=== PATIENT | female | born 1940 | race Caucasian/White ===

== ENCOUNTER 2017-06-03 06:57 | Outpatient (RCR) | payer MEDICARE, SELFPAY ==
[2017-06-03 08:18] LABS: Absolute Neutrophil Count 1.9 X10^3/uL (2.0-7.7); Basophil# 0.01 X10^3/uL; Basophil% 0.3 % (0-1); Eosinophil# 0.07 X10^3/uL; Eosinophils% 2.4 % (0-5); Hematocrit 28.4 % (37-47); Hemoglobin 9.3 g/dl (12.0-15.0); Lymphocyte % 24.1 % (19-41); Mean Corp Hgb Conc 32.7 g/gl (32-36); Mean Corpuscular Hgb 36.5 pg (27.0-32.0); Mean Corpuscular Volume 111.4 fL (81-99); Mean Platelet Vol. 12.2 fl (6.2-12.0); Monocyte# 0.18 X10^3/uL; Monocyte% 6.2 % (0-10); Neutrophil # 1.93 X10^3/uL (2.7-7.7); Neutrophil % 66.7 % (47-70); Platelet Count 105 K/mm3 (150-450); RBC Distribution Width CV 16.4 % (11.6-14.6); RBC Distribution Width SD 66.6 fl (35.1-43.9); Red Blood Count 2.55 M/mm3 (4.2-5.4); White Blood Count 2.9 K/mm3 (4.4-11.0)
[2017-06-03 08:20] LABS: Differential Indicated SCAN CRITERIA MET; POSITIVE COUNT NO; POSITIVE DIFFERENTIAL NO; POSITIVE MORPHOLOGY YES
[2017-06-03 08:42] LABS: ALB/GLOB Ratio 1.1 RATIO (0.9-2.4); AST(SGOT) 21 U/L (15-37); Alanine Aminotransfer ALT/SGPT 24 U/L (12-78); Albumin, Serum 3.5 g/dL (3.4-5.0); Alkaline Phosphatase 51 U/L (45-117); Anion Gap 11 (5-15); Anisocytosis 2+; BUN 30 mg/dL (7-18); BUN/Creat Ratio 26.5 RATIO (10-20); Calcium,Total 8.9 mg/dL (8.5-10.1); Chloride 106 mmol/L (98-107); Creatinine, Serum 1.13 mg/dL (0.55-1.02); Differential Comment SCANNED; EST Glomerular Filtration Rate 50 mL/min (>60); Est Glom Filt Rate - Afr Amer 60 mL/min (>60); Globulin 3.3 g/dL (2.2-4.2); Glucose 148 mg/dL (70-110); Potassium 4.4 mmol/L (3.5-5.1); Protein, Total 6.8 g/dL (6.4-8.2); Sodium Level 140 mmol/L (136-145)
[2017-06-03 08:43] LABS: Macrocytosis 2+
== END 2017-06-03 07:15 | disposition home or self-care (01) ==
LOC: LAB 06:57
PROVIDERS: Family Provider Internal Medicine; PCP Internal Medicine; Visit Provider Nurse Practitioner Acute Care
DX: G70.00 Myasthenia gravis without (acute) exacerbation (principal); Z51.81 Encounter for therapeutic drug level monitoring
CPT/HCPCS: 36415; 80053; 85025

== ENCOUNTER 2017-07-01 07:02 | Outpatient (RCR) | payer MEDICARE, SELFPAY ==
[2017-07-01 09:22] LABS: Absolute Lymphocyte Count 0.53 X10^3/ul (0.83-4.51); Absolute Neutrophil Count 1.7 X10^3/uL (2.0-7.7); Basophil# 0.01 X10^3/uL; Basophil% 0.4 % (0-1); Eosinophil# 0.06 X10^3/uL; Eosinophils% 2.4 % (0-5); Hematocrit 27.9 % (37-47); Hemoglobin 9.1 g/dl (12.0-15.0); Lymphocyte # 0.53 X10^3/ul (4.0); Lymphocyte % 21.5 % (19-41); Mean Corp Hgb Conc 32.6 g/gl (32-36); Mean Corpuscular Volume 113.4 fL (81-99); Mean Platelet Vol. 10.6 fl (6.2-12.0); Monocyte% 8.1 % (0-10); Neutrophil # 1.66 X10^3/uL (2.7-7.7); Neutrophil % 67.6 % (47-70); Platelet Count 103 K/mm3 (150-450); RBC Distribution Width CV 16.2 % (11.6-14.6); RBC Distribution Width SD 63.2 fl (35.1-43.9); Red Blood Count 2.46 M/mm3 (4.2-5.4); White Blood Count 2.5 K/mm3 (4.4-11.0)
[2017-07-01 09:24] LABS: Differential Indicated SCAN CRITERIA MET; POSITIVE COUNT NO; POSITIVE DIFFERENTIAL YES; POSITIVE MORPHOLOGY NO
[2017-07-01 09:27] LABS: ALB/GLOB Ratio 1.1 RATIO (0.9-2.4); AST(SGOT) 27 U/L (15-37); Alanine Aminotransfer ALT/SGPT 22 U/L (13-56); Albumin, Serum 3.5 g/dL (3.2-5.0); Alkaline Phosphatase 53 U/L (45-117); Anion Gap 12 (5-15); BUN 19 mg/dL (7-18); BUN/Creat Ratio 19.5 RATIO (10-20); Chloride 102 mmol/L (98-107); Creatinine, Serum 0.98 mg/dL (0.55-1.02); EST Glomerular Filtration Rate 59 mL/min (>60); Est Glom Filt Rate - Afr Amer 72 mL/min (>60); Globulin 3.1 g/dL (2.2-4.2); Glucose 150 mg/dL (74-106); Potassium 4.2 mmol/L (3.5-5.1); Protein, Total 6.6 g/dL (6.4-8.2); Sodium Level 138 mmol/L (136-145)
[2017-07-08 08:30] LABS: ACHR AB Modulating <12 % (0-20); ACHR Recep AB, Blocking 47 % (0-25)
== END 2017-07-01 07:30 | disposition home or self-care (01) ==
LOC: LAB 07:02
PROVIDERS: Psychiatry & Neurology Neurology; Family Provider Internal Medicine; PCP Internal Medicine; Visit Provider Nurse Practitioner Acute Care
DX: Z51.81 Encounter for therapeutic drug level monitoring (principal); G70.00 Myasthenia gravis without (acute) exacerbation
CPT/HCPCS: 36415; 80053; 83519; 85025

== ENCOUNTER 2017-08-05 06:59 | Outpatient (RCR) | payer MEDICARE, SELFPAY ==
[2017-08-05 08:05] LABS: Absolute Lymphocyte Count 0.72 X10^3/ul (0.83-4.51); Absolute Neutrophil Count 2.4 X10^3/uL (2.0-7.7); Basophil# 0.01 X10^3/uL; Basophil% 0.3 % (0-1); Eosinophil# 0.09 X10^3/uL; Eosinophils% 2.6 % (0-5); Hematocrit 27.9 % (37-47); Hemoglobin 9.3 g/dl (12.0-15.0); Lymphocyte # 0.72 X10^3/ul (4.0); Lymphocyte % 20.7 % (19-41); Mean Corp Hgb Conc 33.3 g/gl (32-36); Mean Corpuscular Volume 108.1 fL (81-99); Mean Platelet Vol. 11.9 fl (6.2-12.0); Monocyte# 0.27 X10^3/uL; Monocyte% 7.8 % (0-10); Neutrophil # 2.39 X10^3/uL (2.7-7.7); Neutrophil % 68.6 % (47-70); Platelet Count 95 K/mm3 (150-450); RBC Distribution Width CV 16.3 % (11.6-14.6); RBC Distribution Width SD 64.2 fl (35.1-43.9); Red Blood Count 2.58 M/mm3 (4.2-5.4); White Blood Count 3.5 K/mm3 (4.4-11.0)
[2017-08-05 08:14] LABS: POSITIVE COUNT NO; POSITIVE DIFFERENTIAL NO; POSITIVE MORPHOLOGY NO
[2017-08-05 08:49] LABS: ALB/GLOB Ratio 1.1 RATIO (0.9-2.4); AST(SGOT) 26 U/L (15-37); Alanine Aminotransfer ALT/SGPT 23 U/L (13-56); Albumin, Serum 3.4 g/dL (3.2-5.0); Alkaline Phosphatase 52 U/L (45-117); Anion Gap 10 (5-15); BUN 26 mg/dL (7-18); BUN/Creat Ratio 24.5 RATIO (10-20); Calcium,Total 8.4 mg/dL (8.5-10.1); Chloride 105 mmol/L (98-107); Creatinine, Serum 1.06 mg/dL (0.55-1.02); EST Glomerular Filtration Rate 54 mL/min (>60); Est Glom Filt Rate - Afr Amer 65 mL/min (>60); Glucose 162 mg/dL (74-106); Potassium 4.3 mmol/L (3.5-5.1); Protein, Total 6.4 g/dL (6.4-8.2); Sodium Level 137 mmol/L (136-145)
== END 2017-08-05 07:00 | disposition home or self-care (01) ==
LOC: LAB 06:59
PROVIDERS: Family Provider Internal Medicine; PCP Internal Medicine; Visit Provider Nurse Practitioner Acute Care
DX: Z51.81 Encounter for therapeutic drug level monitoring (principal)
CPT/HCPCS: 36415; 80053; 85025

== ENCOUNTER 2017-09-02 07:02 | Outpatient (RCR) | payer MEDICARE, SELFPAY ==
[2017-09-02 08:28] LABS: Absolute Lymphocyte Count 1.12 X10^3/ul (0.83-4.51); Absolute Neutrophil Count 2.6 X10^3/uL (2.0-7.7); Basophil# 0.02 X10^3/uL; Basophil% 0.5 % (0-1); Eosinophil# 0.09 X10^3/uL; Eosinophils% 2.1 % (0-5); Hematocrit 29.7 % (37-47); Hemoglobin 9.6 g/dl (12.0-15.0); Lymphocyte # 1.12 X10^3/ul (4.0); Lymphocyte % 25.9 % (19-41); Mean Corp Hgb Conc 32.3 g/gl (32-36); Mean Corpuscular Hgb 34.3 pg (27.0-32.0); Mean Corpuscular Volume 106.1 fL (81-99); Mean Platelet Vol. 10.3 fl (6.2-12.0); Monocyte# 0.45 X10^3/uL; Monocyte% 10.4 % (0-10); Neutrophil # 2.64 X10^3/uL (2.7-7.7); Neutrophil % 60.9 % (47-70); Platelet Count 84 K/mm3 (150-450); RBC Distribution Width CV 15.1 % (11.6-14.6); White Blood Count 4.3 K/mm3 (4.4-11.0)
[2017-09-02 08:29] LABS: POSITIVE COUNT NO; POSITIVE DIFFERENTIAL NO; POSITIVE MORPHOLOGY NO
[2017-09-02 09:00] LABS: ALB/GLOB Ratio 1.2 RATIO (0.9-2.4); AST(SGOT) 25 U/L (15-37); Alanine Aminotransfer ALT/SGPT 29 U/L (13-56); Albumin, Serum 3.5 g/dL (3.2-5.0); Alkaline Phosphatase 60 U/L (45-117); Anion Gap 5 (5-15); BUN 24 mg/dL (7-18); BUN/Creat Ratio 20.9 RATIO (10-20); Calcium,Total 8.7 mg/dL (8.5-10.1); Chloride 109 mmol/L (98-107); Creatinine, Serum 1.15 mg/dL (0.55-1.02); EST Glomerular Filtration Rate 49 mL/min (>60); Est Glom Filt Rate - Afr Amer 59 mL/min (>60); Globulin 2.9 g/dL (2.2-4.2); Glucose 140 mg/dL (74-106); Potassium 4.1 mmol/L (3.5-5.1); Protein, Total 6.4 g/dL (6.4-8.2); Sodium Level 140 mmol/L (136-145)
== END 2017-09-02 08:00 | disposition home or self-care (01) ==
LOC: LAB 07:02
PROVIDERS: Family Provider Internal Medicine; PCP Internal Medicine; Visit Provider Nurse Practitioner Acute Care
DX: Z51.81 Encounter for therapeutic drug level monitoring (principal)
CPT/HCPCS: 36415; 80053; 85025

== ENCOUNTER 2017-09-24 15:22 | Emergency (ER) | payer MEDICARE, SELFPAY ==
[2017-09-24 15:25] VITALS: BP 178/80; PULSE 71; RESP 16; TEMP 36.5; O2SAT 98; BMI 45.1
--- NOTE | 2017-09-24 15:37 | RAD_ITS ---
STUDY: X-RAY CHEST REASON FOR EXAM: Female, 77 years old. Cough and shortness of breath. TECHNIQUE: PA and lateral views of the chest. COMPARISON: CT of the chest dated September 26, 2014 FINDINGS: Cardiac monitoring leads are present. The lungs are clear and expanded. There is no demonstrated pleural abnormality. There is mild cardiac enlargement. There are calcified mediastinal and hilar lymph nodes. Normal visualized pulmonary arteries. There is atherosclerotic calcification of the aortic arch with tortuosity. There is demineralization of the osseous structures. There is multilevel thoracic spondylosis. Normal visualized ribs, clavicles, and shoulders. There is no demonstrated abnormality of the visualized soft tissue structures of the upper abdomen. RAD/Chest PA and Lateral IMPRESSION: Mild cardiomegaly without evidence of acute cardiopulmonary disease. Electronically Signed: Sparkle Lu MD at 16:43 EDT , Service support ,
--- NOTE | 2017-09-24 15:37 | EKG12_ITS ---
Test Reason : DYSRHYTHMIA Blood Pressure : / mmHG Vent. Rate : 066 BPM Atrial Rate : 066 BPM P-R Int : 216 ms QRS Dur : 078 ms QT Int : 382 ms P-R-T Axes : -06 047 016 degrees QTc Int : 400 ms Sinus rhythm with 1st degree A-V block Low voltage QRS Borderline ECG Confirmed by SAMMY SHERWOOD, ANIYA ([id number]), science editor AMISHA ESCOTO ([id number]) on 09/26/2017 3:03:40 PM Referred By: RUSTAM Confirmed By:ANIYA CHRISTIANSON MD
--- NOTE | 2017-09-24 15:40 | NURSING ---
NO OLD EKGS
[2017-09-24 16:00] VITALS: RESP 12
[2017-09-24 16:01] VITALS: O2SAT 96
[2017-09-24] MEDS: Ipratropium/Albuterol Sulfate 3 ML AMPUL.NEB INHALATION (16:13)
[2017-09-24 16:15] VITALS: PULSE 67; RESP 12
[2017-09-24 16:20] LABS: Absolute Lymphocyte Count 0.56 X10^3/ul (0.83-4.51); Absolute Neutrophil Count 2.2 X10^3/uL (2.0-7.7); Anion Gap 7 (5-15); BUN 22 mg/dL (7-18); BUN/Creat Ratio 21.2 RATIO (10-20); Basophil# 0.02 X10^3/uL; Basophil% 0.6 % (0-1); Chloride 105 mmol/L (98-107); Creatinine, Serum 1.04 mg/dL (0.55-1.02); EST Glomerular Filtration Rate 55 mL/min (>60); Eosinophil# 0.11 X10^3/uL; Eosinophils% 3.2 % (0-5); Est Glom Filt Rate - Afr Amer 66 mL/min (>60); Estimated Creatinine Clearance 36.97 ml/min; Glucose 236 mg/dL (74-106); Hematocrit 29.4 % (37-47); Hemoglobin 9.6 g/dl (12.0-15.0); Lymphocyte # 0.56 X10^3/ul (4.0); Lymphocyte % 16.2 % (19-41); Mean Corp Hgb Conc 32.7 g/gl (32-36); Mean Corpuscular Hgb 33.8 pg (27.0-32.0); Mean Corpuscular Volume 103.5 fL (81-99); Mean Platelet Vol. 11.3 fl (6.2-12.0); Monocyte# 0.52 X10^3/uL; Monocyte% 15.1 % (0-10); Neutrophil # 2.24 X10^3/uL (2.7-7.7); Neutrophil % 64.9 % (47-70); Platelet Count 81 K/mm3 (150-450); Potassium 4.9 mmol/L (3.5-5.1); RBC Distribution Width CV 14.5 % (11.6-14.6); RBC Distribution Width SD 53.5 fl (35.1-43.9); Red Blood Count 2.84 M/mm3 (4.2-5.4); Sodium Level 136 mmol/L (136-145); White Blood Count 3.5 K/mm3 (4.4-11.0)
[2017-09-24 16:21] LABS: Differential Indicated SCAN CRITERIA MET; POSITIVE COUNT NO; POSITIVE DIFFERENTIAL YES; POSITIVE MORPHOLOGY NO
[2017-09-24 16:40] LABS: Anisocytosis RARE; Platelet Estimate MOD DEC (ADEQ)
[2017-09-24 16:41] LABS: Macrocytosis 1+; Ovalocyte RARE
[2017-09-24 17:08] LABS: BNP,B-Type NATRIURETIC PEPTIDE 44.9 pg/mL (0-100)
--- NOTE | 2017-09-24 17:28 | ED.DCSUM_ITS ---
- ER Visit Summary Date of Service: 09/24/17 Chief Complaint: [Dyspnea] History of Present Illness: The patient is a 77 F [presents the emergency department with shortness of breath over the last 2 days. Patient states that she has had a cough for about 4 or 5 days but thought it was just some allergies. Patient is concerned because she has had issues with her myasthenia gravis in the past where she required intubation 3 years ago. Since patient's been medicated and compliant with her myasthenia medication she has not had any issues. Patient has not had a fever at home. Cough is mostly nonproductive.] Physical Examination: [HEENT-PERRLA, EOMI. Cranial nerves II through XII grossly intact. TMs clear. Mucous membranes moist. No adenopathy. Cardiovascular-regular rate and rhythm without murmur or ectopy Lungs-good aeration bilaterally with some faint expiratory wheezes noted bilaterally. There is no accessory muscle use or retractions. Abdomen-normoactive bowel sounds, soft, nontender, no rebound or rigidity, no peritoneal signs. Extremities-intact ?4, normal range of motion, normal pulses, atraumatic] Test Results: [EKG obtained on arrival showed a sinus rhythm with a ventricular rate of 66 bpm. CBC with differential showed a white blood cell count of 3.5, hemoglobin 9.6, hematocrit 30, platelets E1. Chemistries unremarkable. Glucose was 236. Troponin is less than 0.015. BNP was 45. NIF was 30. Chest x-ray showed some mild cardiomegaly otherwise nothing acute.] Emergency Department Course and Treatment: [Patient was treated with DuoNeb aerosol. Patient was started on Zithromax.] Treatment Plan: [Patient will be started on Zithromax and given an albuterol MDI.] Patient advised to follow-up with her primary care physician within next 3-5 days. Disposition: [Discharged home in stable condition.] Impression: [Asthmatic bronchitis] This note was generated with [employer] dictation software. It may contain incorrect words, spelling, and punctuation that were not noted in review of the chart prior to signing ED Disposition - Plan for ED Patient: Chief Complaint: Shortness of Breath Referrals: Hector Del Cid MD [Primary Care Provider] -
--- NOTE | 2017-09-24 17:28 | ED.DEP ---
ED Disposition - Plan for ED Patient: Chief Complaint: Shortness of Breath Instructions: ED Bronchitis Asthmatic Prescriptions: Azithromycin [Zithromax] 250 mg PO DAILY #4 tab Referrals: Hector Del Cid MD [Primary Care Provider] - 3-5 Days
[2017-09-24 17:40] VITALS: PULSE 68; RESP 16
[2017-09-24 17:59] VITALS: BP 152/83; PULSE 64; RESP 18; O2SAT 97
--- NOTE | 2017-09-25 15:52 | CM.ED ---
ED CALLBACK: Follow-up call placed to patient. No answer and no voicemail machine.
== END 2017-09-24 18:01 | disposition home or self-care (01) ==
LOC: ED 16:22
PROVIDERS: Emergency Provider Emergency Medicine; Family Provider Internal Medicine; PCP Internal Medicine
DX: J45.909 Unspecified asthma, uncomplicated (principal); G70.00 Myasthenia gravis without (acute) exacerbation; I10 Essential (primary) hypertension; E11.9 Type 2 diabetes mellitus without complications; E78.00 Pure hypercholesterolemia, unspecified; Z79.82 Long term (current) use of aspirin; Z79.4 Long term (current) use of insulin; Z79.84 Long term (current) use of oral hypoglycemic drugs; Z79.899 Other long term (current) drug therapy
CPT/HCPCS: 71046; 80048; 83880; 84484; 85025; 93005; 94640; 95831; 99284; A4216

== ENCOUNTER 2017-09-30 06:57 | Outpatient (RCR) | payer MEDICARE, SELFPAY ==
[2017-09-30 07:52] LABS: Absolute Lymphocyte Count 0.78 X10^3/ul (0.83-4.51); Absolute Neutrophil Count 1.9 X10^3/uL (2.0-7.7); Basophil# 0.01 X10^3/uL; Basophil% 0.3 % (0-1); Eosinophil# 0.11 X10^3/uL; Eosinophils% 3.6 % (0-5); Hematocrit 28.3 % (37-47); Hemoglobin 9.3 g/dl (12.0-15.0); Lymphocyte # 0.78 X10^3/ul (4.0); Lymphocyte % 25.6 % (19-41); Mean Corp Hgb Conc 32.9 g/gl (32-36); Mean Corpuscular Hgb 33.5 pg (27.0-32.0); Mean Corpuscular Volume 101.8 fL (81-99); Mean Platelet Vol. 10.8 fl (6.2-12.0); Monocyte# 0.25 X10^3/uL; Monocyte% 8.2 % (0-10); Neutrophil # 1.89 X10^3/uL (2.7-7.7); POSITIVE COUNT NO; POSITIVE DIFFERENTIAL NO; POSITIVE MORPHOLOGY NO; Platelet Count 78 K/mm3 (150-450); RBC Distribution Width CV 14.2 % (11.6-14.6); RBC Distribution Width SD 50.5 fl (35.1-43.9); Red Blood Count 2.78 M/mm3 (4.2-5.4); White Blood Count 3.1 K/mm3 (4.4-11.0)
[2017-09-30 08:22] LABS: ALB/GLOB Ratio 1.1 RATIO (0.9-2.4); AST(SGOT) 32 U/L (15-37); Alanine Aminotransfer ALT/SGPT 33 U/L (13-56); Albumin, Serum 3.5 g/dL (3.2-5.0); Alkaline Phosphatase 55 U/L (45-117); Anion Gap 9 (5-15); BUN 21 mg/dL (7-18); Calcium,Total 8.6 mg/dL (8.5-10.1); Chloride 107 mmol/L (98-107); Creatinine, Serum 1.31 mg/dL (0.55-1.02); EST Glomerular Filtration Rate 42 mL/min (>60); Est Glom Filt Rate - Afr Amer 51 mL/min (>60); Globulin 3.2 g/dL (2.2-4.2); Glucose 129 mg/dL (74-106); Potassium 4.3 mmol/L (3.5-5.1); Protein, Total 6.7 g/dL (6.4-8.2); Sodium Level 136 mmol/L (136-145)
== END 2017-09-30 07:00 | disposition home or self-care (01) ==
LOC: LAB 06:57
PROVIDERS: Family Provider Internal Medicine; PCP Internal Medicine; Visit Provider Nurse Practitioner Acute Care
DX: Z51.81 Encounter for therapeutic drug level monitoring (principal); G70.00 Myasthenia gravis without (acute) exacerbation
CPT/HCPCS: 36415; 80053; 85025

== ENCOUNTER → 2017-10-25 16:02 | Outpatient (CLI) | payer MEDICARE, SELFPAY ==
[2017-10-25 17:18] LABS: Ferritin 42 ng/mL (8-252); Iron 70 ug/dL (50-170); Iron Binding Capacity,Total 393 ug/dL (250-450); Rheumatoid Factor < 10.0 IU/mL (<15)
[2017-10-25 17:24] LABS: Vitamin B12 949 pg/mL (211-911)
[2017-10-26 13:48] LABS: ANTINUCLEAR ANTIBODIES DIRECT Negative (Negative)
[2017-10-27 11:19] LABS: CCP IgG Antibodies 9 units (0-19)
== END ==
PROVIDERS: Family Provider Internal Medicine; PCP Internal Medicine; Visit Provider Internal Medicine Hematology & Oncology
DX: D61.818 Other pancytopenia (principal); D63.8 Anemia in other chronic diseases classified elsewhere; M06.9 Rheumatoid arthritis, unspecified
CPT/HCPCS: 82607; 82728; 83540; 83550; 86038; 86200; 86431

== ENCOUNTER 2017-11-04 07:05 | Outpatient (RCR) | payer MEDICARE, SELFPAY ==
[2017-11-04 07:55] LABS: Absolute Lymphocyte Count 0.95 X10^3/ul (0.83-4.51); Absolute Neutrophil Count 3.2 X10^3/uL (2.0-7.7); Basophil# 0.02 X10^3/uL; Basophil% 0.4 % (0-1); Eosinophil# 0.13 X10^3/uL; Eosinophils% 2.7 % (0-5); Hematocrit 31.5 % (37-47); Hemoglobin 10.4 g/dl (12.0-15.0); Lymphocyte # 0.95 X10^3/ul (4.0); Lymphocyte % 19.6 % (19-41); Mean Corpuscular Hgb 30.3 pg (27.0-32.0); Mean Corpuscular Volume 91.8 fL (81-99); Mean Platelet Vol. 10.8 fl (6.2-12.0); Monocyte# 0.56 X10^3/uL; Monocyte% 11.6 % (0-10); Neutrophil # 3.18 X10^3/uL (2.7-7.7); Neutrophil % 65.7 % (47-70); Platelet Count 103 K/mm3 (150-450); RBC Distribution Width CV 14.8 % (11.6-14.6); RBC Distribution Width SD 50.3 fl (35.1-43.9); Red Blood Count 3.43 M/mm3 (4.2-5.4); White Blood Count 4.8 K/mm3 (4.4-11.0)
[2017-11-04 07:56] LABS: POSITIVE COUNT NO; POSITIVE DIFFERENTIAL NO; POSITIVE MORPHOLOGY NO
[2017-11-04 08:08] LABS: AST(SGOT) 31 U/L (15-37); Alanine Aminotransfer ALT/SGPT 32 U/L (13-56); Albumin, Serum 3.4 g/dL (3.2-5.0); Alkaline Phosphatase 54 U/L (45-117); Anion Gap 9 (5-15); BUN 24 mg/dL (7-18); BUN/Creat Ratio 22.9 RATIO (10-20); Calcium,Total 9.2 mg/dL (8.5-10.1); Chloride 99 mmol/L (98-107); Creatinine, Serum 1.05 mg/dL (0.55-1.02); EST Glomerular Filtration Rate 54 mL/min (>60); Est Glom Filt Rate - Afr Amer 66 mL/min (>60); Globulin 3.5 g/dL (2.2-4.2); Glucose 148 mg/dL (74-106); Potassium 4.3 mmol/L (3.5-5.1); Protein, Total 6.9 g/dL (6.4-8.2); Sodium Level 126 mmol/L (136-145)
== END 2017-11-04 08:30 | disposition home or self-care (01) ==
LOC: LAB 07:05
PROVIDERS: Family Provider Internal Medicine; PCP Internal Medicine; Visit Provider Nurse Practitioner Acute Care
DX: G70.00 Myasthenia gravis without (acute) exacerbation (principal); Z51.81 Encounter for therapeutic drug level monitoring
CPT/HCPCS: 36415; 80053; 85025

== ENCOUNTER 2017-12-02 07:00 | Outpatient (RCR) | payer MEDICARE, SELFPAY ==
[2017-12-02 08:47] LABS: Absolute Lymphocyte Count 0.95 X10^3/ul (0.83-4.51); Absolute Neutrophil Count 2.7 X10^3/uL (2.0-7.7); Basophil# 0.02 X10^3/uL; Basophil% 0.5 % (0-1); Eosinophil# 0.12 X10^3/uL; Eosinophils% 2.9 % (0-5); Hematocrit 31.5 % (37-47); Hemoglobin 10.2 g/dl (12.0-15.0); Lymphocyte # 0.95 X10^3/ul (4.0); Lymphocyte % 23.1 % (19-41); Mean Corp Hgb Conc 32.4 g/gl (32-36); Mean Corpuscular Hgb 30.1 pg (27.0-32.0); Mean Corpuscular Volume 92.9 fL (81-99); Mean Platelet Vol. 10.9 fl (6.2-12.0); Monocyte% 7.3 % (0-10); Neutrophil # 2.72 X10^3/uL (2.7-7.7); Neutrophil % 66.2 % (47-70); Platelet Count 100 K/mm3 (150-450); RBC Distribution Width CV 14.7 % (11.6-14.6); Red Blood Count 3.39 M/mm3 (4.2-5.4); White Blood Count 4.1 K/mm3 (4.4-11.0)
[2017-12-02 08:48] LABS: POSITIVE COUNT NO; POSITIVE DIFFERENTIAL NO; POSITIVE MORPHOLOGY NO
[2017-12-02 09:01] LABS: ALB/GLOB Ratio 1.1 RATIO (0.9-2.4); AST(SGOT) 23 U/L (15-37); Alanine Aminotransfer ALT/SGPT 28 U/L (13-56); Albumin, Serum 3.6 g/dL (3.2-5.0); Alkaline Phosphatase 51 U/L (45-117); Anion Gap 8 (5-15); BUN 23 mg/dL (7-18); BUN/Creat Ratio 21.9 RATIO (10-20); Calcium,Total 9.2 mg/dL (8.5-10.1); Chloride 102 mmol/L (98-107); Creatinine, Serum 1.05 mg/dL (0.55-1.02); EST Glomerular Filtration Rate 54 mL/min (>60); Est Glom Filt Rate - Afr Amer 66 mL/min (>60); Globulin 3.2 g/dL (2.2-4.2); Glucose 159 mg/dL (74-106); Potassium 4.1 mmol/L (3.5-5.1); Protein, Total 6.8 g/dL (6.4-8.2); Sodium Level 134 mmol/L (136-145)
== END 2017-12-02 08:00 | disposition home or self-care (01) ==
LOC: LAB 07:00
PROVIDERS: Family Provider Internal Medicine; PCP Internal Medicine; Visit Provider Nurse Practitioner Acute Care
DX: Z51.81 Encounter for therapeutic drug level monitoring (principal)
CPT/HCPCS: 36415; 80053; 85025

== ENCOUNTER 2017-12-30 07:04 | Outpatient (RCR) | payer MEDICARE, SELFPAY ==
[2017-12-30 09:16] LABS: Absolute Lymphocyte Count 0.85 X10^3/ul (0.83-4.51); Absolute Neutrophil Count 2.8 X10^3/uL (2.0-7.7); Basophil# 0.01 X10^3/uL; Basophil% 0.2 % (0-1); Eosinophil# 0.08 X10^3/uL; Hematocrit 32.4 % (37-47); Hemoglobin 10.5 g/dl (12.0-15.0); Lymphocyte # 0.85 X10^3/ul (4.0); Lymphocyte % 20.9 % (19-41); Mean Corp Hgb Conc 32.4 g/gl (32-36); Mean Corpuscular Hgb 29.7 pg (27.0-32.0); Mean Corpuscular Volume 91.8 fL (81-99); Mean Platelet Vol. 10.7 fl (6.2-12.0); Monocyte# 0.35 X10^3/uL; Monocyte% 8.6 % (0-10); Neutrophil # 2.78 X10^3/uL (2.7-7.7); Neutrophil % 68.3 % (47-70); Platelet Count 98 K/mm3 (150-450); RBC Distribution Width CV 15.1 % (11.6-14.6); RBC Distribution Width SD 50.8 fl (35.1-43.9); Red Blood Count 3.53 M/mm3 (4.2-5.4); White Blood Count 4.1 K/mm3 (4.4-11.0)
[2017-12-30 09:21] LABS: POSITIVE COUNT NO; POSITIVE DIFFERENTIAL NO; POSITIVE MORPHOLOGY NO
[2017-12-30 09:35] LABS: Microalbumin,Random Urine 8.8 mg/L (NO RANGE EST.); Microalbumin:Creatinine Ratio 15.3 mg/g CRE (<30 mg/g CRE)
[2017-12-30 09:48] LABS: ALB/GLOB Ratio 1.2 RATIO (0.9-2.4); AST(SGOT) 28 U/L (15-37); Alanine Aminotransfer ALT/SGPT 29 U/L (13-56); Albumin, Serum 3.6 g/dL (3.2-5.0); Alkaline Phosphatase 56 U/L (45-117); Anion Gap 10 (5-15); BUN 17 mg/dL (7-18); BUN/Creat Ratio 16.2 RATIO (10-20); Calcium,Total 8.8 mg/dL (8.5-10.1); Chloride 103 mmol/L (98-107); Cholesterol 130 mg/dL (200); Creatinine, Serum 1.05 mg/dL (0.55-1.02); EST Glomerular Filtration Rate 54 mL/min (>60); Est Glom Filt Rate - Afr Amer 66 mL/min (>60); Globulin 3.1 g/dL (2.2-4.2); Glucose 142 mg/dL (74-106); High Density Lipoprotein 61 mg/dL; Potassium 4.1 mmol/L (3.5-5.1); Protein, Total 6.7 g/dL (6.4-8.2); Sodium Level 136 mmol/L (136-145); Triglycerides 146 mg/dL; Very Low Density Lipoprotein 29 mg/dL (5-40)
[2017-12-30 09:49] LABS: Hemoglobin A1c 6.2 % (4.2-6.3)
== END 2017-12-30 08:00 | disposition home or self-care (01) ==
LOC: LAB 07:04
PROVIDERS: Family Provider Internal Medicine; PCP Internal Medicine; Visit Provider Nurse Practitioner Acute Care
DX: Z51.81 Encounter for therapeutic drug level monitoring (principal); G70.00 Myasthenia gravis without (acute) exacerbation; E11.42 Type 2 diabetes mellitus with diabetic polyneuropathy; E78.5 Hyperlipidemia, unspecified
CPT/HCPCS: 36415; 80053; 80061; 82043; 82570; 83036; 85025

== ENCOUNTER → 2018-01-25 16:00 | Outpatient (CLI) | payer MEDICARE, SELFPAY | PROVIDERS: Family Provider Internal Medicine; PCP Internal Medicine; Visit Provider Nurse Practitioner Acute Care | DX: G47.33 Obstructive sleep apnea (adult) (pediatric) (principal) ==

== ENCOUNTER → 2018-02-01 16:51 | Outpatient (CLI) | payer MEDICARE, SELFPAY ==
[2018-02-01 17:19] LABS: Ferritin 34 ng/mL (8-252); Iron 67 ug/dL (50-170); Iron Binding Capacity,Total 412 ug/dL (250-450)
== END ==
PROVIDERS: Referring Provider Internal Medicine Hematology & Oncology; Visit Provider Internal Medicine Hematology & Oncology
DX: N18.3 Chronic kidney disease, stage 3 (moderate) (principal); D63.1 Anemia in chronic kidney disease
CPT/HCPCS: 82728; 83540; 83550

== ENCOUNTER 2018-02-03 07:02 | Outpatient (RCR) | payer MEDICARE, SELFPAY ==
[2018-02-03 07:42] LABS: Hematocrit 31.5 % (37-47); Hemoglobin 10.5 g/dl (12.0-15.0); Mean Corp Hgb Conc 33.3 g/gl (32-36); Mean Corpuscular Hgb 30.6 pg (27.0-32.0); Mean Corpuscular Volume 91.8 fL (81-99); Mean Platelet Vol. 10.2 fl (6.2-12.0); Platelet Count 90 K/mm3 (150-450); RBC Distribution Width CV 14.6 % (11.6-14.6); RBC Distribution Width SD 47.3 fl (35.1-43.9); Red Blood Count 3.43 M/mm3 (4.2-5.4); Scan Indicated on CBC? Y/N NO; White Blood Count 4.2 K/mm3 (4.4-11.0)
== END 2018-02-03 08:00 | disposition home or self-care (01) ==
LOC: LAB 07:02
PROVIDERS: Referring Provider Nurse Practitioner Acute Care; Visit Provider Nurse Practitioner Acute Care
DX: G70.00 Myasthenia gravis without (acute) exacerbation (principal); E11.42 Type 2 diabetes mellitus with diabetic polyneuropathy; E87.5 Hyperkalemia; Z51.81 Encounter for therapeutic drug level monitoring; Z79.899 Other long term (current) drug therapy
CPT/HCPCS: 36415; 85027

== ENCOUNTER → 2018-02-13 14:58 | Outpatient (CLI) | payer MEDICARE, SELFPAY | PROVIDERS: Family Provider Internal Medicine; PCP Internal Medicine; Visit Provider Nurse Practitioner Acute Care | DX: Z00.00 Encounter for general adult medical examination without abnormal findings (principal) ==

== ENCOUNTER 2018-03-03 06:59 | Outpatient (RCR) | payer MEDICARE, SELFPAY ==
[2018-03-03 09:46] LABS: Hemoglobin 10.8 g/dl (12.0-15.0); Mean Corp Hgb Conc 32.7 g/gl (32-36); Mean Corpuscular Hgb 29.9 pg (27.0-32.0); Mean Corpuscular Volume 91.4 fL (81-99); Mean Platelet Vol. 11.8 fl (6.2-12.0); Platelet Count 108 K/mm3 (150-450); RBC Distribution Width CV 14.5 % (11.6-14.6); RBC Distribution Width SD 47.4 fl (35.1-43.9); Red Blood Count 3.61 M/mm3 (4.2-5.4); White Blood Count 5.3 K/mm3 (4.4-11.0)
[2018-03-03 09:49] LABS: Scan Indicated on CBC? Y/N NO
== END 2018-03-03 08:00 | disposition home or self-care (01) ==
LOC: LAB 06:59
PROVIDERS: Family Provider Internal Medicine; PCP Internal Medicine; Referring Provider Nurse Practitioner Acute Care; Visit Provider Nurse Practitioner Acute Care
DX: G70.00 Myasthenia gravis without (acute) exacerbation (principal); Z51.81 Encounter for therapeutic drug level monitoring
CPT/HCPCS: 36415; 85027

== ENCOUNTER 2018-03-31 06:58 | Outpatient (RCR) | payer MEDICARE, SELFPAY ==
[2018-03-31 08:02] LABS: Hematocrit 32.8 % (37-47); Hemoglobin 10.7 g/dl (12.0-15.0); Mean Corp Hgb Conc 32.6 g/gl (32-36); Mean Corpuscular Volume 88.9 fL (81-99); Mean Platelet Vol. 10.8 fl (6.2-12.0); Platelet Count 100 K/mm3 (150-450); RBC Distribution Width CV 14.3 % (11.6-14.6); RBC Distribution Width SD 46.4 fl (35.1-43.9); Red Blood Count 3.69 M/mm3 (4.2-5.4); White Blood Count 4.7 K/mm3 (4.4-11.0)
[2018-03-31 08:07] LABS: Scan Indicated on CBC? Y/N NO
== END 2018-04-06 10:20 | disposition home or self-care (01) ==
LOC: LAB 06:58
PROVIDERS: Family Provider Internal Medicine; PCP Internal Medicine; Referring Provider Nurse Practitioner Acute Care; Visit Provider Nurse Practitioner Acute Care
DX: G70.00 Myasthenia gravis without (acute) exacerbation (principal); Z51.81 Encounter for therapeutic drug level monitoring
CPT/HCPCS: 36415; 85027

== ENCOUNTER 2018-05-05 07:03 | Outpatient (RCR) | payer MEDICARE, SELFPAY ==
[2018-05-05 08:45] LABS: Hemoglobin 10.5 g/dl (12.0-15.0); Mean Corp Hgb Conc 31.8 g/gl (32-36); Mean Corpuscular Hgb 28.5 pg (27.0-32.0); Mean Corpuscular Volume 89.7 fL (81-99); Mean Platelet Vol. 10.5 fl (6.2-12.0); Platelet Count 104 K/mm3 (150-450); RBC Distribution Width CV 14.5 % (11.6-14.6); RBC Distribution Width SD 47.2 fl (35.1-43.9); Red Blood Count 3.68 M/mm3 (4.2-5.4); White Blood Count 4.1 K/mm3 (4.4-11.0)
[2018-05-05 08:57] LABS: Scan Indicated on CBC? Y/N NO
== END 2018-05-05 08:00 | disposition home or self-care (01) ==
LOC: LAB 07:03
PROVIDERS: Family Provider Internal Medicine; PCP Internal Medicine; Referring Provider Nurse Practitioner Acute Care; Visit Provider Nurse Practitioner Acute Care
DX: G70.00 Myasthenia gravis without (acute) exacerbation (principal); Z51.81 Encounter for therapeutic drug level monitoring
CPT/HCPCS: 36415; 85027

== ENCOUNTER 2018-06-02 06:55 | Outpatient (RCR) | payer MEDICARE, SELFPAY ==
[2018-06-02 08:18] LABS: Hematocrit 33.5 % (37-47); Hemoglobin 10.8 g/dl (12.0-15.0); Mean Corp Hgb Conc 32.2 g/gl (32-36); Mean Corpuscular Volume 89.8 fL (81-99); Mean Platelet Vol. 10.9 fl (6.2-12.0); Platelet Count 107 K/mm3 (150-450); RBC Distribution Width CV 14.5 % (11.6-14.6); RBC Distribution Width SD 46.6 fl (35.1-43.9); Red Blood Count 3.73 M/mm3 (4.2-5.4); White Blood Count 5.3 K/mm3 (4.4-11.0)
[2018-06-02 08:19] LABS: Scan Indicated on CBC? Y/N NO
[2018-06-30 08:02] LABS: Hemoglobin 10.9 g/dl (12.0-15.0); Mean Corp Hgb Conc 32.1 g/gl (32-36); Mean Corpuscular Hgb 28.3 pg (27.0-32.0); Mean Corpuscular Volume 88.3 fL (81-99); Mean Platelet Vol. 10.9 fl (6.2-12.0); Platelet Count 124 K/mm3 (150-450); RBC Distribution Width CV 14.3 % (11.6-14.6); RBC Distribution Width SD 44.9 fl (35.1-43.9); Red Blood Count 3.85 M/mm3 (4.2-5.4); White Blood Count 5.4 K/mm3 (4.4-11.0)
[2018-06-30 08:10] LABS: Scan Indicated on CBC? Y/N NO
== END 2018-06-02 07:55 | disposition home or self-care (01) ==
LOC: LAB 06:55
PROVIDERS: Family Provider Internal Medicine; PCP Internal Medicine; Referring Provider Nurse Practitioner Acute Care; Visit Provider Nurse Practitioner Acute Care
DX: G70.00 Myasthenia gravis without (acute) exacerbation (principal); Z51.81 Encounter for therapeutic drug level monitoring
CPT/HCPCS: 36415; 85027

== ENCOUNTER 2018-06-30 07:00 | Outpatient (RCR) | payer MEDICARE, SELFPAY | END 2018-07-05 13:50 | disposition home or self-care (01) | LOC: LAB 07:00 | PROVIDERS: Family Provider Internal Medicine; PCP Internal Medicine; Referring Provider Nurse Practitioner Acute Care; Visit Provider Nurse Practitioner Acute Care | DX: G70.00 Myasthenia gravis without (acute) exacerbation (principal); Z51.81 Encounter for therapeutic drug level monitoring ==

== ENCOUNTER 2018-08-04 07:02 | Outpatient (RCR) | payer MEDICARE, SELFPAY ==
[2018-08-04 07:56] LABS: Hematocrit 31.4 % (37-47); Hemoglobin 10.3 g/dl (12.0-15.0); Mean Corp Hgb Conc 32.8 g/gl (32-36); Mean Corpuscular Hgb 28.3 pg (27.0-32.0); Mean Corpuscular Volume 86.3 fL (81-99); Mean Platelet Vol. 10.5 fl (6.2-12.0); Platelet Count 111 K/mm3 (150-450); RBC Distribution Width CV 14.8 % (11.6-14.6); RBC Distribution Width SD 46.5 fl (35.1-43.9); Red Blood Count 3.64 M/mm3 (4.2-5.4); White Blood Count 4.6 K/mm3 (4.4-11.0)
[2018-08-04 07:57] LABS: Scan Indicated on CBC? Y/N NO
== END 2018-08-04 08:00 | disposition home or self-care (01) ==
LOC: LAB 07:02
PROVIDERS: Family Provider Internal Medicine; PCP Internal Medicine; Referring Provider Nurse Practitioner Acute Care; Visit Provider Nurse Practitioner Acute Care
DX: G70.00 Myasthenia gravis without (acute) exacerbation (principal); Z51.81 Encounter for therapeutic drug level monitoring
CPT/HCPCS: 36415; 85027

== ENCOUNTER 2018-08-04 13:16 | Emergency (ER) | payer MEDICARE, SELFPAY ==
[2018-08-04 13:18] VITALS: BP 170/67; PULSE 65; PULSE 69; RESP 17; TEMP 37.4; O2SAT 95; O2SAT 96; BMI 46.6
--- NOTE | 2018-08-04 14:25 | EKG12_ITS ---
Test Reason : WEAKNESS Blood Pressure : / mmHG Vent. Rate : 064 BPM Atrial Rate : 064 BPM P-R Int : 228 ms QRS Dur : 080 ms QT Int : 378 ms P-R-T Axes : -13 046 013 degrees QTc Int : 389 ms Sinus rhythm with 1st degree A-V block Low voltage QRS Borderline ECG Confirmed by SAMMY SHERWOOD, ANIYA ([id number]), acquisitions editor DORIAN JACKSON ([id number]) on 08/07/2018 1:09:55 PM Referred By: NELLI Confirmed By:ANIYA CHRISTIANSON MD
[2018-08-04 14:38] LABS: Mucous, Urine 0 SEEN /hpf (<or=2+); Red Blood Cells-Urine 0 SEEN /hpf (0-5); Squamous Epithelial Cells - UA 0 SEEN /hpf (5-10)
[2018-08-04 14:43] LABS: Color, Urine Yellow (Yellow); Glucose, Dipstick Normal (Normal); Ketone-Dipstick Negative (Negative); Leukocyte Esterase-Dipstick 25 /ul (Negative); Nitrite-Dipstick Negative (Negative); Occult Blood-Urine Negative /ul (Negative); Protein-Dipstick Negative (Negative); Urine Bilirubin Dipstick Negative (Negative); Urine Clarity Clear (Clear); Urine Urobilinogen Normal (Normal)
[2018-08-04 14:50] LABS: Bacteria 1+ /hpf (None Seen); White Blood Cells 0-5 SEEN /hpf (0-5)
--- NOTE | 2018-08-04 14:50 | RAD_ITS ---
STUDY: X-RAY CHEST REASON FOR EXAM: Female, 78 years old. Shortness of breath TECHNIQUE: AP COMPARISON: 09/24/2017 FINDINGS: EKG leads project over the chest. The lungs are clear and expanded. There is no demonstrated pleural abnormality. There is mild cardiac enlargement. Normal mediastinum and adriana. Normal visualized pulmonary arteries. Normal visualized aortic arch and descending thoracic aorta. No acute bony process. There is no demonstrated abnormality of the visualized soft tissue structures of the upper abdomen. RAD/Chest 1 View (Portable) IMPRESSION: Stable, nonacute portable x-ray examination of the chest. Electronically Signed: Carlos Srinivasan MD at 15:07 EDT , Service support ,
[2018-08-04] MEDS: 0.9% Normal Saline 1,000 ML 150 ML IV (14:55)
[2018-08-04 15:07] LABS: Absolute Lymphocyte Count 0.43 X10^3/ul (0.83-4.51); Absolute Neutrophil Count 3.6 X10^3/uL (2.0-7.7); Basophil# 0.02 X10^3/uL; Basophil% 0.4 % (0-1); Differential Indicated SCAN CRITERIA MET; Eosinophil# 0.11 X10^3/uL; Eosinophils% 2.5 % (0-5); Hematocrit 32.4 % (37-47); Hemoglobin 10.5 g/dl (12.0-15.0); Lymphocyte # 0.43 X10^3/ul (4.0); Lymphocyte % 9.6 % (19-41); Mean Corp Hgb Conc 32.4 g/gl (32-36); Mean Corpuscular Hgb 28.1 pg (27.0-32.0); Mean Corpuscular Volume 86.6 fL (81-99); Mean Platelet Vol. 11.1 fl (6.2-12.0); Monocyte# 0.35 X10^3/uL; Monocyte% 7.8 % (0-10); Neutrophil # 3.55 X10^3/uL (2.7-7.7); Neutrophil % 79.7 % (47-70); POSITIVE COUNT NO; POSITIVE DIFFERENTIAL YES; POSITIVE MORPHOLOGY NO; Platelet Count 104 K/mm3 (150-450); RBC Distribution Width CV 14.9 % (11.6-14.6); Red Blood Count 3.74 M/mm3 (4.2-5.4); White Blood Count 4.5 K/mm3 (4.4-11.0)
[2018-08-04 15:21] LABS: Anion Gap 6 (5-15); BUN 22 mg/dL (7-18); BUN/Creat Ratio 18.6 RATIO (10-20); Calcium,Total 9.2 mg/dL (8.5-10.1); Chloride 103 mmol/L (98-107); Creatinine, Serum 1.18 mg/dL (0.55-1.02); EST Glomerular Filtration Rate 47 mL/min (>60); Est Glom Filt Rate - Afr Amer 57 mL/min (>60); Estimated Creatinine Clearance 30.61 ml/min; Glucose 178 mg/dL (74-106); Potassium 4.3 mmol/L (3.5-5.1); Sodium Level 134 mmol/L (136-145)
[2018-08-04 15:35] LABS: Anisocytosis 1+; Differential Comment SCANNED; Platelet Estimate SLT DEC (ADEQ)
[2018-08-04 15:54] VITALS: BP 163/71; PULSE 64; RESP 17; O2SAT 95
--- NOTE | 2018-08-04 17:39 | ED.VISSUMM ---
- ER Visit Summary Date of Service: 08/04/18 Chief Complaint: Weakness, short of breath History of Present Illness: The patient is a 78 F with weakness over the past several days. Today she had a near fall. She reported shortness of breath with exertion. She was seen by Dr. Green this week and had blood work drawn. She received a phone call that she is to come in next Monday for a ferritin and iron infusion. Patient was not sure if her levels might be too low and that is why she worsened today. Physical Examination: Blood pressure is 170/67, temperature 99.4, heart rate 65, respiratory rate 17, pulse ox 96% on room air. Patient sitting upright in bed no acute distress. Head neck examination normal. Heart is regular rate and rhythm. Lung sounds are clear. Abdomen is soft and nontender. Neuro exam reveals no focal deficits. Test Results: EKG is sinus at 64 with no acute ischemia. CBC was a hemoglobin of 10.5. I did review her last hemoglobin from [facility] at 10.3. Chemistry studies reveal a sodium of 134. Glucose is 178. BUN is 22 and creatinine is 1.18. Urinalysis shows no acute infection. Troponin is less than 0.015. Emergency Department Course and Treatment: Patient was given IV fluids while here. She embolized to the restroom multiple times without difficulty and feels steady on her feet. I do not think there is anything to gain by admitting her to the hospital this point. She can follow-up Monday for her ferritin infusion. Treatment Plan: [] Disposition: Discharge Impression: Mild weakness, uncertain etiology This note was generated with [employer] dictation software. It may contain incorrect words, spelling, and punctuation that were not noted in review of the chart prior to signing ED Disposition - Plan for ED Patient: Referrals: Hector Del Cid MD [Primary Care Provider] -
--- NOTE | 2018-08-04 17:41 | ED.DEP ---
ED Disposition - Plan for ED Patient: Disposition: Home or Assisted Living Instructions: ED Weakness [facility] Referrals: Hector Del Cid MD [Primary Care Provider] - Additional Instructions: Follow-up on Monday for your iron infusion as scheduled.
[2018-08-04 18:04] VITALS: BP 167/73; PULSE 62; RESP 18; O2SAT 96
== END 2018-08-04 18:07 | disposition home or self-care (01) ==
PROVIDERS: Emergency Provider Emergency Medicine; Family Provider Internal Medicine; PCP Internal Medicine
DX: R53.1 Weakness (principal); R06.02 Shortness of breath; I12.9 Hypertensive chronic kidney disease with stage 1 through stage 4 chronic kidney disease, or unspecified chronic kidney disease; E11.22 Type 2 diabetes mellitus with diabetic chronic kidney disease; N18.9 Chronic kidney disease, unspecified; G70.00 Myasthenia gravis without (acute) exacerbation; Z79.82 Long term (current) use of aspirin; Z79.4 Long term (current) use of insulin; Z79.84 Long term (current) use of oral hypoglycemic drugs; Z51.81 Encounter for therapeutic drug level monitoring; Z79.899 Other long term (current) drug therapy
CPT/HCPCS: 36415; 71045; 80048; 81001; 84484; 85025; 85027; 86850; 86900; 93005; 99285; A4216

== ENCOUNTER → 2018-08-16 14:56 | Outpatient (CLI) | payer MEDICARE, SELFPAY ==
[2018-08-04 13:18] VITALS: BMI 46.6
[2018-08-16 17:24] LABS: Thyroid Stim Hormone (TSH) 1.31 uIU/mL (0.358-3.74)
== END ==
PROVIDERS: Family Provider Internal Medicine; PCP Internal Medicine
DX: E04.1 Nontoxic single thyroid nodule (principal); E04.9 Nontoxic goiter, unspecified
CPT/HCPCS: 36415; 84443

== ENCOUNTER 2018-09-01 07:05 | Outpatient (RCR) | payer MEDICARE, SELFPAY ==
[2018-09-01 07:57] LABS: Absolute Neutrophil Count 3.5 X10^3/uL (2.0-7.7); Basophil# 0.01 X10^3/uL; Basophil% 0.2 % (0-1); Eosinophil# 0.11 X10^3/uL; Eosinophils% 2.2 % (0-5); Hematocrit 34.1 % (37-47); Hemoglobin 11.1 g/dl (12.0-15.0); Lymphocyte % 16.2 % (19-41); Mean Corp Hgb Conc 32.6 g/gl (32-36); Mean Corpuscular Hgb 29.2 pg (27.0-32.0); Mean Corpuscular Volume 89.7 fL (81-99); Mean Platelet Vol. 10.4 fl (6.2-12.0); Monocyte# 0.53 X10^3/uL; Monocyte% 10.7 % (0-10); Neutrophil # 3.48 X10^3/uL (2.7-7.7); Neutrophil % 70.5 % (47-70); Platelet Count 98 K/mm3 (150-450); RBC Distribution Width CV 17.3 % (11.6-14.6); RBC Distribution Width SD 56.7 fl (35.1-43.9); White Blood Count 4.9 K/mm3 (4.4-11.0)
[2018-09-01 08:03] LABS: POSITIVE COUNT NO; POSITIVE DIFFERENTIAL NO; POSITIVE MORPHOLOGY NO
== END 2018-09-04 16:00 | disposition home or self-care (01) ==
LOC: LAB 07:05
PROVIDERS: Family Provider Internal Medicine; PCP Internal Medicine; Referring Provider Nurse Practitioner Acute Care; Visit Provider Nurse Practitioner Acute Care
DX: G70.00 Myasthenia gravis without (acute) exacerbation (principal); Z51.81 Encounter for therapeutic drug level monitoring
CPT/HCPCS: 36415; 85025

== ENCOUNTER → 2018-09-12 13:20 | Outpatient (CLI) | payer MEDICARE, SELFPAY ==
[2018-09-12 14:09] LABS: Ferritin 621 ng/mL (8-252); Iron Binding Capacity,Total 295 ug/dL (250-450)
== END ==
PROVIDERS: Family Provider Internal Medicine; PCP Internal Medicine; Referring Provider Internal Medicine Hematology & Oncology; Visit Provider Internal Medicine Hematology & Oncology
DX: D64.9 Anemia, unspecified (principal)
CPT/HCPCS: 82728; 83550

== ENCOUNTER 2018-09-29 07:00 | Outpatient (RCR) | payer MEDICARE, SELFPAY ==
[2018-09-29 08:09] LABS: Hematocrit 34.3 % (37-47); Hemoglobin 11.4 g/dl (12.0-15.0); Mean Corp Hgb Conc 33.2 g/gl (32-36); Mean Corpuscular Volume 90.3 fL (81-99); Platelet Count 100 K/mm3 (150-450); RBC Distribution Width CV 15.8 % (11.6-14.6); RBC Distribution Width SD 51.4 fl (35.1-43.9); White Blood Count 5.2 K/mm3 (4.4-11.0)
[2018-09-29 08:11] LABS: Scan Indicated on CBC? Y/N NO
== END 2018-09-29 08:00 | disposition home or self-care (01) ==
LOC: LAB 07:00
PROVIDERS: Family Provider Internal Medicine; PCP Internal Medicine; Referring Provider Nurse Practitioner Acute Care; Visit Provider Nurse Practitioner Acute Care
DX: G70.00 Myasthenia gravis without (acute) exacerbation (principal); Z51.81 Encounter for therapeutic drug level monitoring
CPT/HCPCS: 36415; 85027

== ENCOUNTER 2018-11-03 07:02 | Outpatient (RCR) | payer MEDICARE, SELFPAY ==
[2018-11-03 07:47] LABS: Hematocrit 32.9 % (37-47); Hemoglobin 11.2 g/dl (12.0-15.0); Mean Corpuscular Volume 91.1 fL (81-99); Mean Platelet Vol. 10.4 fl (6.2-12.0); Platelet Count 90 K/mm3 (150-450); RBC Distribution Width CV 14.3 % (11.6-14.6); Red Blood Count 3.61 M/mm3 (4.2-5.4); Scan Indicated on CBC? Y/N NO; White Blood Count 5.6 K/mm3 (4.4-11.0)
== END 2018-11-03 08:00 | disposition home or self-care (01) ==
LOC: LAB 07:02
PROVIDERS: Family Provider Internal Medicine; PCP Internal Medicine; Referring Provider Nurse Practitioner Acute Care; Visit Provider Nurse Practitioner Acute Care
DX: G70.00 Myasthenia gravis without (acute) exacerbation (principal); Z79.899 Other long term (current) drug therapy
CPT/HCPCS: 36415; 85027

== ENCOUNTER 2018-12-01 07:02 | Outpatient (RCR) | payer MEDICARE, SELFPAY ==
[2018-11-21 12:32] VITALS: BMI 46.8
[2018-12-01 08:19] LABS: Hematocrit 33.1 % (37-47); Hemoglobin 11.2 g/dL (12.0-15.0); Mean Corp Hgb Conc 33.8 g/dL (32-36); Mean Corpuscular Hgb 31.6 pg (27.0-32.0); Mean Corpuscular Volume 93.5 fL (81-99); Mean Platelet Vol. 10.7 fl (6.2-12.0); Platelet Count 105 K/mm3 (150-450); RBC Distribution Width CV 13.4 % (11.6-14.6); RBC Distribution Width SD 45.7 fl (35.1-43.9); Red Blood Count 3.54 M/mm3 (4.2-5.4); White Blood Count 4.7 K/mm3 (4.4-11.0)
== END 2018-12-05 16:00 | disposition home or self-care (01) ==
LOC: LAB 07:02
PROVIDERS: Family Provider Internal Medicine; PCP Internal Medicine; Referring Provider Nurse Practitioner Acute Care; Visit Provider Nurse Practitioner Acute Care
DX: G70.00 Myasthenia gravis without (acute) exacerbation (principal); Z79.899 Other long term (current) drug therapy
CPT/HCPCS: 36415; 85027

== ENCOUNTER → 2018-12-24 15:15 | Outpatient (CLI) | payer MEDICARE, SELFPAY ==
[2018-11-21 12:32] VITALS: BMI 46.8
[2018-12-24 16:10] LABS: Ferritin 443 ng/mL (8-252); Iron 67 ug/dL (50-170); Iron Binding Capacity,Total 311 ug/dL (250-450); PERCENT IRON SATURATION 21.5 % (15.0-55.0)
== END ==
PROVIDERS: Family Provider Internal Medicine; PCP Internal Medicine; Referring Provider Internal Medicine Hematology & Oncology; Visit Provider Internal Medicine Hematology & Oncology
DX: N18.3 Chronic kidney disease, stage 3 (moderate) (principal); D63.1 Anemia in chronic kidney disease
CPT/HCPCS: 82728; 83540; 83550

== ENCOUNTER 2019-01-05 07:05 | Outpatient (RCR) | payer MEDICARE, SELFPAY ==
[2018-11-21 12:32] VITALS: BMI 46.8
[2019-01-05 08:09] LABS: Hematocrit 34.8 % (37-47); Hemoglobin 11.4 g/dL (12.0-15.0); Mean Corp Hgb Conc 32.8 g/dL (32-36); Mean Corpuscular Hgb 30.6 pg (27.0-32.0); Mean Corpuscular Volume 93.5 fL (81-99); Mean Platelet Vol. 10.8 fl (6.2-12.0); Platelet Count 102 K/mm3 (150-450); RBC Distribution Width CV 13.2 % (11.6-14.6); RBC Distribution Width SD 44.9 fl (35.1-43.9); Red Blood Count 3.72 M/mm3 (4.2-5.4); Scan Indicated on CBC? Y/N NO; White Blood Count 5.3 K/mm3 (4.4-11.0)
== END 2019-01-05 18:00 | disposition home or self-care (01) ==
LOC: LAB 07:05
PROVIDERS: Family Provider Internal Medicine; PCP Internal Medicine; Referring Provider Nurse Practitioner Acute Care; Visit Provider Nurse Practitioner Acute Care
DX: G70.00 Myasthenia gravis without (acute) exacerbation (principal); Z79.899 Other long term (current) drug therapy
CPT/HCPCS: 36415; 85027

== ENCOUNTER 2019-02-02 07:09 | Outpatient (RCR) | payer MEDICARE, SELFPAY ==
[2018-11-21 12:32] VITALS: BMI 46.8
[2019-02-02 08:07] LABS: Hematocrit 33.8 % (37-47); Hemoglobin 11.1 g/dL (12.0-15.0); Mean Corp Hgb Conc 32.8 g/dL (32-36); Mean Corpuscular Hgb 30.2 pg (27.0-32.0); Mean Corpuscular Volume 91.8 fL (81-99); Mean Platelet Vol. 10.8 fl (6.2-12.0); Platelet Count 104 K/mm3 (150-450); RBC Distribution Width CV 13.1 % (11.6-14.6); RBC Distribution Width SD 43.5 fl (35.1-43.9); Red Blood Count 3.68 M/mm3 (4.2-5.4); White Blood Count 4.9 K/mm3 (4.4-11.0)
== END 2019-02-02 16:00 | disposition home or self-care (01) ==
LOC: LAB 07:09
PROVIDERS: Family Provider Internal Medicine; PCP Internal Medicine; Referring Provider Nurse Practitioner Acute Care; Visit Provider Nurse Practitioner Acute Care
DX: G70.00 Myasthenia gravis without (acute) exacerbation (principal); Z79.899 Other long term (current) drug therapy
CPT/HCPCS: 36415; 85027

== ENCOUNTER → 2019-03-22 06:32 | Outpatient (CLI) | payer MEDICARE, SELFPAY ==
[2018-11-21 12:32] VITALS: BMI 46.8
[2019-03-22 07:24] LABS: Cholesterol 144 mg/dL (200); High Density Lipoprotein 73 mg/dL; Triglycerides 135 mg/dL; Very Low Density Lipoprotein 27 mg/dL (5-40)
== END ==
LOC: LAB.FUTURE 06:34 → LAB 06:40
PROVIDERS: Family Provider Internal Medicine; PCP Internal Medicine; Referring Provider Internal Medicine; Visit Provider Internal Medicine
DX: E11.42 Type 2 diabetes mellitus with diabetic polyneuropathy (principal); E78.5 Hyperlipidemia, unspecified
CPT/HCPCS: 36415; 80061; 83036

== ENCOUNTER → 2019-03-25 16:39 | Outpatient (CLI) | payer MEDICARE, SELFPAY ==
[2018-11-21 12:32] VITALS: BMI 46.8
[2019-03-25 18:01] LABS: Microalbumin,Random Urine 7.3 mg/L (NO RANGE EST.); Microalbumin:Creatinine Ratio 20.2 mg/g CRE (<30 mg/g CRE)
== END ==
PROVIDERS: Family Provider Internal Medicine; PCP Internal Medicine; Referring Provider Internal Medicine; Visit Provider Internal Medicine
DX: E11.42 Type 2 diabetes mellitus with diabetic polyneuropathy (principal)
CPT/HCPCS: 82043; 82570

== ENCOUNTER → 2019-06-20 15:05 | Outpatient (CLI) | payer MEDICARE, SELFPAY ==
[2018-11-21 12:32] VITALS: BMI 46.8
[2019-06-20 16:08] LABS: Anion Gap 6 (5-15); BUN 36 mg/dL (7-18); BUN/Creat Ratio 32.4 RATIO (10-20); Calcium,Total 10.1 mg/dL (8.5-10.1); Chloride 100 mmol/L (98-107); Creatinine, Serum 1.11 mg/dL (0.55-1.02); EST Glomerular Filtration Rate 51 mL/min (>60); Est Glom Filt Rate - Afr Amer 61 mL/min (>60); Glucose 117 mg/dL (74-106); Potassium 4.5 mmol/L (3.5-5.1); Sodium Level 130 mmol/L (136-145)
== END ==
PROVIDERS: PCP Internal Medicine; Referring Provider Internal Medicine; Visit Provider Internal Medicine
DX: I10 Essential (primary) hypertension (principal)
CPT/HCPCS: 36415; 80048

== ENCOUNTER → 2019-07-08 13:24 | Outpatient (CLI) | payer MEDICARE, SELFPAY ==
[2018-11-21 12:32] VITALS: BMI 46.8
[2019-07-08 14:10] LABS: Ferritin 465 ng/mL (8-252); Iron Binding Capacity,Total 320 ug/dL (250-450)
[2019-07-09 11:34] LABS: Iron 66 ug/dL (50-170)
== END ==
PROVIDERS: PCP Internal Medicine; Referring Provider Internal Medicine Hematology & Oncology; Visit Provider Internal Medicine Hematology & Oncology
DX: D69.59 Other secondary thrombocytopenia (principal); D63.8 Anemia in other chronic diseases classified elsewhere
CPT/HCPCS: 82728; 83540; 83550

== ENCOUNTER → 2020-02-08 06:54 | Outpatient (CLI) | payer MEDICARE, SELFPAY ==
[2019-11-26 14:36] VITALS: BMI 45.3
[2020-02-08 07:51] LABS: Absolute Lymphocyte Count 0.81 X10^3/uL (0.83-4.51); Absolute Neutrophil Count 5.2 X10^3/uL (2.0-7.7); Basophil# 0.03 X10^3/uL; Basophil% 0.4 % (0-1); Eosinophil# 0.18 X10^3/uL; Eosinophils% 2.6 % (0-5); Hematocrit 33.2 % (37-47); Hemoglobin 11.1 g/dL (12.0-15.0); Lymphocyte # 0.81 X10^3/ul (4.0); Lymphocyte % 11.7 % (19-41); Mean Corp Hgb Conc 33.4 g/dL (32-36); Mean Corpuscular Hgb 29.3 pg (27.0-32.0); Mean Corpuscular Volume 87.6 fL (81-99); Mean Platelet Vol. 11.1 fl (6.2-12.0); Monocyte# 0.65 X10^3/uL; Monocyte% 9.4 % (0-10); NRBC Flagged by Analyzer 0 % (0-5); Neutrophil % 75.5 % (47-70); Platelet Count 141 K/mm3 (150-450); RBC Distribution Width CV 14.2 % (11.6-14.6); RBC Distribution Width SD 44.9 fl (35.1-43.9); Red Blood Count 3.79 M/mm3 (4.2-5.4); White Blood Count 6.9 K/mm3 (4.4-11.0)
[2020-02-08 08:21] LABS: Anion Gap 6 (5-15); BUN 25 mg/dL (7-18); BUN/Creat Ratio 23.1 RATIO (10-20); Calcium,Total 9.2 mg/dL (8.5-10.1); Chloride 95 mmol/L (98-107); Cholesterol 138 mg/dL (200); Creatinine, Serum 1.08 mg/dL (0.55-1.02); EST Glomerular Filtration Rate 52 mL/min (>60); Est Glom Filt Rate - Afr Amer 63 mL/min (>60); Ferritin 356 ng/mL (8-252); Glucose 138 mg/dL (74-106); High Density Lipoprotein 74 mg/dL; Iron 60 ug/dL (50-170); Iron Binding Capacity,Total 327 ug/dL (250-450); PERCENT IRON SATURATION 18.3 % (15.0-55.0); Potassium 4.7 mmol/L (3.5-5.1); Sodium Level 127 mmol/L (136-145); Triglycerides 120 mg/dL; Very Low Density Lipoprotein 24 mg/dL (5-40)
[2020-02-08 14:40] LABS: Hemoglobin A1c 5.6 % (3.8-5.6)
[2020-02-12 09:39] LABS: Vitamin B12 1350 pg/mL (211-911)
== END ==
PROVIDERS: PCP Internal Medicine; Referring Provider Internal Medicine; Visit Provider Internal Medicine
DX: E11.22 Type 2 diabetes mellitus with diabetic chronic kidney disease (principal); N18.30 Chronic kidney disease, stage 3 unspecified; D63.1 Anemia in chronic kidney disease; E11.42 Type 2 diabetes mellitus with diabetic polyneuropathy
CPT/HCPCS: 36415; 80048; 80061; 82607; 82728; 83036; 83540; 83550; 85025

== ENCOUNTER → 2020-03-21 06:55 | Outpatient (CLI) | payer MEDICARE, SELFPAY ==
[2019-11-26 14:36] VITALS: BMI 45.3
[2020-03-21 07:56] LABS: Absolute Lymphocyte Count 0.72 X10^3/uL (0.83-4.51); Absolute Neutrophil Count 5.1 X10^3/uL (2.0-7.7); Basophil# 0.03 X10^3/uL; Basophil% 0.4 % (0-1); Eosinophil# 0.18 X10^3/uL; Eosinophils% 2.7 % (0-5); Hematocrit 32.8 % (37-47); Hemoglobin 10.6 g/dL (12.0-15.0); Lymphocyte # 0.72 X10^3/ul (4.0); Lymphocyte % 10.7 % (19-41); Mean Corp Hgb Conc 32.3 g/dL (32-36); Mean Corpuscular Hgb 29.1 pg (27.0-32.0); Mean Corpuscular Volume 90.1 fL (81-99); Monocyte# 0.63 X10^3/uL; Monocyte% 9.4 % (0-10); NRBC Flagged by Analyzer 0 % (0-5); Neutrophil # 5.12 X10^3/uL (2.7-7.7); Neutrophil % 76.2 % (47-70); Platelet Count 125 K/mm3 (150-450); RBC Distribution Width SD 46.2 fl (35.1-43.9); Red Blood Count 3.64 M/mm3 (4.2-5.4); White Blood Count 6.7 K/mm3 (4.4-11.0)
[2020-03-21 08:33] LABS: Anion Gap 10 (5-15); BUN 23 mg/dL (7-18); BUN/Creat Ratio 24.8 RATIO (10-20); Calcium,Total 8.9 mg/dL (8.5-10.1); Chloride 96 mmol/L (98-107); Creatinine, Serum 0.93 mg/dL (0.55-1.02); EST Glomerular Filtration Rate 62 mL/min (>60); Est Glom Filt Rate - Afr Amer 75 mL/min (>60); Glucose 148 mg/dL (74-106); Potassium 4.2 mmol/L (3.5-5.1); Sodium Level 127 mmol/L (136-145)
[2020-03-21 08:39] LABS: Microalbumin,Random Urine 17.8 mg/L (NO RANGE EST.); Microalbumin:Creatinine Ratio 19.6 mg/g CRE (<30 mg/g CRE)
[2020-03-23 09:15] LABS: Vitamin B12 713 pg/mL (211-911)
== END ==
PROVIDERS: PCP Internal Medicine; Referring Provider Internal Medicine; Visit Provider Internal Medicine
DX: E11.42 Type 2 diabetes mellitus with diabetic polyneuropathy (principal); E87.1 Hypo-osmolality and hyponatremia
CPT/HCPCS: 36415; 80048; 82043; 82570; 82607; 83036; 85025

== ENCOUNTER → 2020-04-09 06:52 | Outpatient (CLI) | payer MEDICARE, SELFPAY ==
[2019-11-26 14:36] VITALS: BMI 45.3
[2020-04-09 07:43] LABS: Anion Gap 6 (5-15); BUN 52 mg/dL (7-18); BUN/Creat Ratio 39.1 RATIO (10-20); Calcium,Total 9.7 mg/dL (8.5-10.1); Chloride 108 mmol/L (98-107); Creatinine, Serum 1.33 mg/dL (0.55-1.02); EST Glomerular Filtration Rate 41 mL/min (>60); Est Glom Filt Rate - Afr Amer 50 mL/min (>60); Glucose 186 mg/dL (74-106); Potassium 4.4 mmol/L (3.5-5.1); Sodium Level 140 mmol/L (136-145)
== END ==
PROVIDERS: PCP Internal Medicine; Referring Provider Internal Medicine; Visit Provider Internal Medicine
DX: E87.1 Hypo-osmolality and hyponatremia (principal)
CPT/HCPCS: 36415; 80048

== ENCOUNTER → 2020-05-16 06:54 | Outpatient (CLI) | payer MEDICARE, SELFPAY ==
[2019-11-26 14:36] VITALS: BMI 45.3
[2020-05-16 07:54] LABS: Anion Gap 7 (5-15); BUN 33 mg/dL (7-18); BUN/Creat Ratio 30.8 RATIO (10-20); Calcium,Total 9.1 mg/dL (8.5-10.1); Chloride 108 mmol/L (98-107); Creatinine, Serum 1.07 mg/dL (0.55-1.02); EST Glomerular Filtration Rate 53 mL/min (>60); Est Glom Filt Rate - Afr Amer 64 mL/min (>60); Glucose 152 mg/dL (74-106); Potassium 4.2 mmol/L (3.5-5.1); Sodium Level 137 mmol/L (136-145)
== END ==
PROVIDERS: PCP Internal Medicine; Referring Provider Internal Medicine; Visit Provider Internal Medicine
DX: N18.30 Chronic kidney disease, stage 3 unspecified (principal)
CPT/HCPCS: 36415; 80048

== ENCOUNTER → 2020-07-25 06:57 | Outpatient (CLI) | payer MEDICARE, SELFPAY ==
[2019-11-26 14:36] VITALS: BMI 45.3
[2020-07-25 08:02] LABS: Cholesterol 156 mg/dL (200); High Density Lipoprotein 67 mg/dL; Triglycerides 122 mg/dL; Very Low Density Lipoprotein 24 mg/dL (5-40)
== END ==
PROVIDERS: PCP Internal Medicine; Referring Provider Internal Medicine; Visit Provider Internal Medicine
DX: E78.5 Hyperlipidemia, unspecified (principal)
CPT/HCPCS: 36415; 80061

== ENCOUNTER 2020-09-02 07:17 | Day surgery (SDC) | payer MEDICARE, SELFPAY ==
[2019-11-26 14:36] VITALS: BMI 45.3
--- NOTE | 2020-08-29 19:15 | HP.PCM_ITS ---
History and Physical Date of Admission: 09/02/20 HISTORY AND PHYSICAL ? Griselda Mcneil 1940 ? REFERRING PHYSICIAN: Hector Del Cid MD ? CHIEF COMPLAINT: Consult ? HPI: The patient is a 80 year old female referred for endoscopy. Patient was evaluated by me previously. Per my note from 07/08/2019: ? ?Griselda notes personal history of colon polyps and previously underwent ileocolectomy for a large cecal polyp in 2015. ?She notes no colon complaints currently. Patient denies any change in bowel habits, weight changes, blood in stools, black tarry stools or abdominal pain.??Denies?family history of colon issues. ? Patient's past medical history is significant for type iI diabetes mellitus, myasthenia gravis, hypertension, obstructive sleep apnea, anemia associated with chronic kidney disease, arrhythmia. ? ? Most recent colonoscopy was performed 07/13/[address] Edgar under [facility] with no concerning findings at that time, 3 year follow-up recommended.? ? Griselda notes no new colon complaints. She states she has chronic loose stools ever since her colon resection, which was bee worsened with taking metformin and cellcept. ? Patient NOTES abdominal bloating and history of NSAID use, denies having recent EGD. ? Patient's past medical history is sinificant for myasthenia gravis, type II diabetes mellitus, chronic kidney disease, obstructive sleep apnea, atrial arrhythmia, anemia, thrombocytopenia, hypertensive heart disease. ? PAST MEDICAL HISTORY PAST MEDICAL HISTORY Diagnosis Date ? Achilles bursitis or tendinitis 06/23/2009 ? Anemia due to stage 3 chronic kidney disease (HCC) 10/25/2017 ? Anemia of chronic disease 06/22/2011 ? Arrhythmia ? ? Arthropathy, unspecified, site unspecified ? ? Atrial arrhythmia 06/24/2015 ? Calcaneal spur 06/25/2009 ? Diffuse cystic mastopathy ? ? Diverticulosis of colon (without mention of hemorrhage) ? ? Essential hypertension, benign ? ? Hypertensive heart disease without heart failure 01/01/2015 ? Internal hemorrhoids without mention of complication ? ? Lymphedema of leg 04/18/2012 ? Myasthenia gravis (HCC) 09/03/2014 ? 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 CHUN (obstructive sleep apnea) 12/26/2011 ? CHUN on CPAP ? ? Other and unspecified hyperlipidemia ? ? Other vitamin B12 deficiency anemia 01/06/2015 ? PMH - PAST MEDICAL HISTORY OF ? ? pt states RA in history ? Postoperative anemia due to acute blood loss 06/13/2014 ? Postoperative ileus (HCC) 06/18/2014 ? Thrombocytopenia, secondary 02/01/2018 ? Tubulovillous adenoma of colon 03/13/2014 ? Type II or unspecified type diabetes mellitus without mention of complication, uncontrolled ? ? ? PAST SURGICAL HISTORY PAST SURGICAL HISTORY Procedure Laterality Date ? BONE MARROW ASPIRATE &BIOPSY ? 10/17/2014 ? BX BREAST PERC NEED W/GUID Right 09/26/2011 ? U/S needle core outer mid right breast ? BX OF BREAST; INCISIONAL Right 1991 ? Bx of breast, incisional right ? COLONOSCOP W/ OR W/O BRSH SPEC ? 07/2003 ? Colonoscopy ? COLONOSCOP W/ OR W/O BRSH SPEC ? 03/13/2014 ? Colonoscopy ? COLONOSCOP W/ OR W/O BRSH SPEC ? 06/29/15 ? Colonoscopy ? COLONOSCOP W/ OR W/O BRSH SPEC N/A 07/13/2016 ? MAC ? EYE SURGERY HX ? ? ? FNA (FINE NEEDLE ASPIRATION) Left 11/28/2014 ? thyroid nodule. Benign follicular nodule, abundant colloid. [facility] ? PART REMOVAL COLON W ANASTOMOSIS ? 06/12/2014 ? Hemicolectomy ? PAST SURGICAL HISTORY OF ? 1992 ? hysterectomy, bilateral oophorectomy ? PAST SURGICAL HISTORY OF Right 1953 ? R ankle compound fracture, childhood ? REM LESIO TRUNK,ARM,LEG 2.1-3.0CM Right 03/23/16 ? Exc. right upper arm infected pebbles cyst ? REP INIT INCI/VENTRAL HERNIA REDUCIBLE ? 06/12/2014 ? ? ? CURRENT MEDICATIONS Current Outpatient Medications Medication Sig ? insulin glargine (LANTUS SOLOSTAR U-100 INSULIN) 100 unit/mL (3 mL) Inject 40 Units subcutaneously every morning. Dx: E11.42 ? furosemide (LASIX) 40 mg tablet Take 1 tablet by mouth once daily. ? simvastatin (ZOCOR) 20 mg tablet Take 1 tablet by mouth daily at bedtime. ? fosinopril sodium (MONOPRIL) 40 mg tablet Take 1 tablet by mouth once daily. ? insulin aspart U-100 (NOVOLOG FLEXPEN U-100 INSULIN) 100 unit/mL (3 mL) Inject 18 units SQ TID with meals. HOLD IF GLUCOSE <100. If before meal glucose 200-299, add 2 units; 300 or higher, add 4 units. ? metFORMIN ER (GLUCOPHAGE XR) 500 mg 24 hr tablet Take 2 tablets by mouth daily with dinner. ? insulin needles, DISPOSABLE, (UNIFINE PENTIPS) 31 gauge x 5/16 Use one needle per dose. 4 times per day. Dx E11.42 ? celecoxib (CELEBREX) 100 mg capsule Take 1 capsule by mouth twice daily as needed (knee pain). ? spironolactone (ALDACTONE) 25 mg tablet Take 1 tablet by mouth once daily. ? mycophenolate Mofetil (CELLCEPT) 500 mg tablet Take 1 tablet by mouth twice daily. ? COMPOUNDED PRESCRIPTION diabetic shoes and orthotics Dx is E11.6. Insulin dependent ? BIPAP daily at bedtime. ? blood sugar diagnostic (FREESTYLE LITE STRIPS) test strip TEST BLOOD SUGARS 4-5 TIMES DAILY. Dx: E11.42. On insulin. Labile. ? Calcium-Cholecalciferol, D3, (CALCIUM 500 + D) 500 mg(1,250mg) -400 unit per tablet Take 1 tablet by mouth once daily. ? ? pyridostigmine (MESTINON) 60 mg tablet Take 0.5 tablets by mouth four times daily. ? aspirin, enteric coated (ASPIRIN, ENTERIC COATED) 81 mg EC tablet Take 1 tablet by mouth once daily. ? No current facility-administered medications for this visit. ? ? ALLERGIES: Codeine, Lipitor [Atorvastatin Calcium], Bacitracin, Bandaide [Other], [place] Trees [Other], Grass Pollen, Paper Trees [Other], Polyester Fibers, Sulfa (Sulfonamide Antibiotics), and Vicodin [Hydrocodone-Acetaminophen] ? PERSONAL HISTORY: SOCIAL HISTORY Social History ? Tobacco Use ? Smoking status: Former Smoker ? ? Packs/day: 0.20 ? ? Years: 15.00 ? ? Pack years: 3.00 ? ? Types: Cigarettes ? ? Quit date: 05/08/1995 ? ? Years since quittin.2 ? Smokeless tobacco: Never Used Substance Use Topics ? Alcohol use: Not Currently ? Drug use: No ? FAMILY HISTORY: FAMILY HISTORY FAMILY HISTORY Problem Relation Age of Onset ? Ischemic Heart Disease Mother ? ? Diabetes Mother ? ? other (CHFf) Mother ? ? other (lymphoma) Father ? ? other (Hyperlipidemia) Brother ? ? Heart Brother ? ? HI pacemaker ? ? REVIEW OF SYMPTOMS: The review of systems data was entered by the nurse and reviewed by me ? Nursing Notes: Rupali Arce RN 08/11/2020 3:16 PM Signed REVIEW OF SYSTEMS: General: The patient denies fatigue, notes weight loss, denies weight gain, denies feeling hot, and denies feelings of cold. Eyes: The patient denies glaucoma, notes eye injury/surgery, wears glasses or contacts. Ear/Nose/Throat: The patient notes allergies, denies hayfever, denies ear infections, and denies bloody noses. Cardiovascular: The patient denies chest pain, denies heart disease, notes high blood pressure,denies cardiac stent, denies prior heart attack, denies irregular heart beat, notes high cholesterol, denies poor circulation, denies heart failure, other cardiac issues, denies claudication, denies cold feet, denies peripheral arterial stent. Respiratory: The patient denies tuberculosis, denies pneumonia, denies frequent cough, denies pulmonary embolism, notes shortness of breath, and denies coughing up blood. Gastrointestinal: The patient denies difficulty swallowing, denies acid reflux, denies ulcers, denies vomiting, denies jaundice/hepatitis, denies gallbladder problems, denies black or tarry stools, denies hemorrhoids, denies bleeding from rectum, notes diverticulitis, denies constipation, notes diarrhea, denies loss of stool control, and denies hernias. Kidney/Bladder: The patient denies kidney stones, denies urine infections, and denies bloody urine, notes kidney failure. Skin: The patient denies a history of skin cancer, denies bleeding/changing moles, and notes a history of skin rash. Neurologic: The patient denies a history of epilepsy/convulsions, denies headaches, denies head/spinal injuries, and denies stroke/TIA. Psychiatric: The patient denies psychiatric medications, denies depression, and denies voices, denies substance abuse. Endocrine: The patient denies thyroid disorders, notes diabetes, and denies hormonal problems. Hematologic: The patient notes a history of bruising, denies bleeding, and notes anemia, denies blood clots. Infections: The patient notes a history of measles and mumps, notes rheumatic fever, and denies sexually transmitted diseases. Musculoskeletal: The patient denies back pain/injury, denies back problems, denies sciatica, notes knee/foot trouble, notes arthritis, or denies gout. ? ? When was patient's last Mammogram screening? 03/2018 ? Last Colonoscopy: 07/2016 ? Rupali Arce RN I have confirmed and edited as necessary, the PFSH and ROS obtained by others. ? PHYSICAL EXAMINATION: ? General: The patient is 80 year old female, well nourished, well hydrated in no acute distress. The patient is oriented to time, place, and person. ? VITALS: Blood pressure 110/70, pulse 86, temperature 36.3 ?C (97.4 ?F), temperature source Temporal Artery, weight 109.8 kg (242 lb), SpO2 93 %. Body mass index is 47.26 kg/m?. ? HEENT: Normal cephalic, ataumatic, pupils are equally round, sclera are anicteric, mucous membranes are moist, oropharynx is clear. Neck has no masses, asymmetry or lymphadenopathy. ? Respiratory: Clear to auscultation and percussion. Normal respiratory excursion and pattern. ? Cardiac: Examination is regular rate and rhythm. Normal S1/S2 ? Abdominal exam: Soft, nontender, with no palpable masses. No hepatosplenomegaly. No palpable hernias. ? Extremities: no clubbing, cyanosis or edema. No adenopathy. ? LABORATORY VALUES: As Noted ? RADIOLOGIC STUDIES: As Noted ? ? Assessment IMPRESSION: encounter for surveillance colonoscopy due to personal history of polyps. S/p ileocolectomy. Abdominal bloating and history of NSaID use- recommend EGD in addition to colonoscopy ? PLAN: I have reviewed my findings with the surgeon. Will plan for upper and lower endoscopy. We discussed the risks and benefits of the planned endoscopy. I have informed the patient that complications can occur including failure to complete the endoscopy and perforation. The patient had the opportunity to ask questions concerning the planned endoscopy. My staff has also explained the pr ocedure to the patient in understandable terms and has given the patient printed material concerning the procedure. The patient freely consents to surgery. ? The patient was offered a surgery/procedure at a [facility] facility. I have counseled the patient regarding the risk of exposure to and/or potential harm posed by the COVID-19 virus with having a surgery/procedure at this time versus the risk of? delaying the surgery/procedure. It is not possible to know either the risk of delaying the surgery or procedure or chance of getting an infection with perfect accuracy, but a joint decision was made between the patient and myself?to proceed at this time with endoscopy. ? ? I plan to use Miralax bowel preparation ? Patient instructed to contact PCP for instructions regarding diabetic medication, which may require adjustment during bowel preparation and/or day of procedure ? ? The patient has medical comorbidities for which we will plan for the procedure to be performed under Monitored Anesthetic [facility]. ? ? ? Diagnoses: (Z12.11) Encounter for screening for malignant neoplasm of colon (primary encounter diagnosis) (G70.00) Myasthenia gravis (HCC) (E66.01, Z68.42) Morbid obesity with BMI of 45.0-49.9, adult (HCC) (N18.30, D63.1) Anemia due to stage 3 chronic kidney disease, unspecified whether stage 3a or 3b CKD (HCC) (E11.22, N18.30, Z79.4) Type 2 diabetes mellitus with stage 3 chronic kidney disease, with long-term current use of insulin, unspecified whether stage 3a or 3b CKD (HCC) ? I spent a total of 30 minutes on the date of the service which included preparing to see the patient, [id number] patient care, completing clinical documentation, obtaining and/or reviewing separately obtained history, performing a medically appropriate examination, counseling and educating the patient/family/caregiver and ordering medications, tests, or procedures. ? Therese Gallego PA-C
[2020-09-02] VITALS (7 sets, daily range): BP systolic 118–154; BP diastolic 61–109; PULSE 53–77; RESP 16–18; TEMP 35.5–36.4; O2SAT 95–98; BMI 45.3
--- NOTE | 2020-09-02 | GASB_PTH ---
PATIENT: SERGIO WARREN LOC: EN U#:[id number] AGE/SX: 80/F ROOM: RE09/02/[address]: Dr. Carol Vergara MD : 1940 BED: DIS: 09/02/2020 SPEC #: [id number] RECD: 09/02/20 12:10 STATUS: CATINA REBailey #: [id number] MADELEINE: 09/02/20 00:[address]: Carol Vergara DEPT: SURGICAL PATHOLOGY RECD BY: Taras Quiroga ENTERED: 09/02/20 12:10 SP TYPE: Gastric Bx OTHR DR: Dr. Hector Del Cid MD Tissues: Gastric mucous membrane Procedures: Surgery Specimen Level IV HEADER OPERATION: Colonoscopy, EGD ([facility] [place]) PRE-OP DIAGNOSIS: History of colon polyps, ileocolectomy for large cecal polyp, abdomen bloating TISSUE SUBMITTED: Antral biopsy for H. pylori and path MICROSCOPIC DIAGNOSIS Antral biopsy: Mild gastritis. See microscopic description and comment. EVELINE:gertrudis 09/03/2020 COMMENT The results of immunohistochemistry for Helicobacter pylori will be reported separately ([id number]). MICROSCOPIC DESCRIPTION Slides are reviewed. The specimen shows fragments of gastric mucosa with chronic inflammatory cell infiltrates in the lamina propria consisting of lymphocytes and plasma cells, consistent with mild chronic gastritis. GROSS DESCRIPTION Received in fixative is one container labeled with the patient's name and designated antrum biopsy. The specimen consists of two irregular fragments of light cabrera soft tissue that in aggregate measure 0.6 x 0.3 x 0.1 cm. The specimen is totally submitted in one cassette. / EVELINE:gertrudis 09/02/20 TC:5 CPT: 87324
[2020-09-02] MEDS: Lactated Ringers 1,000 ML 100 ML IV (08:06)
[2020-09-02 08:15] LABS: Bedside Glucose 185 mg/dL (70-110)
--- NOTE | 2020-09-02 08:30 | IMM_PTH ---
PATIENT: SERGIO WARREN LOC: EN U#:[id number] AGE/SX: 80/F ROOM: RE09/02/[address]: Dr. Carol Vergara MD : 1940 BED: DIS: 09/02/2020 SPEC #: [id number] RECD: 09/02/20 13:03 STATUS: CATINA REBailey #: [id number] MADELEINE: 09/02/20 08:[address]: Carol Vergara DEPT: IMMUNOHISTOCHEMISTRY RECD BY: Laverne Mcleod ENTERED: 09/02/20 13:20 SP TYPE: IMMUNO OTHR DR: Dr. Hector Del Cid MD Tissues: Stomach, NOS Procedures: H Pylori (initial) PHYSICIAN & INSTITUTION [place] [id number] SPECIMEN INFORMATION: Tissue Source: Antral biopsy Clinical Info: History of colon polyps Specimen Number: [id number] CPT code: 12794 METHODOLOGY: Deparaffinized sections of prefer/formalin-fixed tissue or PAP/DQ stained slides are incubated with monoclonal/polyclonal antibodies/oligonucleotide probes. Localization is made via biotin free immunoperoxidase method. Appropriate controls are performed and reacted as expected. Results on target cell population are indicated in the following table: RESULTS: ANTIBODY / CLONE RESULT H Pylori (polyclonal) negative These tests were developed and their performance characteristics determined by [facility]. They may not have been cleared or approved by the U.S. Food and Drug Administration. The FDA has determined that such clearance or approval is not necessary. INTERPRETATION: Antral biopsy: Negative for Helicobacter pylori organisms. EVELINE:gertrudis 09/03/2020
--- NOTE | 2020-09-02 09:13 | OP.CCLET_ITS ---
09/02/2020 Hector Del Cid [address] [place] [address] Re : Upper GI endoscopy procedure for Griselda Tarun Dear Dr. Del Cid This procedure was performed on Wednesday, September 02, 2020. My impressions and recommendations are as follows: Impressions : - Normal first portion of the duodenum and second portion of the duodenum. - Erythematous mucosa in the antrum. Biopsied. - Small hiatal hernia. Recommendations : - Discharge patient to home (ambulatory). - Resume previous diet. - Continue present medications. - Await pathology results. - Follow up visit via telemedicine with Therese Gallego PA-C to discuss results. Call to set this up, thank you My findings are described in the full procedure note, which is enclosed. If I can be of further assistance, please feel free to contact me at Doctor phone number(s): , Work: . Sincerely, MD Carol Rocha MD 09/02/2020 9:13:03 AM This report has been signed electronically.
--- NOTE | 2020-09-02 09:13 | OP.EGD_ITS ---
Patient Name: Griselda Mcneil Procedure Date: 09/02/2020 8:30 AM Date of : 1940 Age: 80 Procedure: Upper GI endoscopy Indications: Dyspepsia Providers: Carol Vergara MD Referring MD: Hector Del Cid Medicines: See the Anesthesia note for documentation of the administered medications Patient Profile: Refer to note in patient chart for documentation of history and physical. Complications: No immediate complications. Procedure: Pre-Anesthesia Assessment: - see anesthesia note - see anesthesia note After obtaining informed consent, the endoscope was passed under direct vision. Throughout the procedure, the patient's blood pressure, pulse, and oxygen saturations were monitored continuously. The gastroscope was introduced through the mouth, and advanced to the second part of duodenum. The upper GI endoscopy was accomplished without difficulty. The patient tolerated the procedure well. Scope In: 8:36:05 AM Scope Out: 8:42:41 AM Total Procedure Duration Time 0 hours 6 minutes 36 seconds Findings: The first portion of the duodenum and second portion of the duodenum were normal. Striped mildly erythematous mucosa without bleeding was found in the gastric antrum. Biopsies were taken with a cold forceps for histology. Estimated blood loss was minimal. A small hiatal hernia was present. Impression: - Normal first portion of the duodenum and second portion of the duodenum. - Erythematous mucosa in the antrum. Biopsied. - Small hiatal hernia. Recommendation: - Discharge patient to home (ambulatory). - Resume previous diet. - Continue present medications. - Await pathology results. - Follow up visit via telemedicine with Therese Gallego PA-C to discuss results. Call to set this up, thank you Procedure Code(s): --- Professional --- 30613, Esophagogastroduodenoscopy, flexible, transoral; with biopsy, single or multiple Diagnosis Code(s): --- Professional --- K31.89, Other diseases of stomach and duodenum K44.9, Diaphragmatic hernia without obstruction or gangrene R10.13, Epigastric pain CPT copyright 2017 [employer]. All rights reserved. The codes documented in this report are preliminary and upon delivery engineer review may be revised to meet current compliance requirements. MD Carol Rocha MD 09/02/2020 9:13:03 AM This report has been signed electronically. Number of Addenda: 0 Note Initiated On: 09/02/2020 8:30 AM
--- NOTE | 2020-09-02 09:17 | OP.CCLET_ITS ---
09/02/2020 Hector Del Cid [id number] [place] [address] Re : Colonoscopy procedure for Griselda Tarun Dear Dr. Del Cid This procedure was performed on Wednesday, September 02, 2020. My impressions and recommendations are as follows: Impressions : - Non-bleeding external and internal hemorrhoids. - No specimens collected. Recommendations : - Repeat colonoscopy in 10 years for screening purposes. - Return to primary care physician PRN. - Continue present medications. My findings are described in the full procedure note, which is enclosed. If I can be of further assistance, please feel free to contact me at Doctor phone number(s): , Work: . Sincerely, MD Carol Rocha MD 09/02/2020 9:17:26 AM This report has been signed electronically.
--- NOTE | 2020-09-02 09:17 | OP.COLON_ITS ---
Patient Name: Griselda Mcneil Procedure Date: 09/02/2020 8:45 AM Date of : 1940 Age: 80 Procedure: Colonoscopy Indications: Screening for colorectal malignant neoplasm Providers: Carol Vergara MD Referring MD: Hector Del Cid Medicines: See the Anesthesia note for documentation of the administered medications Patient Profile: Refer to note in patient chart for documentation of history and physical. Last Colonoscopy: 3 years ago. Complications: No immediate complications. Procedure: Pre-Anesthesia Assessment: - see anesthesia note - see anesthesia note After I obtained informed consent, the scope was passed under direct vision. Throughout the procedure, the patient's blood pressure, pulse, and oxygen saturations were monitored continuously. The Colonoscope was introduced through the anus and advanced to the cecum, identified by the appendiceal orifice, ileocecal valve and palpation. The colonoscopy was performed without difficulty. The patient tolerated the procedure well. The quality of the bowel preparation was poor, there was still retained fecal material. Therefore lavage and aspiration was done to clear the fecal material. This took some time. The ferrell were cleared adequately. Scope In: 8:45:55 AM Scope Withdrawal Time 0 hours 16 minutes 24 seconds Scope Out: 9:08:30 AM Total Procedure Duration Time 0 hours 22 minutes 35 seconds Findings: The perianal and digital rectal examinations were normal. Non-bleeding external and internal hemorrhoids were found. Impression: - Non-bleeding external and internal hemorrhoids. - No specimens collected. Recommendation: - Repeat colonoscopy in 10 years for screening purposes. - Return to primary care physician PRN. - Continue present medications. Procedure Code(s): --- Professional --- G0121, Colorectal cancer screening; colonoscopy on individual not meeting criteria for high risk Diagnosis Code(s): --- Professional --- Z12.11, Encounter for screening for malignant neoplasm of colon K64.8, Other hemorrhoids CPT copyright 2017 [employer]. All rights reserved. The codes documented in this report are preliminary and upon director geophysical laboratory review may be revised to meet current compliance requirements. MD Carol Rocha MD 09/02/2020 9:17:26 AM This report has been signed electronically. Number of Addenda: 0 Note Initiated On: 09/02/2020 8:45 AM
== END 2020-09-02 10:11 ==
LOC: EN 07:18 → AC 07:18
PROVIDERS: PCP Internal Medicine; Referring Provider Internal Medicine; Visit Provider Surgery
PROC: 0DJD8ZZ Inspection of Lower Intestinal Tract, Via Natural or Artificial Opening Endoscopic (ICD-10-PCS; CPT 45378; principal; 2020-09-02 08:25)
DX: Z12.11 Encounter for screening for malignant neoplasm of colon (principal); K29.70 Gastritis, unspecified, without bleeding; K64.4 Residual hemorrhoidal skin tags; K64.8 Other hemorrhoids; K44.9 Diaphragmatic hernia without obstruction or gangrene; I13.10 Hypertensive heart and chronic kidney disease without heart failure, with stage 1 through stage 4 chronic kidney disease, or unspecified chronic kidney disease; E11.22 Type 2 diabetes mellitus with diabetic chronic kidney disease; N18.30 Chronic kidney disease, stage 3 unspecified; E66.01 Morbid (severe) obesity due to excess calories; G70.00 Myasthenia gravis without (acute) exacerbation; D63.1 Anemia in chronic kidney disease; E78.5 Hyperlipidemia, unspecified; M19.90 Unspecified osteoarthritis, unspecified site; G47.33 Obstructive sleep apnea (adult) (pediatric); M81.0 Age-related osteoporosis without current pathological fracture; Z87.19 Personal history of other diseases of the digestive system; Z79.82 Long term (current) use of aspirin; Z86.010 Personal history of colon polyps; Z79.4 Long term (current) use of insulin; Z95.0 Presence of cardiac pacemaker; Z90.710 Acquired absence of both cervix and uterus; Z87.891 Personal history of nicotine dependence; Z68.42 Body mass index [BMI] 45.0-49.9, adult; Z79.899 Other long term (current) drug therapy
CPT/HCPCS: 43239; 45378; 82962; 88305; 88342; J7050; J7120; J2405

== ENCOUNTER → 2020-09-19 07:01 | Outpatient (CLI) | payer MEDICARE, SELFPAY ==
[2020-09-02 07:49] VITALS: BMI 45.3
[2020-09-30 13:32] LABS: ACHR AB Modulating <12 % (0-20); ACHR Recep AB, Blocking 48 % (0-25); Acetylcholine Receptor Binding 1.78 nmol/L (0.00-0.24)
== END ==
PROVIDERS: PCP Internal Medicine; Referring Provider Psychiatry & Neurology Neurology; Visit Provider Psychiatry & Neurology Neurology
DX: G70.00 Myasthenia gravis without (acute) exacerbation (principal)
CPT/HCPCS: 36415; 83519; 84238

== ENCOUNTER → 2021-01-30 06:56 | Outpatient (CLI) | payer MEDICARE, SELFPAY ==
[2021-01-30 08:07] LABS: Anion Gap 8 (5-15); BUN 28 mg/dL (7-18); Chloride 103 mmol/L (98-107); Creatinine, Serum 1.12 mg/dL (0.55-1.02); EST Glomerular Filtration Rate 50 mL/min (>60); Est Glom Filt Rate - Afr Amer 60 mL/min (>60); Glucose 160 mg/dL (74-106); Potassium 4.2 mmol/L (3.5-5.1); Sodium Level 134 mmol/L (136-145)
[2021-01-30 08:34] LABS: Microalbumin,Random Urine 22.7 mg/L (NO RANGE EST.)
[2021-01-30 08:57] LABS: Hemoglobin A1c 6.1 % (3.8-5.6)
== END ==
LOC: LAB.FUTURE 06:58 → LAB 06:59
PROVIDERS: PCP Internal Medicine; Referring Provider Internal Medicine; Visit Provider Internal Medicine
DX: E11.22 Type 2 diabetes mellitus with diabetic chronic kidney disease (principal); N18.31 Chronic kidney disease, stage 3a; Z79.4 Long term (current) use of insulin
CPT/HCPCS: 36415; 80048; 82043; 82570; 83036

== ENCOUNTER 2021-02-21 19:47 | Emergency (ER) | payer MEDICARE, SELFPAY ==
[2021-02-21 19:50] VITALS: BP 164/113; PULSE 65; RESP 16; TEMP 36.8; O2SAT 94; BMI 46.7
[2021-02-21 19:53] VITALS: BP 164/113; PULSE 65; RESP 16; TEMP 36.8; O2SAT 94
--- NOTE | 2021-02-21 20:49 | EKG12_ITS ---
Test Reason : FEVER Blood Pressure : / mmHG Vent. Rate : 065 BPM Atrial Rate : 065 BPM P-R Int : 266 ms QRS Dur : 078 ms QT Int : 376 ms P-R-T Axes : -06 030 015 degrees QTc Int : 391 ms Sinus rhythm with 1st degree A-V block Low voltage QRS Borderline ECG Confirmed by SAMMY SHERWOOD, ANIYA ([id number]), film or videotape editor DORIAN JACKSON ([id number]) on 02/23/2021 9:20:58 AM Referred By: SOFI Confirmed By:ANIYA CHRISTIANSON MD
--- NOTE | 2021-02-21 21:28 | CPS ---
pt states lost taste and smell after mdi use-does not want to try-states breathing fine
--- NOTE | 2021-02-21 21:40 | RAD_ITS ---
INDICATION: cough EXAMINATION/TECHNIQUE: X-RAY - XR Chest 1 View COMPARISON: CT chest and x-ray 09/26/2014. COMPARED with chest x-ray 08/04/2018 and 09/24/2017. FINDINGS: LINES/DEVICES: None. LUNGS: Right lower lobe, perihilar increased attenuation suspicious for developing airspace disease. No appreciable air bronchograms. Lungs are otherwise clear with no appreciable pleural fluid. No pneumothorax. MEDIASTINUM AND CARDIOVASCULAR STRUCTURES: Heart size is increased however there is no cephalization or other evidence of pulmonary vascular congestion. BONES AND SOFT TISSUES: Age expected degenerative endplate changes distal thoracic spine. RAD/Chest 1 View (Portable) IMPRESSION: 1. Likely early pneumonia right lower lobe. Electronically Signed: Roderick Marrero DO at 22:59 EDT Tel , Service support ,
[2021-02-21 21:45] LABS: Absolute Lymphocyte Count 0.21 X10^3/uL (0.83-4.51); Absolute Neutrophil Count 2.2 X10^3/uL (2.0-7.7); Basophil# 0.01 X10^3/uL; Basophil% 0.4 % (0-1); Differential Indicated SCAN CRITERIA MET; Eosinophil# 0.03 X10^3/uL; Eosinophils% 1.1 % (0-5); Hematocrit 30.5 % (37-47); Hemoglobin 10.2 g/dL (12.0-15.0); Lymphocyte # 0.21 X10^3/ul (0.83-4.51); Lymphocyte % 7.7 % (19-41); Mean Corp Hgb Conc 33.4 g/dL (32-36); Mean Corpuscular Hgb 28.7 pg (27.0-32.0); Mean Corpuscular Volume 85.7 fL (81-99); Mean Platelet Vol. 11.7 fl (6.2-12.0); Monocyte# 0.27 X10^3/uL; NRBC Flagged by Analyzer 0 % (0-5); Neutrophil # 2.18 X10^3/uL (2.7-7.7); Neutrophil % 80.4 % (47-70); POSITIVE COUNT YES; POSITIVE DIFFERENTIAL YES; Platelet Count 64 K/mm3 (150-450); RBC Distribution Width CV 14.7 % (11.6-14.6); RBC Distribution Width SD 46.4 fl (35.1-43.9); Red Blood Count 3.56 M/mm3 (4.2-5.4); White Blood Count 2.7 K/mm3 (4.4-11.0)
[2021-02-21 22:05] LABS: ALB/GLOB Ratio 0.8 RATIO (0.9-2.4); AST(SGOT) 47 U/L (15-37); Alanine Aminotransfer ALT/SGPT 32 U/L (13-56); Albumin, Serum 2.8 g/dL (3.2-5.0); Alkaline Phosphatase 70 U/L (45-117); Anion Gap 9 (5-15); BUN 38 mg/dL (7-18); BUN/Creat Ratio 41.8 RATIO (10-20); Calcium,Total 8.4 mg/dL (8.5-10.1); Chloride 105 mmol/L (98-107); Creatinine, Serum 0.91 mg/dL (0.55-1.02); EST Glomerular Filtration Rate 63 mL/min (>60); Est Glom Filt Rate - Afr Amer 77 mL/min (>60); Estimated Creatinine Clearance 38.45 ml/min; Globulin 3.7 g/dL (2.2-4.2); Glucose 65 mg/dL (74-106); Hypochromasia RARE; Platelet Estimate MKD DEC (ADEQ); Potassium 5.4 mmol/L (3.5-5.1); Protein, Total 6.5 g/dL (6.4-8.2); Sodium Level 132 mmol/L (136-145); Troponin-I HS 17 pg/mL (3.0-54.0)
[2021-02-21 22:14] VITALS: BP 153/70; PULSE 65; RESP 20; O2SAT 94
[2021-02-21 22:23] LABS: Lactic Acid 0.6 mmol/L (0.4-1.9)
--- NOTE | 2021-02-21 23:16 | EDS_ITS ---
HPI History of Present Illness Chief Complaint: Fever Informant: patient Onset/Context/Timing Onset: Weeks (2) Context: Gradual Onset Timing: Continuous Quality: Chest Location: Aching Worsened by: Nothing Relieved by: Nothing Narrative Narrative: Patient presents with cough and shortness of breath that has been getting worse over the past 2 weeks. Patient states she was tested at the [facility] Covid test center on 1015 and tested positive for COVID-19. Patient states she feels like she is having a fever. Patient admits to some aching chest pain. Patient admits to a cough but denies any sputum production. Patient states nothing makes her symptoms worse and nothing makes them better. Patient admits to nausea but denies any vomiting. Patient states that her primary care physician told her to stop taking her Lasix, spironolactone, and fosinopril. [facility] Medical History Anemia Appendiceal tumor Atrial arrhythmia BiPAP (biphasic positive airway pressure) dependence Cancer Cardiopulmonary arrest CKD (chronic kidney disease) stage 3, GFR 30-59 ml/min Diabetes Diabetic peripheral neuropathy associated with type 2 diabetes mellitus Edema Essential hypertension Hx of thyroid nodule Hyperlipidemia Hypertension Injury of head and neck Irregular heart beat Kidney disease Loose, teeth Lymphedema Mild nonproliferative diabetic retinopathy of both eyes without macular edema associated with diabetes mellitus due to underlying condition Morbid obesity with body mass index of 40.0-49.9 Multiple thyroid nodules Myasthenia gravis Myasthenia gravis with acute exacerbation Non-rheumatic aortic stenosis Non-smoker CHUN treated with BiPAP Osteoarthritis Osteoporosis Post-menopausal Shortness of breath on exertion Stroke/cerebrovascular accident Type 2 diabetes mellitus without complication Wears glasses Home Medications aspirin 81 tab PO DAILY 06/24/14 [History Last Taken 06/24/14 09:00] calcium carbonate 500 mg (1,250 mg)-vitamin D3 400 unit tablet 1 tab PO DAILY tab 11/20/18 [History Last Taken Unknown] fosinopril 40 mg tablet 40 mg PO DAILY 11/20/18 [History Last Taken Unknown] mycophenolate mofetil 500 mg tablet 500 mg PO BID 11/20/18 [History Last Taken Unknown] pyridostigmine bromide 60 mg tablet 30 mg PO 4X/DAY tab 11/20/18 [History Last Taken 09/02/20 07:00] simvastatin 20 mg tablet 20 mg PO QHS 11/20/18 [History Last Taken Unknown] furosemide 40 mg tablet 40 mg PO DAILY tab 11/26/19 [History Last Taken Unknown] metformin 500 mg tablet,extended release 24 hr 1,000 mg PO QHS tab 11/26/19 [History Last Taken Unknown] celecoxib [Celebrex] 200 mg PO DAILY PRN 09/01/20 [History Last Taken Unknown] insulin aspart U-100 [Novolog Flexpen U-100 Insulin] 18 unit SUBCUT TID 09/01/20 [History Last Taken Unknown] insulin glargine [Lantus U-100 Insulin] 40 unit SUBCUT DAILY 09/01/20 [History Last Taken Unknown] acetaminophen 500 mg oral powder packet 500 mg PO Q6H PRN 11/24/20 [History Last Taken Unknown] spironolactone 25 mg tablet 25 mg PO DAILY #90 tab 11/24/20 [Rx Last Taken Unknown] Allergy/AdvReac Type Severity Reaction Status Date / Time acetaminophen [From Vicodin] Allergy Unknown Verified 11/24/20 13:02 atorvastatin calcium Allergy Unknown Verified 11/24/20 13:02 [From Lipitor] bacitracin Allergy Unknown Verified 11/24/20 13:02 codeine Allergy Unknown Verified 11/24/20 13:02 hydrocodone bitartrate Allergy Unknown Verified 11/24/20 13:02 [From Vicodin] Sulfa (Sulfonamide Allergy Unknown Verified 11/24/20 13:02 Antibiotics) BANDAIDS Allergy Unknown Uncoded 09/01/20 14:46 CHESTNUT TREES Allergy Unknown Uncoded 09/01/20 14:46 GRASS Allergy Unknown Uncoded 09/01/20 14:46 PAPER TREES Allergy Unknown Uncoded 09/01/20 14:46 POLYESTER FIBERS Allergy Unknown Uncoded 09/01/20 14:46 Family History Mother Heart disease Diabetes Cancer Surgical History History of appendectomy History of colectomy History of eyelid surgery History of herniorrhaphy History of hysterectomy History of right hemicolectomy (2014) Hx of cataract extraction Social History Smoking Status: Never smoker ROS ROS ED Constitutional Constitutional ED: Reports fever(s) and subjective; Denies chills Eyes Eyes: Denies blurry vision or change in vision ENT ENT ED: Denies rhinorrhea or sore throat Cardiovascular Cardiovascular: Reports chest pain; Denies palpitations Respiratory/Chest Respiratory/Chest: Reports cough and dyspnea Gastrointestinal Gastrointestinal: Reports nausea; Denies vomiting Genitourinary Genitourinary ED: Denies dysuria or hematuria Musculoskeletal Musculoskeletal: Denies back pain or neck pain Integumentary Denies abscess or rash Neurologic Neurologic: Denies headache(s) or weakness Allergic/Immunologic Allergic/Immunologic ED: Denies mouth swelling or urticaria EXAM Physical Exam Const Vital Signs: 02/21/21 19:50 02/21/21 19:53 02/21/21 19:54 Temperature 98.3 F 98.3 F Temperature Source Oral Oral Pulse Rate 65 65 Respiratory Rate 16 16 Respiratory Effort Non-Labored Short of Breath Blood Pressure 164/113 H 164/113 H Blood Pressure Mean 130 130 Pulse Ox 94 94 Oxygen Delivery Method Room Air Room Air 02/21/21 22:14 02/22/21 00:19 Temperature Temperature Source Pulse Rate 65 71 Respiratory Rate 20 H 20 H Respiratory Effort Blood Pressure 153/70 H 186/83 H Blood Pressure Mean 97 117 Pulse Ox 94 98 Oxygen Delivery Method Room Air Positive well nourished, well developed and obese General Appearance ED: well developed Nutritional Appearance: obese HEENT Reports moist mucous membranes Neck supple and no JVD Resp normal respiratory effort and clear to auscultation bilaterally Cardio regular rate, regular rhythm and no murmurs GI normal to inspection, nondistended, normoactive bowel sounds and non-tender Palpation: soft Extremity normal to inspection General Extremety ED: Negative for edema or tenderness General Extremity: Negative for edema Neuro oriented x3, CN's II-XII intact bilaterally and no sensory deficits noted Sensorium / Orientation: alert Motor Exam: strength 5/5 throughout Psych mental status grossly normal Skin no rashes or lesions noted MDM MDM MDM Narrative Medical decision making narrative: Patient was ordered 6 puffs of an albuterol inhaler. Patient refused this. Patient states that last time she had an inhaler she lost her sense of taste and smell. EKG was obtained. On my interpretation, it showed a sinus rhythm with a first-degree AV block with a rate of 65. NE interval, QRS interval, and QTc intervals were all normal. [place] was normal. There are no acute ST or T wave changes. The T waves are not peaked. Portable chest x-ray was obtained. There is 1 view. On my interpretation, there is questionable right lower lobe infiltrate. Bony thorax is normal. There is no cardiomegaly. Radiologist also interpreted the x-ray and agrees. CBC shows a white blood cell count of 2.7. There is a mild anemia with a hemoglobin of 10.2 hematocrit 30.5. Platelets were also low at 64. Comprehensive metabolic profile showed a mild hyponatremia of 132 and a mild hyperkalemia 5.4. Lactate was normal. BUN was slightly elevated at 38. Creatinine was normal. High-sensitivity troponin was obtained and was normal. 2-hour repeat high-sensitivity troponin was ordered. Patient was given calcium gluconate, insulin, and glucose for her potassium. Patient was instructed to follow-up with her primary care physician in 3 to 5 days. Patient does not qualify for monoclonal antibody therapy because her symptoms have been more than 10 days. Patient was instructed return if her shortness of breath is worse or her oxygen is low. Patient understands and is agreeable with the plan. All questions were answered. Lab Data Attestation: I reviewed the patient's lab results. Labs: Laboratory Results - last 24 hr 02/21/21 02/21/21 02/21/21 21:35 21:35 21:35 WBC 2.7 L RBC 3.56 L Hgb 10.2 L Hct 30.5 L MCV 85.7 MCH 28.7 MCHC 33.4 RDW Std Deviation 46.4 H RDW Coeff of Brigitte 14.7 H Plt Count 64 L MPV 11.7 Immature Gran % (Auto) 0.400 Neut % (Auto) 80.4 H Lymph % (Auto) 7.7 L [place] % (Auto) 10.0 Eos % (Auto) 1.1 Baso % (Auto) 0.4 Absolute Neuts (auto) 2.2 Absolute Lymphs (auto) 0.21 L Nucleated RBC % 0 Diff Path Review May foll Platelet Estimate MKD DEC Hypochromasia RARE Sodium 132 L Potassium 5.4 H Chloride 105 Carbon Dioxide 18.0 L Anion Gap 9 BUN 38 H Creatinine 0.91 Estim Creat Clear Calc 38.45 Est GFR (MDRD) Af Amer 77 Est GFR (MDRD) Non-Af 63 BUN/Creatinine Ratio 41.8 H Glucose 65 L Lactic Acid 0.6 Calcium 8.4 L Total Bilirubin 0.60 AST 47 H ALT 32 Alkaline Phosphatase 70 Troponin I High Sens 17 Total Protein 6.5 Albumin 2.8 L Globulin 3.7 Albumin/Globulin Ratio 0.8 L Radiography Chest X-Ray - ED: 1 View, Read by ED Physician, Read by Radiologist and Right Infiltrate Diagnostic Testing: Clinical Impression(s) from Imaging Studies Chest X-Ray 02/21/21 21:40 IMPRESSION: 1. Likely early pneumonia right lower lobe. Electronically Signed: Roderick Marrero, DO at 22:59 EDT Tel , Service support , EKG Initial EKG: Attestation: I personally reviewed and interpreted this EKG as follows: Interpretation: Sinus Rhythm (With first-degree AV block with a rate of 65) and No Acute Injury Pattern Prior EKG tracings: available for review Prior: Unchanged (08/04/2018) Discharge Plan Triage Chief Complaint: Fever ED Provider: Anurag David Dx/Rx/DC Orders Clinical Impression: Pneumonia due to COVID-19 virus, Hyperkalemia Instructions: Coronavirus Disease 2019 (COVID-19): Overview, ED Hyperkalemia Prescriptions: No Action fosinopril 40 mg tablet 40 mg PO DAILY RF: 0 mycophenolate mofetil 500 mg tablet 500 mg PO BID RF: 0 simvastatin 20 mg tablet 20 mg PO QHS RF: 0 calcium carbonate-vitamin D3 [Calcium 500 + D] 500 mg(1,250mg) -400 unit tablet 1 tab PO DAILY RF: 0 pyridostigmine bromide 60 mg tablet 30 mg PO 4X/DAY RF: 0 metformin 500 mg tablet extended release 24 hr 1,000 mg PO QHS RF: 0 furosemide 40 mg tablet 40 mg PO DAILY RF: 0 Tylenol Extra Strength 500 mg powder in packet 500 mg PO Q6H PRNRF: 0 spironolactone 25 mg tablet 25 mg PO DAILY Qty: 90 RF: 3 aspirin 81 MG tablet,chewable 81 tab PO DAILY RF: 0 celecoxib [Celebrex] 200 mg Capsule 200 mg PO DAILY PRN (Reason: Pain) RF: 0 Lantus U-100 Insulin 100 unit/mL Solution 40 unit SUBCUT DAILY RF: 0 insulin aspart U-100 [Novolog Flexpen U-100 Insulin] 100 unit/mL (3 mL) Insul in Pen 18 unit SUBCUT TID RF: 0 Primary Care Provider: Hector Del Cid Referrals: Hector Del Cid MD [Primary Care Provider] - 3-5 Days Disposition Disposition: Home, Self Care
[2021-02-22 00:19] VITALS: BP 186/83; PULSE 71; RESP 20; O2SAT 98
[2021-02-22 00:38] LABS: Troponin-I HS 17 pg/mL (3.0-54.0)
[2021-02-22] MEDS: Dextrose 50%-Water 25 GM/50 ML DISP.SYRIN IV (01:12)
[2021-02-22 01:32] VITALS: BP 169/80; PULSE 75; RESP 20; O2SAT 96
[2021-02-22 02:03] VITALS: BP 169/80; RESP 20; O2SAT 96
[2021-02-22 15:52] LABS: Pathologist Review Reviewed
== END 2021-02-22 02:19 | disposition home or self-care (01) ==
PROVIDERS: Emergency Provider Emergency Medicine; PCP Internal Medicine
DX: U07.1 COVID-19 (principal); J12.82 Pneumonia due to coronavirus disease 2019; E66.9 Obesity, unspecified; E11.22 Type 2 diabetes mellitus with diabetic chronic kidney disease; E11.3293 Type 2 diabetes mellitus with mild nonproliferative diabetic retinopathy without macular edema, bilateral; E11.42 Type 2 diabetes mellitus with diabetic polyneuropathy; E78.5 Hyperlipidemia, unspecified; I12.9 Hypertensive chronic kidney disease with stage 1 through stage 4 chronic kidney disease, or unspecified chronic kidney disease; N18.30 Chronic kidney disease, stage 3 unspecified; G47.33 Obstructive sleep apnea (adult) (pediatric); Z79.4 Long term (current) use of insulin; Z79.899 Other long term (current) drug therapy
CPT/HCPCS: 71045; 80053; 83605; 84484; 85025; 87040; 93005; 94664; 96365; 96375; 99285; J7050; A4216; J0610

== ENCOUNTER 2021-02-27 12:11 | Inpatient (IN) | payer MEDICARE, SELFPAY ==
[2021-02-27] VITALS (9 sets, daily range): BP systolic 110–143; BP diastolic 59–83; PULSE 73–91; RESP 16–24; TEMP 36.7–37.2; O2SAT 93–99; BMI 45.1; BMI 43.8
--- NOTE | 2021-02-27 13:28 | RAD_ITS ---
HISTORY: sob EXAMINATION/TECHNIQUE: XR Chest 1 View: Portable upright AP chest x-ray COMPARISON: 02/21/21 FINDINGS: LINES/DEVICES: None. LUNGS: Persistent bilateral airspace opacities with slight progression on the left. No consolidation or pleural effusion. MEDIASTINUM AND CARDIOVASCULAR STRUCTURES: Cardiac silhouette not enlarged. Central airways and mediastinal contour are unremarkable. BONES AND SOFT TISSUES: No acute bony abnormalities. RAD/Chest 1 View (Portable) IMPRESSION: Slight progression of bilateral airspace disease consistent with pneumonia including atypical or viral pneumonia. at 1531 Reported and signed by: Louis Reardon MD Electronically Signed: Louis Reardon MD at 15:30 EDT Tel , Service support ,
--- NOTE | 2021-02-27 13:29 | ED.VIS.DYS ---
HPI History of Present Illness Chief Complaint: Shortness of Breath Informant: patient Onset/Context/Timing Onset: Weeks (2-3) Context: gradual Timing: Continuous Quality: Positive for Dyspnea on exertion Current Severity: Moderate Maximum Severity: Moderate Worsened by: Exertion Relieved by: Rest Associated Symptoms cough Chest Pain: Positive for None Narrative Narrative: Patient presenting for worsening dyspnea in context of having COVID-19. States she was vaccinated but has not yet had the booster. She was in contact with friends that had Covid, she tested positive on 02/19 as an outpatient, states she has been a little short of breath the whole time and feels like it is getting worse. She had some chest discomfort she was seen here last week, she states that she does not have any chest pain now. She has chronic swelling in her legs that is not different. She states fevers are gone since couple days ago, still having cough, malaise, myalgias are improved. No diarrhea. She denies any known history of heart or lung disease. Patient states she is currently in independent living and has been unable to care for herself lately due to this illness. [facility] Medical History Anemia Appendiceal tumor Atrial arrhythmia BiPAP (biphasic positive airway pressure) dependence Cancer Cardiopulmonary arrest CKD (chronic kidney disease) stage 3, GFR 30-59 ml/min Diabetes Diabetic peripheral neuropathy associated with type 2 diabetes mellitus Edema Essential hypertension Hx of thyroid nodule Hyperlipidemia Hypertension Injury of head and neck Irregular heart beat Kidney disease Loose, teeth Lymphedema Mild nonproliferative diabetic retinopathy of both eyes without macular edema associated with diabetes mellitus due to underlying condition Morbid obesity with body mass index of 40.0-49.9 Multiple thyroid nodules Myasthenia gravis Myasthenia gravis with acute exacerbation Non-rheumatic aortic stenosis Non-smoker CHUN treated with BiPAP Osteoarthritis Osteoporosis Post-menopausal Shortness of breath on exertion Stroke/cerebrovascular accident Type 2 diabetes mellitus without complication Wears glasses Home Medications aspirin 81 tab PO DAILY 06/24/14 [History Last Taken 06/24/14 09:00] calcium carbonate 500 mg (1,250 mg)-vitamin D3 400 unit tablet 1 tab PO DAILY tab 11/20/18 [History Last Taken Unknown] fosinopril 40 mg tablet 40 mg PO DAILY 11/20/18 [History Last Taken Unknown] mycophenolate mofetil 500 mg tablet 500 mg PO BID 11/20/18 [History Last Taken Unknown] pyridostigmine bromide 60 mg tablet 30 mg PO 4X/DAY tab 11/20/18 [History Last Taken 09/02/20 07:00] simvastatin 20 mg tablet 20 mg PO QHS 11/20/18 [History Last Taken Unknown] furosemide 40 mg tablet 40 mg PO DAILY tab 11/26/19 [History Last Taken Unknown] metformin 500 mg tablet,extended release 24 hr 1,000 mg PO QHS tab 11/26/19 [History Last Taken Unknown] celecoxib [Celebrex] 200 mg PO DAILY PRN 09/01/20 [History Last Taken Unknown] insulin aspart U-100 [Novolog Flexpen U-100 Insulin] 18 unit SUBCUT TID 09/01/20 [History Last Taken Unknown] insulin glargine [Lantus U-100 Insulin] 40 unit SUBCUT DAILY 09/01/20 [History Last Taken Unknown] acetaminophen 500 mg oral powder packet 500 mg PO Q6H PRN 11/24/20 [History Last Taken Unknown] spironolactone 25 mg tablet 25 mg PO DAILY #90 tab 11/24/20 [Rx Last Taken Unknown] Allergy/AdvReac Type Severity Reaction Status Date / Time acetaminophen [From Vicodin] Allergy Unknown Verified 02/27/21 13:42 atorvastatin calcium Allergy Unknown Verified 02/27/21 13:42 [From Lipitor] bacitracin Allergy Unknown Verified 02/27/21 13:42 codeine Allergy Unknown Verified 02/27/21 13:42 hydrocodone bitartrate Allergy Unknown Verified 02/27/21 13:42 [From Vicodin] Sulfa (Sulfonamide Allergy Unknown Verified 02/27/21 13:42 Antibiotics) BANDAIDS Allergy Unknown Uncoded 02/27/21 13:42 CHESTNUT TREES Allergy Unknown Uncoded 02/27/21 13:42 GRASS Allergy Unknown Uncoded 02/27/21 13:42 PAPER TREES Allergy Unknown Uncoded 02/27/21 13:42 POLYESTER FIBERS Allergy Unknown Uncoded 02/27/21 13:42 Family History Mother Heart disease Diabetes Cancer Surgical History History of appendectomy History of colectomy History of eyelid surgery History of herniorrhaphy History of hysterectomy History of right hemicolectomy (2014) Hx of cataract extraction Social History Smoking Status: Former smoker ROS ROS ED Constitutional Constitutional ED: Reports body ache(s), chills, fatigue, fever(s), headache(s) and malaise Eyes Eyes: Denies change in vision or diplopia ENT ENT ED: Denies rhinorrhea or sore throat Cardiovascular Cardiovascular: Reports pedal edema; Denies chest pain or palpitations Respiratory/Chest Respiratory/Chest: Reports cough, dyspnea and dyspnea on exertion Gastrointestinal Gastrointestinal: Denies abdominal pain, diarrhea, nausea or vomiting Genitourinary Genitourinary ED: Denies dysuria or hematuria Musculoskeletal Musculoskeletal: Denies back pain or neck pain Integumentary Denies abscess or rash Neurologic Neurologic: Reports headache(s); Denies paresthesias or weakness Psychiatric Psychiatric: Denies anxiety or suicidal thoughts EXAM Physical Exam Const Vital Signs: 02/27/21 12:19 02/27/21 13:43 Temperature 99.0 F 99 F Temperature Source Oral Oral Pulse Rate 91 88 Respiratory Rate 22 H 24 H Respiratory Effort Non-Labored Short of Breath Respiratory Depth Normal Respiratory Pattern Tachypnea Blood Pressure 110/72 139/74 H Blood Pressure Mean 84 95 Pulse Ox 95 95 Oxygen Delivery Method Room Air Room Air Positive well nourished and well developed Constitutional Narrative: Malaised-appearing, no distress General Appearance ED: well developed and NAD HEENT Reports moist mucous membranes normocephalic and atraumatic Eyes PERRL and EOMs intact bilaterally Neck full ROM and supple Resp normal respiratory effort and clear to auscultation bilaterally Cardio regular rate, regular rhythm and no murmurs Rate: Negative for tachycardic GI non-tender and non-distended Auscultation: normoactive bowel sounds Palpation: soft Back/Spine no CVA tenderness General Back: other FROM Extremity normal to inspection and no calf tenderness General Extremety ED: Yes edema; Negative for pulses abnormal or tenderness General Extremity: edema bilateral lower extremity Details: moderate; Negative for pulses abnormal Neuro oriented x3, CN's II-XII intact bilaterally and no sensory deficits noted Sensorium / Orientation: awake and alert Motor Exam: strength 5/5 throughout Skin no rashes or lesions noted and no wounds MDM MDM MDM Narrative Medical decision making narrative: Patient maneuvered to the bedside commode and became much more dyspneic than she was at rest, desatted down to 88% and remaining there for several minutes before coming up to about 90%. Another time this occurred and she desatted down to 84%. She was placed on a 2 L nasal cannula, and is now well into the 90s. Chest x-ray is slightly worse than her last 1, consistent with Covid pneumonia. She indicates that she had symptoms for too long to be a candidate for monoclonal antibody infusion therapy. She is a candidate for Decadron which I am starting on her, and her work-up is otherwise unremarkable except for an elevated D-dimer for which she is getting a CT angiography. Plan is for admission given her oxygen requirement and respiratory insufficiency, acute debility. CT of the chest does not appear to show any pulmonary embolus on my inspection, the official report is pending. Lab Data Attestation: I reviewed the patient's lab results. Labs: Laboratory Results - last 24 hr 02/27/21 02/27/21 02/27/21 14:30 14:30 14:30 WBC 4.0 L RBC 3.68 L Hgb 10.4 L Hct 32.3 L MCV 87.8 MCH 28.3 MCHC 32.2 RDW Std Deviation 46.4 H RDW Coeff of Brigitte 14.3 Plt Count 117 L MPV 11.1 Immature Gran % (Auto) 1.000 H Neut % (Auto) 80.7 H Lymph % (Auto) 7.4 L [place] % (Auto) 8.2 Eos % (Auto) 2.5 Baso % (Auto) 0.2 Absolute Neuts (auto) 3.3 Absolute Lymphs (auto) 0.30 L Nucleated RBC % 0 Differential Comment SCANNED Diff Path Review May foll D-Dimer Quant (PE/DVT) 1.88 H* Sodium 132 L Potassium 4.3 Chloride 101 Carbon Dioxide 22.0 Anion Gap 9 BUN 30 H Creatinine 1.10 H Estim Creat Clear Calc 31.81 Est GFR (MDRD) Af Amer 62 Est GFR (MDRD) Non-Af 51 L BUN/Creatinine Ratio 27.3 H Glucose 213 H Calcium 9.1 Troponin I High Sens 9 Radiography Diagnostic Testing: Clinical Impression(s) from Imaging Studies Chest X-Ray 02/27/21 13:28 IMPRESSION: Slight progression of bilateral airspace disease consistent with pneumonia including atypical or viral pneumonia. at 1531 Reported and signed by: Louis Reardon MD Electronically Signed: Louis Reardon MD at 15:30 EDT Tel , Service support , EKG Initial EKG: Attestation: I personally reviewed and interpreted this EKG as follows: Interpretation: Sinus Rhythm (80), No Acute Injury Pattern and AV Block (1st deg) Prior EKG tracings: available for review Prior: Unchanged Discharge Plan Dx/Rx/DC Orders Clinical Impression: Pneumonia due to COVID-19 virus, Hypoxemia, Acute respiratory insufficiency Disposition Disposition: Acute Care Hospital [facility]
[2021-02-27 14:42] LABS: Absolute Neutrophil Count 3.3 X10^3/uL (2.0-7.7); Basophil# 0.01 X10^3/uL; Basophil% 0.2 % (0-1); Eosinophils% 2.5 % (0-5); Hematocrit 32.3 % (37-47); Hemoglobin 10.4 g/dL (12.0-15.0); Lymphocyte % 7.4 % (19-41); Mean Corp Hgb Conc 32.2 g/dL (32-36); Mean Corpuscular Hgb 28.3 pg (27.0-32.0); Mean Corpuscular Volume 87.8 fL (81-99); Mean Platelet Vol. 11.1 fl (6.2-12.0); Monocyte# 0.33 X10^3/uL; Monocyte% 8.2 % (0-10); NRBC Flagged by Analyzer 0 % (0-5); Neutrophil # 3.26 X10^3/uL (2.7-7.7); Neutrophil % 80.7 % (47-70); POSITIVE DIFFERENTIAL YES; Platelet Count 117 K/mm3 (150-450); RBC Distribution Width CV 14.3 % (11.6-14.6); RBC Distribution Width SD 46.4 fl (35.1-43.9); Red Blood Count 3.68 M/mm3 (4.2-5.4)
[2021-02-27 14:48] LABS: Differential Indicated SCAN CRITERIA MET
[2021-02-27 15:06] LABS: Anion Gap 9 (5-15); BUN 30 mg/dL (7-18); BUN/Creat Ratio 27.3 RATIO (10-20); Calcium,Total 9.1 mg/dL (8.5-10.1); Chloride 101 mmol/L (98-107); EST Glomerular Filtration Rate 51 mL/min (>60); Est Glom Filt Rate - Afr Amer 62 mL/min (>60); Estimated Creatinine Clearance 31.81 ml/min; Glucose 213 mg/dL (74-106); Potassium 4.3 mmol/L (3.5-5.1); Sodium Level 132 mmol/L (136-145); Troponin-I HS 9 pg/mL (3.0-54.0)
[2021-02-27 15:09] LABS: D-Dimer Quantitative (DVT/PE) 1.88 FEU/ug/m (0.27-0.49)
[2021-02-27 15:12] LABS: Differential Comment SCANNED
--- NOTE | 2021-02-27 15:12 | CT_ITS ---
HISTORY: sob, elevated d-dimer, + covid EXAMINATION: CTA Chest WO/W Contrast Injection TECHNIQUE: Helically acquired images were obtained of the chest following IV contrast as per pulmonary angiogram protocol with 3D reconstructions. A radiation dose optimization technique was used for this scan. IV Contrast dosage and agent: 100mL [id number] COMPARISON: 09/26/14 FINDINGS: LUNGS, PLEURA AND LARGE AIRWAYS: Multifocal and bilateral groundglass opacities with consolidation in the superior segment left lower lobe. No pleural effusions. THYROID: Stable 2.5 cm peripherally calcified nodule left lobe. PULMONARY ARTERIES: Normal in caliber. No pulmonary embolism. AORTA AND GREAT VESSELS: No aneurysm or dissection. HEART AND PERICARDIUM: Cardiomegaly. No pericardial effusion. MEDIASTINUM AND PERFECTO: No mediastinal or hilar adenopathy. Esophagus is unremarkable. No hiatal hernia. UPPER ABDOMEN: No acute pathology. Splenomegaly. BONES: No acute or aggressive abnormality. CT/CTA Chest W/WO Contrast IMPRESSION: Negative CTA Chest. Pulmonary findings consistent with Covid pneumonia. Cardiomegaly. Individualized dose optimization techniques were used for this CT. at 1711 Reported and signed by: Louis Reardon MD Electronically Signed: Louis Reardon MD at 17:10 EDT Tel , Service support ,
--- NOTE | 2021-02-27 16:34 | HP.PCM.HOS_ITS ---
HPI - General General Date of Admission: 02/27/21 Date of Service: 02/27/21 Chief Complaint: Shortness of breath HPI Narrative SERGIO WARREN, is a 80 F with multiple comorbidities as noted below who presented to the emergency department at [facility] on February 27, 2021 with a chief complaint of shortness of breath. The patient was diagnosed with COVID-19 having a positive test on 02/19 as an outpatient. She initially presented to the emergency department on February 21, 2021 complaining of fever and approximately 2 weeks of cough and shortness of breath at that time she was able to be discharged home but unfortunately did not qualify for monoclonal antibodies because presentation of symptoms was greater than 10 days of onset. She feels at this time she has had symptoms for 2 to 3 weeks. She came in today because she felt that she was having worsening dyspnea. She complains of some intermittent chest discomfort and states that her fevers have since resolved but she is still having cough, malaise, and intermittent myalgias. She has had no diarrhea but states her p.o. intake has been poor. She is currently lives in independent living and has been unable to care for herself lately due to her acute illness. Given the above factors we were requested to admit the patient. In the emergency department her vital signs were fairly stable other than she had oxygen desaturation to 84% with minimal exertion. At rest her oxygen saturations upon my arrival to the room were 99% on 2 L. At that time I was able to decrease her oxygen to 1 L at which time she maintained oxygenation. I discussed discharge with the ED doctor to home with supplemental oxygen but given her debility, chronic comorbidities and inability to fully care for herself we felt that admission would be most warranted at this time. Her CBC shows a leukopenia which is new, a stable chronic anemia, and stable chronic thrombocytopenia. Her BMP shows mild hyponatremia with mild BUN and creatinine elevation. Her serum glucose was 213 and a troponin was then attained given her chest discomfort and was 9. Chest x-ray showed slightly worsening bilateral airspace disease consistent with atypical/viral pneumonia. A CTA was pending upon admission and done secondary to an elevated D-dimer. Her EKG was reviewed and showed normal sinus rhythm with low voltage diffusely likely related to body habitus and no ST-T wave changes consistent with acute ischemia. [facility] Medical History Anemia Appendiceal tumor Atrial arrhythmia BiPAP (biphasic positive airway pressure) dependence Cancer Cardiopulmonary arrest CKD (chronic kidney disease) stage 3, GFR 30-59 ml/min Diabetes Diabetic peripheral neuropathy associated with type 2 diabetes mellitus Edema Essential hypertension Hx of thyroid nodule Hyperlipidemia Hypertension Injury of head and neck Irregular heart beat Kidney disease Loose, teeth Lymphedema Mild nonproliferative diabetic retinopathy of both eyes without macular edema associated with diabetes mellitus due to underlying condition Morbid obesity with body mass index of 40.0-49.9 Multiple thyroid nodules Myasthenia gravis Myasthenia gravis with acute exacerbation Non-rheumatic aortic stenosis Non-smoker CHUN treated with BiPAP Osteoarthritis Osteoporosis Post-menopausal Shortness of breath on exertion Stroke/cerebrovascular accident Type 2 diabetes mellitus without complication Wears glasses Home Medications aspirin 81 tab PO DAILY 06/24/14 [History Last Taken 06/24/14 09:00] calcium carbonate 500 mg (1,250 mg)-vitamin D3 400 unit tablet 1 tab PO DAILY tab 11/20/18 [History Last Taken Unknown] fosinopril 40 mg tablet 40 mg PO DAILY 11/20/18 [History Last Taken Unknown] mycophenolate mofetil 500 mg tablet 500 mg PO BID 11/20/18 [History Last Taken U nknown] pyridostigmine bromide 60 mg tablet 30 mg PO 4X/DAY tab 11/20/18 [History Last Taken 09/02/20 07:00] simvastatin 20 mg tablet 20 mg PO QHS 11/20/18 [History Last Taken Unknown] furosemide 40 mg tablet 40 mg PO DAILY tab 11/26/19 [History Last Taken Unknown] metformin 500 mg tablet,extended release 24 hr 1,000 mg PO QHS tab 11/26/19 [History Last Taken Unknown] celecoxib [Celebrex] 200 mg PO DAILY PRN 09/01/20 [History Last Taken Unknown] insulin aspart U-100 [Novolog Flexpen U-100 Insulin] 18 unit SUBCUT TID 09/01/20 [History Last Taken Unknown] insulin glargine [Lantus U-100 Insulin] 40 unit SUBCUT DAILY 09/01/20 [History Last Taken Unknown] acetaminophen 500 mg oral powder packet 500 mg PO Q6H PRN 11/24/20 [History Last Taken Unknown] spironolactone 25 mg tablet 25 mg PO DAILY #90 tab 11/24/20 [Rx Last Taken Unknown] Allergy/AdvReac Type Severity Reaction Status Date / Time acetaminophen [From Vicodin] Allergy Unknown Verified 02/27/21 13:42 atorvastatin calcium Allergy Unknown Verified 02/27/21 13:42 [From Lipitor] bacitracin Allergy Unknown Verified 02/27/21 13:42 codeine Allergy Unknown Verified 02/27/21 13:42 hydrocodone bitartrate Allergy Unknown Verified 02/27/21 13:42 [From Vicodin] Sulfa (Sulfonamide Allergy Unknown Verified 02/27/21 13:42 Antibiotics) BANDAIDS Allergy Unknown Uncoded 02/27/21 13:42 CHESTNUT TREES Allergy Unknown Uncoded 02/27/21 13:42 GRASS Allergy Unknown Uncoded 02/27/21 13:42 PAPER TREES Allergy Unknown Uncoded 02/27/21 13:42 POLYESTER FIBERS Allergy Unknown Uncoded 02/27/21 13:42 Family History Mother Heart disease Diabetes Cancer Surgical History History of appendectomy History of colectomy History of eyelid surgery History of herniorrhaphy History of hysterectomy History of right hemicolectomy (2014) Hx of cataract extraction Social History (Updated 02/27/21 @ 16:[address] Liz Cotto DO) Smoking Status: Former smoker alcohol intake: never substance use type: does not use ROS Constitutional Constitutional: Reports anorexia, fatigue, malaise, weakness and other Details: Had fevers but now resolved ; Denies change in weight, chills, fever(s) or night sweats Eyes Eyes: Denies blurry vision, change in eye color, change in vision, discharge from eye(s), double vision, erythema, eye pain, loss of vision or other ENT HEENT: Denies abnormal hearing, dysphagia, ear pain, epistaxis, headache(s), hearing loss, nasal congestion, nasal discharge, post nasal drip, sinus pressure, sore throat or other Cardiovascular Cardiovascular: Reports chest pain and dyspnea on exertion; Denies claudication, edema, lightheadedness, orthopnea, palpitations, paroxysmal nocturnal dyspnea, rapid heart rate, syncope or other Respiratory/Chest Respiratory/Chest: Reports cough, dyspnea, shortness of breath at rest and shortness of breath with exertion; Denies excessive phlegm production, hemoptysis, productive cough, wheezing or other Gastrointestinal Gastrointestinal: Denies abdominal pain, coffee ground emesis, constipation, diarrhea, dyspepsia, hematemesis, hematochezia, loose stools, melena, nausea, vomiting or other Genitourinary Genitourinary: Reports urinary incontinence; Denies burning urination, difficulty urinating, dysuria, hematuria, nocturia, urinary frequency, urinary hesitancy, urinary urgency or other Musculoskeletal Musculoskeletal: Reports joint pain, joint stiffness and myalgias; Denies arthralgias, back pain, joint swelling, neck pain or other Neurologic Neurologic: Denies abnormal gait, abnormal speech, confusion, disequilibrium, dizziness, focal weakness, headache(s), numbness, paresthesias, seizure-like activity, seizures, syncope, tingling, tremor(s) or other Psychiatric Psychiatric: Denies anxiety, depression, homicidal ideation, suicidal ideation or other Endocrine Endocrinology: Denies change in body appearance, cold intolerance, excessive sweating, heat intolerance, polydipsia, polyuria or other Hematologic/Lymphatic Hematologic/Lymphatic: Denies anemia, easy bleeding, easy bruising, lymphadenopathy or other Allergic/Immunologic Allergic/Immunologic: Denies rhinitis, hives, eczemia, asthma or other Vital Signs Vital Signs Vital Signs: 02/27/21 12:19 02/27/21 13:43 02/27/21 16:06 Temperature 99.0 F 99 F Temperature Source Oral Oral Pulse Rate 91 88 73 Respiratory Rate 22 H 24 H 21 H Respiratory Effort Non-Labored Short of Breath Respiratory Depth Normal Respiratory Pattern Tachypnea Blood Pressure 110/72 139/74 H 124/82 H Blood Pressure Mean 84 95 96 Pulse Ox 95 95 99 Oxygen Delivery Method Room Air Room Air Nasal Cannula Oxygen Flow Rate (L/min) 2 02/27/21 16:27 Temperature 98.1 F Temperature Source Oral Pulse Rate 73 Respiratory Rate 18 Respiratory Effort Respiratory Depth Respiratory Pattern Blood Pressure 143/83 H Blood Pressure Mean 103 Pulse Ox 98 Oxygen Delivery Method Nasal Cannula Oxygen Flow Rate (L/min) 2 Weight Weight: 108.409 kg Body Mass Index (BMI) 45.1 Physical Exam Const alert, oriented x3 and no apparent distress Constitutional Narrative: Morbidly obese elderly white female lying in bed, appears comfortable and nontoxic, nursing at bedside, communicates without any dyspnea with conversation however per nursing gets quite dyspneic with exertion General Appearance: cooperative HEENT normocephalic, head/scalp atraumatic, hearing grossly normal bilaterally, moist oral mucous membranes and oropharynx normal HEENT Narrative: Mallampati 2, dentures in place, no thrush Mouth: oral and palatal mucosa normal Eyes PERRL, EOMs intact bilaterally and conjunctivae normal Eyes Narrative: No scleral icterus Neck no lymphadenopathy, supple, no JVD and no carotid bruits Neck Narrative: Short thick neck, trachea midline, no thyroid enlargement noted Resp normal respiratory effort, no retractions, no use of accessory muscles and clear to auscultation bilaterally Resp Narrative: Distant secondary to body habitus and sounds diminished but clear, respiratory effort is normal at rest Auscultation: Negative for crackles, rales, rhonchi or wheezes Cardio regular rate, regular rhythm, S1 normal heart sound, S2 normal heart sound, no murmurs, no rub, no gallops, no clicks and no JVD Cardio Narrative: Distant heart tones secondary to body habitus GI normal to inspection, nondistended, normoactive bowel sounds, soft to palpation, non-tender and non-distended Extremity Extremity Narrative: Chronic trace bilateral lower extremity edema, no cyanosis or clubbing Peripheral Pulses: Yes pulses 2+ throughout Skin no rashes or lesions noted, no wounds, skin turgor normal, no jaundice, no petechiae and no mottling Skin Narrative: Pale Neuro oriented x3, CN's II-XII intact bilaterally, moves all extremities and no focal motor deficits Sensorium / Orientation: awake, alert, oriented to person, oriented to place and oriented to time Speech: speech normal Motor Exam: strength 5/5 throughout Psych affect normal Results Lab / Micro Data Attestation: I reviewed the patient's lab results. Result Diagrams: 02/27/21 14:30 02/27/21 14:30 Labs: Laboratory Results - last 24 hr 02/27/21 14:30: WBC 4.0 L, RBC 3.68 L, Hgb 10.4 L, Hct 32.3 L, MCV 87.8, MCH 28.3, MCHC 32.2, RDW Std Deviation 46.4 H, RDW Coeff of Brigitte 14.3, Plt Count 117 L, MPV 11.1, Immature Gran % (Auto) 1.000 H, Neut % (Auto) 80.7 H, Lymph % (Aut o) 7.4 L, [place] % (Auto) 8.2, Eos % (Auto) 2.5, Baso % (Auto) 0.2, Absolute Neuts (auto) 3.3, Absolute Lymphs (auto) 0.30 L, Nucleated RBC % 0, Differential Comment SCANNED, Diff Path Review September02/27/21 14:30: D-Dimer Quant (PE/DVT) 1.88 H* 02/27/21 14:30: Sodium 132 L, Potassium 4.3, Chloride 101, Carbon Dioxide 22.0, Anion Gap 9, BUN 30 H, Creatinine 1.10 H, Estim Creat Clear Calc 31.81, Est GFR (MDRD) Af Amer 62, Est GFR (MDRD) Non-Af 51 L, BUN/Creatinine Ratio 27.3 H, Glucose 213 H, Calcium 9.1, Troponin I High Sens 9 Radiology Impression Chest X-Ray 02/27/21 13:28 IMPRESSION: Slight progression of bilateral airspace disease consistent with pneumonia including atypical or viral pneumonia. at 1531 Reported and signed by: Louis Reardon MD Electronically Signed: Louis Reardon MD at 15:30 EDT Tel , Service support , Assessment & Plan Assessment/Plan (1) Acute and chronic respiratory failure with hypoxia: (2) Pneumonia due to COVID-19 virus: (3) Leukopenia: (4) Thrombocytopenia: (5) Hyponatremia: (6) D-dimer, elevated: PLAN: Acute hypoxic respiratory failure secondary to COVID-19 pneumonia -Patient was vaccinated but has not yet received her booster -Saturations are okay at rest but patient with marked desaturations with exertion -Minimal exertion caused hypoxemia with oxygen saturation to 84% -Continue 2 L nasal cannula and wean as able -Decadron day 1 of 10 -Patient is outside the window to receive remdesivir -Patient unable to tell me exactly when she started with symptoms but feels it was at least 2 weeks ago -Check sputum culture -Viral respiratory panel -Mucinex twice daily -Incentive spirometer/Acapella -Patient will likely not tolerate prone lying given body habitus -Encourage mobilization -Check daily NIF with history of myasthenia gravis -Likely restart Lasix tomorrow if ZAINAB has improved--> try to maintain euvolemia -Would have a low threshold to consult pulmonary medicine Leukopenia -Improved when compared to recent ED visit -Anticipate related to COVID-19 -Continue to monitor Chronic anemia/thrombocytopenia -Anemia is related to chronic disease -Both hemoglobin and platelet counts are stable -Continue to monitor D-dimer elevation -CTA of chest is pending -Anticipated this is just related to her Covid infection -If CTA negative for PE will use 40 mg twice daily with Lovenox for DVT prophylaxis History of myasthenia gravis -Continue CellCept -Continue Mestinon -Monitor closely and check daily NIF -Low threshold for pulmonary consult if symptoms worsen Hyponatremia -Hold Lasix dose for now -Likely related to elevated blood sugar and COVID-19 infection -Gentle hydration with 1 L only as p.o. intake has been poor and repeat in a.m. DM-2 -Continue daily Lantus 40 units subcu -Continue NovoLog 18 units 3 times daily -Accu-Cheks before meals and at bedtime -SSI -Hold home metformin Chronic pain -Hold Celebrex -Tylenol as needed Aortic stenosis -Echo from 2019 showed a valve area of 1.36 indicating mild left ear -No audible murmur with exam but patient was supine in body habitus is limiting -Continue to monitor Essential hypertension -Hold home Lasix for today and likely restart tomorrow -Continue fosinopril 40 mg daily -Continue Aldactone Hyperlipidemia -Continue simvastatin CHUN -Continue CPAP at 15 Morbid obesity -BMI is 45.2 -This complicates treatment, prognosis, and outcomes -Recommend weight loss DVT prophylaxis SCDs -Lovenox 40 mg subcu twice daily CODE STATUS -Full code-verified with the patient emergency department on admission Charges/Coding Visit Charges Inpatient E&M: 38825 Init Hosp L3
[2021-02-27] MEDS: 0.9% Normal Saline 1,000 ML 75 ML IV (17:45)
[2021-02-27 18:01] LABS: Bedside Glucose 163 mg/dL (70-110)
--- NOTE | 2021-02-27 21:16 | NURSING ---
Lab called concerning a swab received by them with no order able to be seen. Verified order for respiratory panel with primary RN, she states she was not the one that collected sample. Respiratory therapy called, they verified they collected sample and sent to lab. Voiced okay to lurdes as collected so lab will have access to order on their end and therefore able to run sample. Order marked collected.
[2021-02-27] MEDS: Enoxaparin 40 MG/0.4 ML Syringe SC (23:55)
[2021-02-27] MEDS: Simvastatin 20 MG Tablet PO (23:56)
[2021-02-27] MEDS: guaiFENesin 1,200 MG Tablet 1200 MG PO (23:56)
[2021-02-28] MEDS: Insulin Lispro 100 UNIT/ML INSULN.PEN SC ×5 (00:09→20:11)
[2021-02-28 00:21] LABS: Bedside Glucose 256 mg/dL (70-110)
[2021-02-28 04:47] VITALS: BP 146/76; PULSE 77; RESP 16; TEMP 36.4; O2SAT 93
--- NOTE | 2021-02-28 05:13 | NURSING ---
Pt reports taking Mestinon at approximately 5:50 am at home.
[2021-02-28 06:03] LABS: Absolute Lymphocyte Count 0.28 X10^3/uL (0.83-4.51); Absolute Neutrophil Count 2.2 X10^3/uL (2.0-7.7); Hematocrit 29.4 % (37-47); Hemoglobin 9.6 g/dL (12.0-15.0); Lymphocyte # 0.28 X10^3/ul (0.83-4.51); Lymphocyte % 10.1 % (19-41); Mean Corp Hgb Conc 32.7 g/dL (32-36); Mean Corpuscular Hgb 28.2 pg (27.0-32.0); Mean Corpuscular Volume 86.5 fL (81-99); Mean Platelet Vol. 10.6 fl (6.2-12.0); Monocyte# 0.23 X10^3/uL; Monocyte% 8.3 % (0-10); NRBC Flagged by Analyzer 0 % (0-5); Neutrophil # 2.24 X10^3/uL (2.7-7.7); Neutrophil % 80.5 % (47-70); POSITIVE DIFFERENTIAL YES; Platelet Count 126 K/mm3 (150-450); RBC Distribution Width CV 14.4 % (11.6-14.6); RBC Distribution Width SD 44.6 fl (35.1-43.9); White Blood Count 2.8 K/mm3 (4.4-11.0)
[2021-02-28 06:04] LABS: Differential Indicated SCAN CRITERIA MET
[2021-02-28 06:42] LABS: ALB/GLOB Ratio 0.6 RATIO (0.9-2.4); AST(SGOT) 61 U/L (15-37); Alanine Aminotransfer ALT/SGPT 100 U/L (13-56); Albumin, Serum 2.5 g/dL (3.2-5.0); Alkaline Phosphatase 157 U/L (45-117); Anion Gap 9 (5-15); BUN 31 mg/dL (7-18); BUN/Creat Ratio 32.2 RATIO (10-20); Calcium,Total 8.4 mg/dL (8.5-10.1); Chloride 106 mmol/L (98-107); Creatinine, Serum 0.96 mg/dL (0.55-1.02); EST Glomerular Filtration Rate 59 mL/min (>60); Est Glom Filt Rate - Afr Amer 72 mL/min (>60); Estimated Creatinine Clearance 36.44 ml/min; Globulin 3.9 g/dL (2.2-4.2); Glucose 200 mg/dL (74-106); Magnesium 1.8 mg/dL (1.6-2.6); Potassium 4.7 mmol/L (3.5-5.1); Protein, Total 6.4 g/dL (6.4-8.2); Sodium Level 135 mmol/L (136-145)
[2021-02-28 06:46] LABS: Differential Comment SCANNED
--- NOTE | 2021-02-28 06:55 | NURSING ---
Attempt to obtain fingerstick blood sugar x2 without success. Initial attempt, unit went blank. Second attempt noted strip error. Reported to oncoming nurse.
[2021-02-28] MEDS: Mycophenolate Mofetil 250 MG Capsule 500 MG PO ×2 (08:03→20:01)
[2021-02-28 08:05] VITALS: O2SAT 92
[2021-02-28] MEDS: Enoxaparin 40 MG/0.4 ML Syringe SC ×2 (08:08→20:01)
[2021-02-28 08:16] VITALS: BP 146/69; PULSE 60; RESP 16; TEMP 36.7; O2SAT 95
[2021-02-28 08:25] VITALS: O2SAT 90; O2SAT 95
[2021-02-28 08:31] LABS: Bedside Glucose 173 mg/dL (70-110)
[2021-02-28] MEDS: dexAMETHasone 4 MG Tablet 6 MG PO (09:27)
[2021-02-28] MEDS: guaiFENesin 1,200 MG Tablet 1200 MG PO ×2 (09:27→20:01)
[2021-02-28] MEDS: Famotidine 20 MG Tablet PO (09:27)
[2021-02-28] MEDS: Lisinopril 40 MG Tablet PO (09:27)
[2021-02-28] MEDS: Aspirin 81 MG TAB.CHEW PO (09:27)
[2021-02-28] MEDS: Calcium Carb/Vitamin D 1 TABLET Tablet PO (09:27)
[2021-02-28 11:26] LABS: Bedside Glucose 260 mg/dL (70-110)
[2021-02-28 14:13] VITALS: BP 132/62; PULSE 67; RESP 16; TEMP 36.9; O2SAT 94
--- NOTE | 2021-02-28 14:35 | PCM.PN.HOSP ---
Subjective Subjective Patient reports that she is feeling some better today. She states that she feels her breathing has improved. She is on room air at rest but still requires oxygen with exertion. Did get up to the chair okay. Energy seem to be a little bit better today and appetite had improved this afternoon as she ate most of her lunch. Objective Data Objective Data Vital Signs: Vital Signs Temp Pulse Resp BP Pulse Ox 98.4 F 67 16 132/62 H 94 02/28/21 14:13 02/28/21 14:13 02/28/21 14:13 02/28/21 14:13 02/28/21 14:13 Oxygen Flow Rate (L/min) 2 Oxygen Delivery Method Room Air Weight: 105.233 kg Body Mass Index (BMI) 43.8 Intake & Output: Intake and Output for Last 24 Hours 02/26/21 02/27/21 02/28/21 23:59 23:59 23:59 Intake Total 500 / 500 1450 / 1450 Balance 500 / 500 1450 / 1450 Lab / Micro Data Result Diagrams: 02/28/21 05:40 02/28/21 05:40 Labs: Laboratory Results - last 24 hr 02/27/21 14:30: WBC 4.0 L, RBC 3.68 L, Hgb 10.4 L, Hct 32.3 L, MCV 87.8, MCH 28.3, MCHC 32.2, RDW Std Deviation 46.4 H, RDW Coeff of Brigitte 14.3, Plt Count 117 L, MPV 11.1, Immature Gran % (Auto) 1.000 H, Neut % (Auto) 80.7 H, Lymph % (Auto) 7.4 L, [place] % (Auto) 8.2, Eos % (Auto) 2.5, Baso % (Auto) 0.2, Absolute Neuts (auto) 3.3, Absolute Lymphs (auto) 0.30 L, Nucleated RBC % 0, Differential Comment SCANNED, Diff Path Review September02/27/21 14:30: D-Dimer Quant (PE/DVT) 1.88 H* 02/27/21 14:30: Sodium 132 L, Potassium 4.3, Chloride 101, Carbon Dioxide 22.0, Anion Gap 9, BUN 30 H, Creatinine 1.10 H, Estim Creat Clear Calc 31.81, Est GFR (MDRD) Af Amer 62, Est GFR (MDRD) Non-Af 51 L, BUN/Creatinine Ratio 27.3 H, Glucose 213 H, Calcium 9.1, Troponin I High Sens 9 02/27/21 17:43: POC Glucose 163 H 02/27/21 23:53: POC Glucose 256 H 02/28/21 05:40: WBC 2.8 L, RBC 3.40 L, Hgb 9.6 L, Hct 29.4 L, MCV 86.5, MCH 28.2, MCHC 32.7, RDW Std Deviation 44.6 H, RDW Coeff of Brigitte 14.4, Plt Count 126 L, MPV 10.6, Immature Gran % (Auto) 1.100 H, Neut % (Auto) 80.5 H, Lymph % (Auto) 10.1 L, [place] % (Auto) 8.3, Eos % (Auto) 0.0, Baso % (Auto) 0.0, Absolute Neuts (auto) 2.2, Absolute Lymphs (auto) 0.28 L, Nucleated RBC % 0, Differential Comment SCANNED, Diff Path Review September foll 02/28/21 05:40: Sodium 135 L, Potassium 4.7, Chloride 106, Carbon Dioxide 20.0 L, Anion Gap 9, BUN 31 H, Creatinine 0.96, Estim Creat Clear Calc 36.44, Est GFR (MDRD) Af Amer 72, Est GFR (MDRD) Non-Af 59 L, BUN/Creatinine Ratio 32.2 H, Glucose 200 H, Calcium 8.4 L, Phosphorus 3.0, Magnesium 1.8, Total Bilirubin 0.60, AST 61 H, ALT 100 H, Alkaline Phosphatase 157 H, Total Protein 6.4, Albumin 2.5 L, Globulin 3.9, Albumin/Globulin Ratio 0.6 L, TSH 0.40 02/28/21 08:02: POC Glucose 173 H 02/28/21 11:18: POC Glucose 260 H Micro: Microbiology 02/28/21 09:40 Sputum, Expectorated/Coughed Gram Stain - Final 02/27/21 22:05 Mucosa - Nasopharyngeal Respiratory Panel (PCR) - Final Radiography Diagnostic Testing: Radiology Impression Chest X-Ray 02/27/21 13:28 IMPRESSION: Slight progression of bilateral airspace disease consistent with pneumonia including atypical or viral pneumonia. at 1531 Reported and signed by: Louis Reardon MD Electronically Signed: Louis Reardon MD at 15:30 EDT Tel , Service support , Chest CTA 02/27/21 15:12 IMPRESSION: Negative CTA Chest. Pulmonary findings consistent with Covid pneumonia. Cardiomegaly. Individualized dose optimization techniques were used for this CT. at 1711 Reported and signed by: Louis Reardon MD Electronically Signed: Louis Reardon MD at 17:10 EDT Tel , Service support , Physical Exam Const alert, oriented x3 and no apparent distress Constitutional Narrative: Morbidly obese elderly white female sitting up in chair at the bedside on room air watching television, appears comfortable and nontoxic, communicates without any dyspnea General Appearance: cooperative HEENT normocephalic, head/scalp atraumatic, hearing grossly normal bilaterally and moist oral mucous membranes HEENT Narrative: No thrush Head and Scalp: normocephalic Resp normal respiratory effort, no retractions, no use of accessory muscles and clear to auscultation bilaterally Resp Narrative: Distant secondary to body habitus and sounds diminished but clear, respiratory effort is normal at rest Auscultation: Negative for crackles, rales, rhonchi or wheezes Cardio regular rate, regular rhythm, S1 normal heart sound, S2 normal heart sound, no murmurs, no rub, no gallops, no clicks and no JVD Cardio Narrative: Distant heart tones secondary to body habitus GI normal to inspection, nondistended, normoactive bowel sounds, soft to palpation, non-tender and non-distended Extremity Extremity Narrative: Chronic trace bilateral lower extremity edema, no cyanosis or clubbing Peripheral Pulses: Yes pulses 2+ throughout Neuro oriented x3, moves all extremities and no focal motor deficits Sensorium / Orientation: awake and alert Speech: speech normal Psych affect normal Psych Narrative: Very pleasant Assessment & Plan Assessment/Plan (1) Acute and chronic respiratory failure with hypoxia: (2) Pneumonia due to COVID-19 virus: (3) Leukopenia: (4) Thrombocytopenia: (5) Hyponatremia: (6) D-dimer, elevated: PLAN: Acute hypoxic respiratory failure secondary to COVID-19 pneumonia -Patient was vaccinated but has not yet received her booster -Saturations are okay at rest but patient with marked desaturations with exertion -Minimal exertion caused hypoxemia with oxygen saturation to 84% -Nasal cannula is off at rest -Reevaluate tomorrow--> it is possible that patient may be able to be discharged with or without oxygen and likely will need home health care -Decadron day 2 of 10 -Patient is outside the window to receive remdesivir -Patient unable to tell me exactly when she started with symptoms but feels it was at least 2 weeks ago -Sputum culture is pending -Viral respiratory panel was negative -Continue Mucinex twice daily -Continue incentive spirometer/Acapella -Patient will likely not tolerate prone lying given body habitus -Continue to encourage mobilization -Check daily NIF with history of myasthenia gravis if respiratory status changes -Restart Lasix-Home dose -Would have a low threshold to consult pulmonary medicine Leukopenia -Anticipate related to COVID-19 -Continue to monitor Chronic anemia/thrombocytopenia -Anemia is related to chronic disease -Both hemoglobin and platelet counts are stable -Continue to monitor D-dimer elevation -CTA of chest Is negative for pulmonary embolism and pulmonary findings are consistent with COVID-19 -Anticipated this is just related to her Covid infection -Continue prophylactic dose Lovenox 40 mg twice daily History of myasthenia gravis -Continue CellCept -Continue Mestinon -Monitor closely and check daily NIF if respiratory status appears to be compromised any further or worsening -Low threshold for pulmonary consult if symptoms worsen Hyponatremia -Improving -Likely related to elevated blood sugar and COVID-19 infection DM-2 -Continue daily Lantus but increase to 46 units subcu as fasting sugar was 200 -Continue NovoLog 18 units 3 times daily -Accu-Cheks before meals and at bedtime -SSI -Hold home metformin Chronic pain -Hold Celebrex -Tylenol as needed Aortic stenosis -Echo from 2018 showed a valve area of 1.36 indicating mild left ear -No audible murmur with exam but patient was supine in body habitus is limiting -Continue to monitor Essential hypertension -Hold home Lasix for today and likely restart tomorrow -Continue fosinopril 40 mg daily -Continue Aldactone Hyperlipidemia -Continue simvastatin CHUN -Continue CPAP at 15 Morbid obesity -BMI is 45.2 -This complicates treatment, prognosis, and outcomes -Recommend weight loss DVT prophylaxis SCDs -Lovenox 40 mg subcu twice daily CODE STATUS -Full code-verified with the patient emergency department on admission Charges/Coding Visit Charges Inpatient E&M: 99031 Subs Hosp L2
[2021-02-28] MEDS: Insulin Lispro 100 UNIT/ML INSULN.PEN 18 UNIT SC (16:30)
[2021-02-28 16:41] LABS: Bedside Glucose 235 mg/dL (70-110)
[2021-02-28] MEDS: Simvastatin 20 MG Tablet PO (20:01)
[2021-02-28] MEDS: Pyridostigmine Bromide 60 MG Tablet 30 MG PO (20:06)
[2021-02-28 20:16] VITALS: BP 116/54; PULSE 67; RESP 17; TEMP 36.8; O2SAT 94
[2021-02-28 21:06] LABS: Bedside Glucose 221 mg/dL (70-110)
[2021-03-01 02:25] VITALS: BP 134/53; PULSE 53; RESP 17; TEMP 36.8; O2SAT 97
[2021-03-01 07:02] LABS: Absolute Lymphocyte Count 0.49 X10^3/uL (0.83-4.51); Absolute Neutrophil Count 3.7 X10^3/uL (2.0-7.7); Basophil# 0.01 X10^3/uL; Basophil% 0.2 % (0-1); Hematocrit 28.2 % (37-47); Hemoglobin 9.2 g/dL (12.0-15.0); Lymphocyte # 0.49 X10^3/ul (0.83-4.51); Lymphocyte % 10.7 % (19-41); Mean Corp Hgb Conc 32.6 g/dL (32-36); Mean Corpuscular Hgb 28.5 pg (27.0-32.0); Mean Corpuscular Volume 87.3 fL (81-99); Mean Platelet Vol. 11.2 fl (6.2-12.0); Monocyte# 0.36 X10^3/uL; Monocyte% 7.9 % (0-10); NRBC Flagged by Analyzer 0 % (0-5); Neutrophil # 3.67 X10^3/uL (2.7-7.7); Neutrophil % 80.3 % (47-70); POSITIVE DIFFERENTIAL YES; Platelet Count 136 K/mm3 (150-450); RBC Distribution Width CV 14.2 % (11.6-14.6); RBC Distribution Width SD 45.3 fl (35.1-43.9); Red Blood Count 3.23 M/mm3 (4.2-5.4); White Blood Count 4.6 K/mm3 (4.4-11.0)
[2021-03-01 07:24] LABS: ALB/GLOB Ratio 0.7 RATIO (0.9-2.4); AST(SGOT) 48 U/L (15-37); Alanine Aminotransfer ALT/SGPT 90 U/L (13-56); Albumin, Serum 2.5 g/dL (3.2-5.0); Alkaline Phosphatase 139 U/L (45-117); Anion Gap 9 (5-15); BUN 41 mg/dL (7-18); BUN/Creat Ratio 39.8 RATIO (10-20); Calcium,Total 8.8 mg/dL (8.5-10.1); Chloride 106 mmol/L (98-107); Creatinine, Serum 1.03 mg/dL (0.55-1.02); EST Glomerular Filtration Rate 55 mL/min (>60); Est Glom Filt Rate - Afr Amer 67 mL/min (>60); Estimated Creatinine Clearance 33.97 ml/min; Globulin 3.7 g/dL (2.2-4.2); Glucose 134 mg/dL (74-106); Potassium 4.6 mmol/L (3.5-5.1); Protein, Total 6.2 g/dL (6.4-8.2); Sodium Level 136 mmol/L (136-145)
[2021-03-01 07:32] LABS: Differential Indicated SCAN CRITERIA MET
[2021-03-01 07:34] LABS: Hypochromasia 1+; Platelet Estimate SLT DEC (ADEQ)
[2021-03-01] MEDS: Insulin Lispro 100 UNIT/ML INSULN.PEN 18 UNIT SC ×3 (08:45→17:14)
[2021-03-01 08:55] LABS: Bedside Glucose 128 mg/dL (70-110)
[2021-03-01 10:57] VITALS: BP 159/61; PULSE 54; RESP 16; TEMP 36.8; O2SAT 95
[2021-03-01] MEDS: Mycophenolate Mofetil 250 MG Capsule 500 MG PO ×2 (11:03→20:52)
[2021-03-01] MEDS: Aspirin 81 MG TAB.CHEW PO (11:03)
[2021-03-01] MEDS: dexAMETHasone 4 MG Tablet 6 MG PO (11:04)
[2021-03-01] MEDS: Enoxaparin 40 MG/0.4 ML Syringe SC ×2 (11:05→20:52)
[2021-03-01] MEDS: Furosemide 40 MG Tablet PO (11:05)
[2021-03-01] MEDS: Pyridostigmine Bromide 60 MG Tablet 30 MG PO ×4 (11:06→20:53)
[2021-03-01] MEDS: guaiFENesin 1,200 MG Tablet 1200 MG PO ×2 (11:07→20:52)
[2021-03-01] MEDS: Famotidine 20 MG Tablet PO (11:07)
[2021-03-01] MEDS: Calcium Carb/Vitamin D 1 TABLET Tablet PO (11:07)
[2021-03-01] MEDS: Lisinopril 40 MG Tablet PO (11:08)
[2021-03-01 11:27] VITALS: O2SAT 92; O2SAT 93
--- NOTE | 2021-03-01 12:20 | PCM.PN.HOSP ---
Subjective Subjective Follow-up on acute COVID-19 pneumonia/debility: Patient was seen and examined. She complains of feeling weak. She is not oxygen. Denies fever or chills. Objective Data Objective Data Vital Signs: Vital Signs Temp Pulse Resp BP Pulse Ox 98.2 F 54 L 16 159/61 H 93 03/01/21 10:57 03/01/21 10:57 03/01/21 10:57 03/01/21 10:57 03/01/21 11:27 Oxygen Flow Rate (L/min) 2 Oxygen Delivery Method Room Air Weight: 105.233 kg Body Mass Index (BMI) 43.8 Intake & Output: Intake and Output for Last 24 Hours 02/27/21 02/28/21 03/01/21 23:59 23:59 23:59 Intake Total 500 / 500 1900 / 1900 350 / 350 Balance 500 / 500 1900 / 1900 350 / 350 Lab / Micro Data Result Diagrams: 03/01/21 06:10 03/01/21 06:10 Labs: Laboratory Results - last 24 hr 02/28/21 16:28: POC Glucose 235 H 02/28/21 20:11: POC Glucose 221 H 03/01/21 06:10: WBC 4.6, RBC 3.23 L, Hgb 9.2 L, Hct 28.2 L, MCV 87.3, MCH 28.5, MCHC 32.6, RDW Std Deviation 45.3 H, RDW Coeff of Brigitte 14.2, Plt Count 136 L, MPV 11.2, Immature Gran % (Auto) 0.900, Neut % (Auto) 80.3 H, Lymph % (Auto) 10.7 L, [place] % (Auto) 7.9, Eos % (Auto) 0.0, Baso % (Auto) 0.2, Absolute Neuts (auto) 3.7, Absolute Lymphs (auto) 0.49 L, Nucleated RBC % 0, Platelet Estimate SLT DEC, Hypochromasia 1+ 03/01/21 06:10: Sodium 136, Potassium 4.6, Chloride 106, Carbon Dioxide 21.0, Anion Gap 9, BUN 41 H, Creatinine 1.03 H, Estim Creat Clear Calc 33.97, Est GFR (MDRD) Af Amer 67, Est GFR (MDRD) Non-Af 55 L, BUN/Creatinine Ratio 39.8 H, Glucose 134 H, Calcium 8.8, Total Bilirubin 0.60, AST 48 H, ALT 90 H, Alkaline Phosphatase 139 H, Total Protein 6.2 L, Albumin 2.5 L, Globulin 3.7, Albumin/Globulin Ratio 0.7 L 03/01/21 08:42: POC Glucose 128 H Micro: Microbiology 02/28/21 09:40 Sputum, Expectorated/Coughed Gram Stain - Final 02/28/21 09:40 Sputum, Expectorated/Coughed Respiratory Culture - Preliminary Appears to be normal respiratory jarad. Further studies to follow. 02/27/21 22:05 Mucosa - Nasopharyngeal Respiratory Panel (PCR) - Final Physical Exam Narrative Assessment & Plan Assessment/Plan (1) Acute and chronic respiratory failure with hypoxia: (2) Pneumonia due to COVID-19 virus: (3) Leukopenia: (4) Thrombocytopenia: (5) Hyponatremia: (6) D-dimer, elevated: PLAN: 1. Acute hypoxic respiratory failure secondary to COVID-19 pneumonia, improved Not on oxygen; Will continue on Decadron 2. Pancytopenia, remains fairly stable 3.Type 2 DM, blood sugars are fairly controlled, continue on Lantus with Premeal insulin insulin sliding scale Continue to hold Metformin 5. Rest of chronic medical conditions - chronic pain, Hyperlipidemia, CHUN, Hypertension, Morbid obesity, history of myasthenia gravis Home meds reviewed 6. Disposition: Possible DC in am Charges/Coding Visit Charges Inpatient E&M: 17183 Subs Hosp L2
[2021-03-01 12:55] LABS: Bedside Glucose 118 mg/dL (70-110)
[2021-03-01 13:12] LABS: Pathologist Review Reviewed
[2021-03-01 13:12] LABS: Pathologist Review Reviewed
[2021-03-01 14:45] VITALS: BP 105/71; PULSE 54; RESP 16; TEMP 37.3; O2SAT 94
--- NOTE | 2021-03-01 16:25 | CASEMGMT ---
Addendum entered by Kandace Kenney 03/02/21 13:15: Patient states had her Covid test at [facility] on [address] and upstairs with her doctor. CHAYO Puentes Original Note: RN CM Assessment Covid isolation- met with patient at bedside. Introduced role of RN CM to patient. Patient is alert, oriented and able to participate in RN CM Assessment. Care providers, pharmacy, and demographics verified. Admit Dx: Acute hypoxic respiratory failure s/t Covid Re-Admit: No Barriers/Issues: None PCP: Hector Del Cid Specialists: Cardio- Travis, MG- Dr Bell, GI- Yadiel, POD- Natasha Stevenson at [facility], Ophth-Enrique Preferred Pharmacy: [facility] Rx Benefit: Yes LNOK: Brother Joe Celestin LW/HPOA: Thinks she has completed both, aware not on file at [facility]. HPOA-brother Joe Celestin. Living Arrangements: Lives at [facility] Independent living. Has a Ramp and 1 step entry access. ADL?s: Ambulates with rollator or cane, Independent with ADLs. Has an Aid throught [facility] Care called [employer]- Personal Pal Aide every Monday for 2hrs to assist with house cleaning. Her cousin is a retired nurse and has been helping during patient having Covid. Transportation: Patient drives. Her Cousin Carley whom is a retired nurse will transport home. DME: [facility]- [facility], Glucometer, Rollator x2, Cane. HHC: Past with [facility]. Patient with current [facility] program called [employer] that monitors her VS/Blood work. SNF: None. Has been to Rehab-outpatient PT at [facility] Goal: Home and would like HH for PT/SN- preference with [facility]. In network list with star rating provided to patient. DME list provided if home O2 is needed and preference is [facility]. Patient currently on ra at rest. DC PLAN: Home with HH- PT/SN ([facility]), and possible home O2 ([facility]). CHAYO Puentes
[2021-03-01 17:35] LABS: Bedside Glucose 126 mg/dL (70-110)
[2021-03-01 20:49] VITALS: BP 149/61; PULSE 63; RESP 18; TEMP 37.1; O2SAT 96
[2021-03-01] MEDS: Simvastatin 20 MG Tablet PO (20:53)
[2021-03-01] MEDS: Insulin Lispro 100 UNIT/ML INSULN.PEN SC (20:53)
[2021-03-01 21:06] LABS: Bedside Glucose 163 mg/dL (70-110)
[2021-03-02 02:40] VITALS: BP 154/79; PULSE 51; RESP 18; TEMP 36.6; O2SAT 96
[2021-03-02 06:00] LABS: Absolute Neutrophil Count 4.5 X10^3/uL (2.0-7.7); Basophil# 0.01 X10^3/uL; Basophil% 0.2 % (0-1); Hematocrit 30.3 % (37-47); Hemoglobin 9.8 g/dL (12.0-15.0); Mean Corp Hgb Conc 32.3 g/dL (32-36); Mean Corpuscular Hgb 28.2 pg (27.0-32.0); Mean Corpuscular Volume 87.1 fL (81-99); Mean Platelet Vol. 10.6 fl (6.2-12.0); Monocyte# 0.45 X10^3/uL; Monocyte% 8.1 % (0-10); NRBC Flagged by Analyzer 0 % (0-5); Neutrophil # 4.51 X10^3/uL (2.7-7.7); Neutrophil % 81.4 % (47-70); POSITIVE DIFFERENTIAL YES; Platelet Count 143 K/mm3 (150-450); RBC Distribution Width CV 14.1 % (11.6-14.6); RBC Distribution Width SD 44.4 fl (35.1-43.9); Red Blood Count 3.48 M/mm3 (4.2-5.4); White Blood Count 5.5 K/mm3 (4.4-11.0)
[2021-03-02 06:02] LABS: Differential Indicated SCAN CRITERIA MET
[2021-03-02 06:18] LABS: Differential Comment SCANNED
[2021-03-02 06:22] LABS: ALB/GLOB Ratio 0.8 RATIO (0.9-2.4); AST(SGOT) 42 U/L (15-37); Alanine Aminotransfer ALT/SGPT 89 U/L (13-56); Albumin, Serum 2.7 g/dL (3.2-5.0); Alkaline Phosphatase 130 U/L (45-117); Anion Gap 9 (5-15); BUN 39 mg/dL (7-18); BUN/Creat Ratio 43.6 RATIO (10-20); Calcium,Total 8.9 mg/dL (8.5-10.1); Chloride 107 mmol/L (98-107); EST Glomerular Filtration Rate 65 mL/min (>60); Est Glom Filt Rate - Afr Amer 78 mL/min (>60); Estimated Creatinine Clearance 38.25 ml/min; Globulin 3.5 g/dL (2.2-4.2); Glucose 128 mg/dL (74-106); Potassium 4.5 mmol/L (3.5-5.1); Protein, Total 6.2 g/dL (6.4-8.2); Sodium Level 138 mmol/L (136-145)
--- NOTE | 2021-03-02 07:45 | PCM.DC ---
Discharge Instructions Diet Discharge Diet: 2000 mg Sodium Diet Activity Discharge Activity: Return to Normal Activity Follow Up Care Test Results: Test results from this visit will be discussed in further detail at your follow-up appointment, if applicable. Discharge Plan Admission Admit Date/Time: 02/27/21 16:05 Primary Reason for Your Visit: Acute COVID-19 infection Attending Provider: Annika Beaver Primary Care Provider: Hector Del Cid Instructions Additional Instructions / Restrictions: Complete your Decadron. Follow-up with your primary care doctor 1 to 2 weeks Discharge Orders/Prescriptions Prescriptions: New Lantus Solostar U-100 Insulin 100 unit/mL (3 mL) Insulin Pen 46 unit subcut DAILY 30 Days Qty: 13.8 RF: 0 dexamethasone 4 mg Tablet 6 mg PO DAILY 7 Days Qty: 11 RF: 0 Continued fosinopril 40 mg tablet 40 mg PO DAILY RF: 0 mycophenolate mofetil 500 mg tablet 500 mg PO BID RF: 0 simvastatin 20 mg tablet 20 mg PO QHS RF: 0 calcium carbonate-vitamin D3 [Calcium 500 + D] 500 mg(1,250mg) -400 unit tablet 1 tab PO DAILY RF: 0 pyridostigmine bromide 60 mg tablet 30 mg PO 4X/DAY RF: 0 metformin 500 mg tablet extended release 24 hr 1,000 mg PO QHS RF: 0 furosemide 40 mg tablet 40 mg PO DAILY RF: 0 Tylenol Extra Strength 500 mg powder in packet 500 mg PO Q6H PRN (Reason: Pain) RF: 0 spironolactone 25 mg tablet 25 mg PO DAILY Qty: 90 RF: 3 aspirin 81 MG tablet,chewable 81 tab PO DAILY RF: 0 Lantus U-100 Insulin 100 unit/mL Solution 40 unit SUBCUT DAILY RF: 0 insulin aspart U-100 [Novolog Flexpen U-100 Insulin] 100 unit/mL (3 mL) Insulin Pen 18 unit SUBCUT TID RF: 0 Discontinued celecoxib [Celebrex] 200 mg Capsule 200 mg PO DAILY PRN (Reason: Pain) RF: 0 Referrals / Follow Up: Hector Del Cid MD [Primary Care Provider] - (Monday LAB WORK @ 1030AM DR.VICTOR DEL CID March @ 11:00AM) Disposition Disposition (needs filled in before D/C Order can be placed): Home, Self Care
[2021-03-02] MEDS: Insulin Lispro 100 UNIT/ML INSULN.PEN 18 UNIT SC ×2 (08:28→12:35)
[2021-03-02 08:35] LABS: Bedside Glucose 117 mg/dL (70-110)
[2021-03-02] MEDS: Mycophenolate Mofetil 250 MG Capsule 500 MG PO (10:25)
[2021-03-02] MEDS: Aspirin 81 MG TAB.CHEW PO (10:25)
[2021-03-02] MEDS: Enoxaparin 40 MG/0.4 ML Syringe SC (10:26)
[2021-03-02] MEDS: dexAMETHasone 4 MG Tablet 6 MG PO (10:26)
[2021-03-02] MEDS: Furosemide 40 MG Tablet PO (10:26)
[2021-03-02] MEDS: Pyridostigmine Bromide 60 MG Tablet 30 MG PO ×2 (10:27→13:56)
[2021-03-02] MEDS: Famotidine 20 MG Tablet PO (10:28)
[2021-03-02] MEDS: Lisinopril 40 MG Tablet PO (10:28)
[2021-03-02] MEDS: Calcium Carb/Vitamin D 1 TABLET Tablet PO (10:28)
[2021-03-02] MEDS: guaiFENesin 1,200 MG Tablet 1200 MG PO (10:28)
--- NOTE | 2021-03-02 10:35 | DS.PCM_ITS ---
Providers Date of Admission: 02/27/21 Date of Discharge: 03/02/21 Primary Care Physician: Dr. Hector Del Cid MD Reason For Visit: ACUTE HYPOXIC RESIPRATORY FAILURE SECONDARY TO Diagnosis Discharge Diagnosis (1) Acute and chronic respiratory failure with hypoxia: Status: Resolved Code(s): J96.21 - Acute and chronic respiratory failure with hypoxia (2) Pneumonia due to COVID-19 virus: Status: Acute Code(s): U07.1 - COVID-19; J12.82 - Pneumonia due to coronavirus disease 2019 (3) Leukopenia: Status: Resolved Code(s): D72.819 - Decreased white blood cell count, unspecified (4) Thrombocytopenia: Status: Acute Code(s): D69.6 - Thrombocytopenia, unspecified (5) Hyponatremia: Status: Resolved Code(s): E87.1 - Hypo-osmolality and hyponatremia (6) D-dimer, elevated: Status: Acute Code(s): R79.89 - Other specified abnormal findings of blood chemistry Medications at Discharge Home Medications aspirin 81 tab PO DAILY 06/24/14 calcium carbonate 500 mg (1,250 mg)-vitamin D3 400 unit tablet 1 tab PO DAILY tab 11/20/18 fosinopril 40 mg tablet 40 mg PO DAILY 11/20/18 mycophenolate mofetil 500 mg tablet 500 mg PO BID 11/20/18 pyridostigmine bromide 60 mg tablet 30 mg PO 4X/DAY tab 11/20/18 simvastatin 20 mg tablet 20 mg PO QHS 11/20/18 furosemide 40 mg tablet 40 mg PO DAILY tab 11/26/19 metformin 500 mg tablet,extended release 24 hr 1,000 mg PO QHS tab 11/26/19 Lantus U-100 Insulin 40 unit SUBCUT DAILY 09/01/20 insulin aspart U-100 [Novolog Flexpen U-100 Insulin] 18 unit SUBCUT TID 09/01/20 acetaminophen 500 mg oral powder packet 500 mg PO Q6H PRN 11/24/20 spironolactone 25 mg tablet 25 mg PO DAILY #90 tab 11/24/20 dexamethasone 6 mg PO DAILY 7 Days #11 tab 03/02/21 Hospital Course Operations None Procedures None Summary of Care Provided Minutes Spent on Discharge: 45 Hospital Course: 80 y/o female with multiple comorbidities who presented with progressive shortness of breath. Patient was diagnosed with COVID-19 infection on 02/05 5 in the outpatient. She however comes in with fever, cough and progressive shortness of breath. Her symptoms have been going on for 2 to 3 weeks. She lives in an independent living facility. In the emergency room, her pulse ox was 84% with minimal exertion, this improved to 99% on 2 L. She was admitted to the hospital, and monitored. Her D-dimer was elevated. CTA of the chest did not show any acute PE. Patient continues to remain off oxygen. She was continued on Decadron. She did not qualify for oxygen at discharge. She was discharged to complete 10 days of Decadron. Physical Exam Narrative Physical exam: General: Alert, Oriented x3, Cooperative, No apparent distress, morbidly obese, comfortable HEENT: Atraumatic Oral: Moist Mucosa Neck: Supple Lungs: Clear to auscultation Cardiovascular: HS I+II, regular, no murmurs Abdomen: Bowel Sounds Present, Soft, Non Tender Extremities: No edema Weight / BMI Weight Weight: 105.233 kg Body Mass Index (BMI) 43.8 ABG / Lab / Microbiology Data Result Diagrams: 03/02/21 05:28 03/02/21 05:28 Laboratory: Laboratory Results - last 24 hr 02/27/21 14:30: Diff Path Review Reviewed 02/28/21 05:40: Diff Path Review Reviewed 03/01/21 12:43: POC Glucose 118 H 03/01/21 17:11: POC Glucose 126 H 03/01/21 20:45: POC Glucose 163 H 03/02/21 05:28: WBC 5.5, RBC 3.48 L, Hgb 9.8 L, Hct 30.3 L, MCV 87.1, MCH 28.2, MCHC 32.3, RDW Std Deviation 44.4 H, RDW Coeff of Brigitte 14.1, Plt Count 143 L, MPV 10.6, Immature Gran % (Auto) 1.300 H, Neut % (Auto) 81.4 H, Lymph % (Auto) 9.0 L , [place] % (Auto) 8.1, Eos % (Auto) 0.0, Baso % (Auto) 0.2, Absolute Neuts (auto) 4.5, Absolute Lymphs (auto) 0.50 L, Nucleated RBC % 0, Differential Comment SCANNED 03/02/21 05:28: Sodium 138, Potassium 4.5, Chloride 107, Carbon Dioxide 22.0, Anion Gap 9, BUN 39 H, Creatinine 0.90, Estim Creat Clear Calc 38.25, Est GFR (MDRD) Af Amer 78, Est GFR (MDRD) Non-Af 65, BUN/Creatinine Ratio 43.6 H, Glucose 128 H, Calcium 8.9, Total Bilirubin 0.40, AST 42 H, ALT 89 H, Alkaline Phosphatase 130 H, Total Protein 6.2 L, Albumin 2.7 L, Globulin 3.5, Albumin/Globulin Ratio 0.8 L 03/02/21 08:24: POC Glucose 117 H Microbiology: Microbiology 02/28/21 09:40 Sputum, Expectorated/Coughed Gram Stain - Final 02/28/21 09:40 Sputum, Expectorated/Coughed Respiratory Culture - Final Mixed normal respiratory jarad. No Streptococcus pneumoniae, beta-hemolytic Streptococcus or Staphylococcus aureus isolated. 02/27/21 22:05 Mucosa - Nasopharyngeal Respiratory Panel (PCR) - Final D/C Instructions Discharge Diet: 2000 mg Sodium Diet Meaningful Use Info Meaningful Use Diagnoses (Choose all that apply): None applicable Discharge Plan Admission Admit Date/Time: 02/27/21 16:05 Primary Reason for Your Visit: Acute COVID-19 infection Attending Provider: Annika Beaver Primary Care Provider: Hector Del Cid Instructions Additional Instructions / Restrictions: Complete your Decadron. Follow-up with your primary care doctor 1 to 2 weeks Discharge Orders/Prescriptions Prescriptions: New dexamethasone 4 mg Tablet 6 mg PO DAILY 7 Days Qty: 11 RF: 0 Continued fosinopril 40 mg tablet 40 mg PO DAILY RF: 0 mycophenolate mofetil 500 mg tablet 500 mg PO BID RF: 0 simvastatin 20 mg tablet 20 mg PO QHS RF: 0 calcium carbonate-vitamin D3 [Calcium 500 + D] 500 mg(1,250mg) -400 unit tablet 1 tab PO DAILY RF: 0 pyridostigmine bromide 60 mg tablet 30 mg PO 4X/DAY RF: 0 metformin 500 mg tablet extended release 24 hr 1,000 mg PO QHS RF: 0 furosemide 40 mg tablet 40 mg PO DAILY RF: 0 Tylenol Extra Strength 500 mg powder in packet 500 mg PO Q6H PRN (Reason: Pain) RF: 0 spironolactone 25 mg tablet 25 mg PO DAILY Qty: 90 RF: 3 aspirin 81 MG tablet,chewable 81 tab PO DAILY RF: 0 Lantus U-100 Insulin 100 unit/mL Solution 40 unit SUBCUT DAILY RF: 0 insulin aspart U-100 [Novolog Flexpen U-100 Insulin] 100 unit/mL (3 mL) Insu nataliya Pen 18 unit SUBCUT TID RF: 0 Discontinued celecoxib [Celebrex] 200 mg Capsule 200 mg PO DAILY PRN (Reason: Pain) RF: 0 Referrals / Follow Up: Hector Del Cid MD [Primary Care Provider] - (Monday LAB WORK @ 1030AM DR.VICTOR DEL CID March @ 11:00AM) Disposition Disposition (needs filled in before D/C Order can be placed): Home, Self Care
[2021-03-02 10:39] VITALS: BP 139/61; BP 140/59; BP 149/60; PULSE 53; PULSE 56; PULSE 57
[2021-03-02 10:55] VITALS: O2SAT 92; O2SAT 96
--- NOTE | 2021-03-02 11:41 | CASEMGMT ---
CHAYO Progress Note: 0958- Faxed HH for PT/SN/Aide to [facility] 1033- Called [facility] intake, s/w Beth and confirmed received faxed inquiry. 1104- Return call from raymundo at [facility] and confirmed received inquiry and accepts patient to [facility] tomorrow 03/03/21. Does have an Aide Twice/week for 30 minutes. As patient is Covid positive- both HH staff and patient will be required to wear PPE. updated primary nurse Goyo and will update patient. Patient to MD today, her ride around 1430. CHAYO Puentes
--- NOTE | 2021-03-02 12:28 | PHA.DC.MC ---
Pharmacy Service has performed discharge medication reconciliation and counseling for this patient. Patient counseled via telephone due to COVID precautions. 1. DEXAMETHASONE 6MG PO DAILY X 7 DAYS The patient's discharge medication list was reviewed for discrepancies and discrepancies were resolved. This [facility] spoke to Dr. Beaver, home Lantus of 40units was continued and a new Rx for 46 units was also started. Clarified only home dose of 40units should be continued. Dr. Beaver to d/c 46unit order. Home Medications aspirin 81 tab PO DAILY 06/24/14 calcium carbonate 500 mg (1,250 mg)-vitamin D3 400 unit tablet 1 tab PO DAILY tab 11/20/18 fosinopril 40 mg tablet 40 mg PO DAILY 11/20/18 mycophenolate mofetil 500 mg tablet 500 mg PO BID 11/20/18 pyridostigmine bromide 60 mg tablet 30 mg PO 4X/DAY tab 11/20/18 simvastatin 20 mg tablet 20 mg PO QHS 11/20/18 furosemide 40 mg tablet 40 mg PO DAILY tab 11/26/19 metformin 500 mg tablet,extended release 24 hr 1,000 mg PO QHS tab 11/26/19 Lantus U-100 Insulin 40 unit SUBCUT DAILY 09/01/20 insulin aspart U-100 [Novolog Flexpen U-100 Insulin] 18 unit SUBCUT TID 09/01/20 acetaminophen 500 mg oral powder packet 500 mg PO Q6H PRN 11/24/20 spironolactone 25 mg tablet 25 mg PO DAILY #90 tab 11/24/20 dexamethasone 6 mg PO DAILY 7 Days #11 tab 03/02/21 The patient was counseled on the following discharge medications and changes in medications for homegoing were reviewed. The Reason for Use, instructions for use, and potential side effects were reviewed for all new medications. The patient's questions regarding all of their medications were answered. The patient was able to verbally demonstrate an understanding of their discharge medications.
[2021-03-02 13:00] LABS: Bedside Glucose 124 mg/dL (70-110)
[2021-03-02 13:47] VITALS: BP 155/86; PULSE 59; RESP 18; TEMP 36.9; O2SAT 96
--- NOTE | 2021-03-03 15:46 | CASEMGMT ---
KEYSHA AVITIA Discharge Follow-Up Phone Call. Asha: 12 Strata: 3 Discharge Date: 03/02/21 Adm Dx: Acute Hypoxic Resp Failure secondary to COVID Call to pt to inquire about how she has been doing since being discharged from the hospital. Pt states, I'm doing much better. I'm thankful for that. Pt states she does feel like she is doing too much since returning home and is exhausted. KEYSHA AVITIA encouraged pt to take frequent rest breaks and not to over-do it. Pt voices understanding. Pt states she did get the new rx/steroid and is taking it as prescribed. She denies having any questions about the discharge instructions or medications. She is aware of the f/u appt w/Dr Del Cid. Pt states Br[facility] is slated to arrive at her home today around 4/4:15. She denies questions/concerns/needs at this time. Neeta MORSEN KEYSHA AVITIA
== END 2021-03-02 14:43 | disposition home or self-care (01) | DRG 177 ==
LOC: ED 16:06 → MS3 16:27
PROVIDERS: Admitting Provider Internal Medicine; Emergency Provider Emergency Medicine; PCP Internal Medicine; Visit Provider Internal Medicine
DX: U07.1 COVID-19 (principal); J12.82 Pneumonia due to coronavirus disease 2019; Z68.42 Body mass index [BMI] 45.0-49.9, adult; E87.1 Hypo-osmolality and hyponatremia; D61.818 Other pancytopenia; J96.11 Chronic respiratory failure with hypoxia; E11.42 Type 2 diabetes mellitus with diabetic polyneuropathy; E78.5 Hyperlipidemia, unspecified; I12.9 Hypertensive chronic kidney disease with stage 1 through stage 4 chronic kidney disease, or unspecified chronic kidney disease; E11.22 Type 2 diabetes mellitus with diabetic chronic kidney disease; D63.8 Anemia in other chronic diseases classified elsewhere; E66.01 Morbid (severe) obesity due to excess calories; G47.33 Obstructive sleep apnea (adult) (pediatric); N18.2 Chronic kidney disease, stage 2 (mild); G70.00 Myasthenia gravis without (acute) exacerbation; M19.90 Unspecified osteoarthritis, unspecified site; Z79.899 Other long term (current) drug therapy; Z79.82 Long term (current) use of aspirin; Z79.84 Long term (current) use of oral hypoglycemic drugs; Z86.74 Personal history of sudden cardiac arrest; Z87.891 Personal history of nicotine dependence
CPT/HCPCS: 36415; 71045; 71275; 80048; 80053; 82962; 83735; 84100; 84443; 84484; 85025; 85379; 87070; 87205; 87633; 93005; 94667; 94668; 97802; 99251; 99285; J7030; Q9967; G0463

== ENCOUNTER → 2021-12-10 | Outpatient (CLI) | payer MEDICARE, SELFPAY ==
--- NOTE | 2021-12-10 13:51 | ECHOCS_ITS ---
Reason For Study: MURMUR Procedure This was a 2D Doppler, Color Flow transthoracic echocardiogram. The study was technically difficult. Contrast injection was performed. Exam performed in department. Left Ventricle Normal LV size. Left ventricular systolic function is normal. The estimated ejection fraction is 55 %. Stage 1 diastolic dysfunction. No regional wall motion abnormalities noted. Right Ventricle Normal RV size. Normal systolic function. Atria Normal left atrium. Normal right atrium. Mitral Valve Normal mitral valve. Tricuspid Valve Normal tricuspid valve. Aortic Valve Trisinus/trileaflet aortic valve. Mild focal aortic valve calcification. Pulmonic Valve Normal pulmonic valve. Great Vessels Calcified aortic root. The pulmonary artery is normal size. Normal inferior vena cava. Pericardium/Pleural No pericardial effusion. Medication 22 gauge I.V. with prn adaptor inserted into right arm. Diluted definity 1.5ml given slow IV push to enhance endocardial definition. MMode/2D Measurements & Calculations LVIDd: 5.0 cm IVSd: 1.1 cm Ao root diam: 3.5 cm LVIDs: 2.5 cm LVPWd: 1.2 cm FS: 49.9 % LA dimension(2D): 4.8 cm Time Measurements MV dec time: 0.26 sec Doppler Measurements & Calculations MV E max toby: 92.1 cm/sec Lat Peak E' Toby: 13.1 cm/sec MV V2 max: 117.6 cm/sec MV A max toby: 121.1 cm/sec E/E' lat: 7.1 MV max P.5 mmHg MV E/A: 0.76 MV V2 mean: 60.5 cm/sec MV mean P.8 mmHg MV V2 VTI: 34.9 cm Ao V2 max: 147.1 cm/sec LV V1 max: 104.4 cm/sec MV dec slope: 1239 cm/sec2 Ao max P.1 mmHg LV V1 max P.4 mmHg Ao V2 mean: 105.3 cm/sec LV V1 mean P.2 mmHg Ao mean P.8 mmHg LV V1 mean: 68.4 cm/sec Ao V2 VTI: 31.3 cm LV V1 VTI: 21.2 cm PA V2 max: 123.5 cm/sec TR max toby: 175.0 cm/sec TR max P.3 mmHg ECHO/Echo Complete W/ Contrast Interpretation Summary Normal LV size. Left ventricular systolic function is normal. The estimated ejection fraction is 55 %. Stage 1 diastolic dysfunction. Contrast injection was performed. Ordering Physician: David Robles Referring Physician: Hector Del Cid M.D. Performed By: Jeanine Swenson RCS
== END | disposition home or self-care (01) ==
LOC: CVS 13:49
PROVIDERS: PCP Internal Medicine; Visit Provider Internal Medicine Cardiovascular Disease
DX: I35.0 Nonrheumatic aortic (valve) stenosis (principal); R01.1 Cardiac murmur, unspecified
CPT/HCPCS: 93306; Q9957; A4216; C8929

== ENCOUNTER → 2024-07-04 | Outpatient (CLI) | payer MEDICARE, SELFPAY ==
--- NOTE | 2024-07-04 14:48 | CT_ITS ---
PROCEDURE: CT CHEST WITHOUT CONTRAST REASON FOR EXAM: Appendiceal cancer. History of diabetes and hypertension. TECHNIQUE: Contiguous axial scans of mm slice thicknesses. Sagittal and coronal reconstruction images were obtained. One or more dose reduction techniques were used (e.g., automated exposure control, adjustment of mA and/or kv according to patient size, use of iterative reconstruction technique). CONTRAST: Not given. COMPARISON: CT chest dated 02/27/2021. FINDINGS: Lungs and Airways: The lungs are normally expanded and clear. A few tiny less than 2 mm micro nodules in the bilateral lungs. Pleura: No pleural effusion. No pneumothorax. Hear: Moderate cardiac enlargement. Coronary Artery Calcifications: Severe atherosclerotic calcific disease. Pericardium: No signs of pericardial effusion. Great vessels: No aortic aneurysms. Mild atherosclerotic calcifications of the aorta. No dilatation of the central pulmonary artery. Mediastinum/adriana: No mediastinal adenopathy. Thyroid: Large complex left thyroid nodule with calcifications measuring 3.5 x 2.8 cm, axial image 16. Upper Abdomen: Mild ascites. Multiple gallstones in the gallbladder neck. Severe splenic artery vascular calcifications. Bones: Multilevel spondylosis. CT/Chest without Contrast IMPRESSION: 1. No evidence of pulmonary metastatic disease. 2. Cardiomegaly. 3. Severe atherosclerotic calcific disease of the coronary arteries. 4. Large complex left thyroid nodule. Ultrasound may be helpful for further e valuation if indicated. 5. Mild ascites. 6. Cholelithiasis. 7. Other nonacute findings detailed above. Reading Location: [place] [address]
== END | disposition home or self-care (01) ==
LOC: CT 14:47
PROVIDERS: PCP Internal Medicine; Referring Provider Psychiatry & Neurology Neurology; Visit Provider Psychiatry & Neurology Neurology
DX: G70.00 Myasthenia gravis without (acute) exacerbation (principal)
CPT/HCPCS: 71250

== ENCOUNTER → 2024-10-07 | Outpatient (CLI) | payer MEDICARE, SELFPAY ==
[2024-10-07 19:03] LABS: FOLATES,SERUM (FOLIC ACID) 8.94 ng/mL (4.60-34.80)
[2024-10-07 19:04] LABS: ALB/GLOB Ratio 1.8 RATIO (0.9-2.4); AST(SGOT) 28 U/L (<=31); Alanine Aminotransfer ALT/SGPT 22 U/L (<=34); Alkaline Phosphatase 71 U/L (35-104); Anion Gap 10 (5-15); BUN 37 mg/dL (4-19); BUN/Creat Ratio 23.1 RATIO (10-20); Calcium,Total 9.8 mg/dL (7.6-11.0); Carbon Dioxide 23.1 mmol/L (21.0-32.0); Chloride 106 mmol/L (98-108); Creatinine, Serum 1.58 mg/dL (0.70-1.20); EST Glomerular Filtration Rate 32 (>60); Globulin 2.2 g/dL (2.2-4.2); Glucose 87 mg/dL (70-99); Potassium 5.4 mmol/L (3.3-5.1); Protein, Total 6.2 g/dL (5.9-8.4); Sodium Level 138 mmol/L (133-145); Total Bilirubin 0.71 mg/dL (0.00-1.30); Vitamin B12 404 pg/mL (180-914)
== END | disposition home or self-care (01) ==
LOC: MTLAB 15:52
PROVIDERS: PCP Internal Medicine; Referring Provider Psychiatry & Neurology Neurology; Visit Provider Psychiatry & Neurology Neurology
DX: G70.00 Myasthenia gravis without (acute) exacerbation (principal); G62.9 Polyneuropathy, unspecified; E04.9 Nontoxic goiter, unspecified
CPT/HCPCS: 36415; 80053; 82607; 82652; 82746; 83519; 83883; 84238; 84425; 84439; 84443

== ENCOUNTER → 2024-10-21 | Outpatient (CLI) | payer MEDICARE, SELFPAY ==
[2024-10-24 16:09] LABS: Albumin 3.4 g/dL (2.9-4.4); Alpha-1-Globulins 0.3 g/dL (0.0-0.4); Alpha-2-Globulins 0.8 g/dL (0.4-1.0); Gamma Globulin 0.7 g/dL (0.4-1.8); IMMUNOFIXATION RESULT,S Comment: (.); Immunoglobulin A 99 mg/dL (64-422); Immunoglobulin G 638 mg/dL (586-1602); Immunoglobulin M 94 mg/dL (26-217)
== END | disposition home or self-care (01) ==
LOC: MTLAB 13:45
PROVIDERS: PCP Internal Medicine; Referring Provider Psychiatry & Neurology Neurology; Visit Provider Psychiatry & Neurology Neurology
DX: G62.9 Polyneuropathy, unspecified (principal)
CPT/HCPCS: 36415; 82784; 84165; 86334; 86335

== ENCOUNTER → 2025-02-06 | Outpatient (CLI) | payer MEDICARE, SELFPAY ==
--- NOTE | 2025-02-06 12:51 | ECHOCS_ITS ---
Reason For Study Reason For Study: Aortic Stenosis Procedure This was a 2D Doppler, Color Flow transthoracic echocardiogram. Exam performed in department. Left Ventricle Normal LV size. The left ventricular ejection fraction is 65 %. Stage 1 diastolic dysfunction. No regional wall motion abnormalities noted. Right Ventricle Normal RV size. Normal systolic function. Atria Normal left atrium. Normal right atrium. Mitral Valve Bileaflet diffuse mitral valve thickening. Tricuspid Valve Normal tricuspid valve. Aortic Valve Trisinus/trileaflet aortic valve. Moderate focal aortic valve calcification. Peak aortic valve gradient 20 mmHg. Mean aortic valve gradient 11 mmHg. Mild aortic stenosis. Pulmonic Valve The pulmonic valve is not well visualized. Great Vessels Normal aortic root. The pulmonary artery is normal size. Inferior vena cava collapse with respiration. Pericardium/Pleural No pericardial effusion. Medication 22 gauge I.V. with prn adaptor inserted into right arm. Diluted definity 1ml given slow IV push to enhance endocardial definition. MMode/2D Measurements & Calculations LVIDd: 5.0 cm IVSd: 0.97 cm LVOT diam: 2.0 cm LVIDs: 3.5 cm LVPWd: 1.1 cm FS: 31.0 % LVOT area: 3.3 cm2 Ao root diam: 4.0 cm LAV(MOD-sp4): 57.3 ml LVAd ap4: 36.0 cm2 LVLd ap4: 9.0 cm EDV(MOD-sp4): 120.4 ml EDV(sp4-el): 122.9 ml LVAs ap4: 20.0 cm2 LVLs ap4: 7.4 cm ESV(MOD-sp4): 46.8 ml ESV(sp4-el): 46.0 ml EF(MOD-sp4): 61.1 % EF(sp4-el): 62.5 % SV(MOD-sp4): 73.6 ml SV(sp4-el): 76.9 ml LA A4 area: 19.8 cm2 SI(MOD-sp4): 36.2 ml/m2 LA dimension(2D): 5.4 cm RA A4 area: 14.9 cm2 Time Measurements MV dec time: 0.37 sec Doppler Measurements & Calculations MV E max toby: 101.3 cm/sec Lat Peak E' Toby: 8.6 cm/sec Med Peak E' Toby: 7.9 cm/sec MV A max toby: 119.6 cm/sec E/E' lat: 11.7 E/E' med: 12.9 MV E/A: 0.85 MV V2 max: 142.9 cm/sec MV P1/2t max toby: 119.1 cm/sec Ao V2 max: 226.2 cm/sec MV max P.2 mmHg MV P1/2t: 119.5 msec Ao max P.6 mmHg MV V2 mean: 75.1 cm/sec MV dec slope: 291.8 cm/sec2 Ao V2 mean: 152.1 cm/sec MV mean P.7 mmHg MVA(P1/2t): 1.8 cm2 Ao mean P.7 mmHg MV V2 VTI: 51.9 cm Ao V2 VTI: 50.1 cm MVA(VTI): 1.5 cm2 AV (velocity ratio): 0.49 ZHOU(I,D): 1.6 cm2 ZHOU(V,D): 1.5 cm2 LV V1 max: 105.9 cm/sec SV(LVOT): 79.9 ml PA V2 max: 131.7 cm/sec LV V1 max P.5 mmHg LV V1 mean P.2 mmHg LV V1 mean: 69.3 cm/sec LV V1 VTI: 24.4 cm ECHO/Echo Complete W/ Contrast Interpretation Summary Normal LV size. The left ventricular ejection fraction is 65 %. Stage 1 diastolic dysfunction. Mean aortic valve gradient 11 mmHg. Mild aortic stenosis. Moderate focal aortic valve calcification. Contrast injection was performed. Ordering Physician: Cris Olvera Referring Physician: Cris Olvera Performed By: Tray Pickens RCS
== END | disposition home or self-care (01) ==
LOC: CVS 12:51
PROVIDERS: PCP Internal Medicine; Referring Provider Nurse Practitioner Gerontology; Visit Provider Nurse Practitioner Gerontology
DX: I35.0 Nonrheumatic aortic (valve) stenosis (principal)
CPT/HCPCS: 93306; Q9957; A4216; C8929

== ENCOUNTER → 2025-02-10 | Outpatient (CLI) | payer MEDICARE, SELFPAY ==
[2025-02-13 14:08] LABS: Albumin 3.4 g/dL (2.9-4.4); Gamma Globulin 0.7 g/dL (0.4-1.8); Immunoglobulin A 97 mg/dL (64-422); Immunoglobulin G 690 mg/dL (586-1602); Immunoglobulin M 96 mg/dL (26-217); PROEL- TOTAL PROTEIN 5.9 g/dL (6.0-8.5)
== END | disposition home or self-care (01) ==
PROVIDERS: PCP Internal Medicine; Referring Provider Psychiatry & Neurology Neurology; Visit Provider Psychiatry & Neurology Neurology
DX: G62.9 Polyneuropathy, unspecified (principal)
CPT/HCPCS: 36415; 82784; 84165; 86334